=== PATIENT | female | born 1945 | race Caucasian/White ===

== ENCOUNTER → 2018-02-08 14:26 | Outpatient (CLI) | payer OTHER, SELFPAY ==
[2018-02-08 15:20] LABS: Hematocrit 37.4 % (36-46); Hemoglobin 12.7 g/dL (12.0-16.0)
[2018-02-08 16:05] LABS: BUN Creatinine Ratio 9.4 (6-22); Blood Urea Nitrogen 29 mg/dL (7-17); Calcium 9.8 mg/dL (8.4-10.2); Carbon Dioxide 23 mmol/L (22-32); Chloride 104 mmol/L (98-107); Estimated Glomerular Filt Rate 14.9 mL/min (>60); Glucose 110 mg/dL (80-110); HEMOLYSIS < 15 (0-50); Potassium 4.9 mmol/L (3.4-5.1); Sodium 140 mmol/L (137-145)
[2018-02-10 16:12] LABS: Parathyroid Hormone Int 102 pg/mL (14-64)
== END ==
PROVIDERS: PCP Family Medicine; Visit Provider Student in an Organized Health Care Education/Training Program
DX: N05.9 Unspecified nephritic syndrome with unspecified morphologic changes (principal); D50.0 Iron deficiency anemia secondary to blood loss (chronic); D64.9 Anemia, unspecified; N25.81 Secondary hyperparathyroidism of renal origin
CPT/HCPCS: 36415; 80048; 82728; 83970; 85014; 85018

== ENCOUNTER → 2018-04-12 15:38 | Outpatient (CLI) | payer OTHER, SELFPAY ==
[2018-04-12 16:00] LABS: Hematocrit 35.7 % (36-46); Hemoglobin 11.9 g/dL (12.0-16.0)
[2018-04-12 16:26] LABS: HEMOLYSIS < 15 (0-50); Iron 78 ug/dL (37-170)
[2018-04-12 16:29] LABS: BUN Creatinine Ratio 8.2 (6-22); Blood Urea Nitrogen 28 mg/dL (7-17); Calcium 9.8 mg/dL (8.4-10.2); Carbon Dioxide 23 mmol/L (22-32); Chloride 108 mmol/L (98-107); Estimated Glomerular Filt Rate 13.4 mL/min (>60); Glucose 134 mg/dL (80-110); HEMOLYSIS < 15 (0-50); Potassium 4.8 mmol/L (3.4-5.1); Sodium 145 mmol/L (137-145)
[2018-04-12 16:37] LABS: Percent Iron Saturation 29 % (15-50); Total Iron Binding Capacity 267 ug/dL (265-497); Transferrin 220 mg/dL (206-381)
== END ==
PROVIDERS: PCP Family Medicine; Visit Provider Student in an Organized Health Care Education/Training Program
DX: N05.9 Unspecified nephritic syndrome with unspecified morphologic changes (principal); D50.0 Iron deficiency anemia secondary to blood loss (chronic); D64.9 Anemia, unspecified
CPT/HCPCS: 36415; 80048; 82728; 83540; 83550; 85014; 85018

== ENCOUNTER → 2018-04-14 08:00 | Outpatient (CLI) | payer OTHER, SELFPAY ==
[2018-04-14 09:16] LABS: Hemoglobin A1C% w Est Avg Glu 4.9 % (4.0-6.0)
[2018-04-14 09:32] LABS: Alanine Aminotransferase 22 IU/L (9-52); Albumin 3.9 g/dL (3.5-5.0); Albumin Globulin Ratio 1.3 (1.0-2.8); Alkaline Phosphatase 65 U/L (38-126); Aspartate Aminotransferase 23 IU/L (14-36); BUN Creatinine Ratio 7.1 (6-22); Bilirubin Total 0.4 mg/dL (0.2-1.3); Bilirubin Unconjugated 0.2 mg/dL (0.0-1.1); Blood Urea Nitrogen 25 mg/dL (7-17); Calcium 9.8 mg/dL (8.4-10.2); Carbon Dioxide 24 mmol/L (22-32); Chloride 109 mmol/L (98-107); Cholesterol 171 mg/dL (140-199); Estimated Glomerular Filt Rate 12.9 mL/min (>60); Globulin 2.9 g/dL (1.7-4.1); Glucose 120 mg/dL (80-110); HDL Cholesterol 43 mg/dL (40-60); HEMOLYSIS < 15 (0-50); LDL Cholesterol Calculated 96 mg/dL (<100); Sodium 143 mmol/L (137-145); Total Protein 6.8 g/dL (6.3-8.2); Triglycerides 161 mg/dL (35-150)
[2018-04-14 09:38] LABS: Add Manual Diff / Slide Review NO; Basophils Percent Auto 1.1 % (0-2); Hematocrit 34.9 % (36-46); Hemoglobin 12.1 g/dL (12.0-16.0); Lymphocytes Percent Auto 27.5 % (25-40); Mean Corpuscular HGB Conc 34.5 % (30-36); Mean Corpuscular Hemoglobin 30.4 PG (26-34); Mean Corpuscular Volume 87.9 fL (80-100); Monocytes Percent Auto 4.6 % (3-14); Neutrophils Absolute Auto 5500 /uL (3000-5900); Neutrophils Percent Auto 58.8 % (50-75); Platelet Count 282 X10^3/uL (150-400); Red Blood Cell Count 3.97 X10^6/uL (4.0-5.2); Red Cell Distribution Width 13.2 % (11.6-14.8); White Blood Cell Count 9.4 X10^3/uL (4.5-11.0)
== END ==
PROVIDERS: PCP Family Medicine; Visit Provider Nurse Practitioner Family
DX: N18.4 Chronic kidney disease, stage 4 (severe) (principal)
CPT/HCPCS: 36415; 80053; 80061; 80076; 83036; 83880; 85025

== ENCOUNTER → 2018-06-11 07:17 | Outpatient (CLI) | payer OTHER, SELFPAY ==
[2018-06-11 08:12] LABS: Hematocrit 34.4 % (36-46); Hemoglobin 11.8 g/dL (12.0-16.0)
[2018-06-11 08:22] LABS: BUN Creatinine Ratio 7.6 (6-22); Blood Urea Nitrogen 28 mg/dL (7-17); Calcium 9.3 mg/dL (8.4-10.2); Carbon Dioxide 25 mmol/L (22-32); Chloride 108 mmol/L (98-107); Estimated Glomerular Filt Rate 12.1 mL/min (>60); Glucose 103 mg/dL (80-110); HEMOLYSIS < 15 (0-50); Potassium 4.7 mmol/L (3.4-5.1); Sodium 146 mmol/L (137-145)
[2018-06-11 08:41] LABS: HEMOLYSIS < 15 (0-50); Iron 50 ug/dL (37-170)
[2018-06-11 08:51] LABS: Transferrin 212 mg/dL (206-381)
[2018-06-11 08:53] LABS: Percent Iron Saturation 19 % (15-50); Total Iron Binding Capacity 262 ug/dL (265-497)
== END ==
PROVIDERS: Family Provider Student in an Organized Health Care Education/Training Program; PCP Student in an Organized Health Care Education/Training Program; Visit Provider Student in an Organized Health Care Education/Training Program
DX: N05.9 Unspecified nephritic syndrome with unspecified morphologic changes (principal); D50.9 Iron deficiency anemia, unspecified; D64.9 Anemia, unspecified
CPT/HCPCS: 36415; 80048; 82728; 83540; 83550; 85014; 85018

== ENCOUNTER → 2018-07-23 08:59 | Outpatient (CLI) | payer OTHER, SELFPAY ==
[2018-07-23 09:52] LABS: Hematocrit 33.4 % (36-46); Hemoglobin 11.2 g/dL (12.0-16.0)
[2018-07-23 10:02] LABS: HEMOLYSIS < 15 (0-50); Iron 47 ug/dL (37-170)
[2018-07-23 10:07] LABS: BUN Creatinine Ratio 8.4 (6-22); Blood Urea Nitrogen 32 mg/dL (7-17); Calcium 9.2 mg/dL (8.4-10.2); Carbon Dioxide 23 mmol/L (22-32); Chloride 107 mmol/L (98-107); Estimated Glomerular Filt Rate 11.7 mL/min (>60); Glucose 105 mg/dL (80-110); HEMOLYSIS < 15 (0-50); Potassium 4.5 mmol/L (3.4-5.1); Sodium 142 mmol/L (137-145)
[2018-07-23 10:13] LABS: Percent Iron Saturation 19 % (15-50); Total Iron Binding Capacity 244 ug/dL (265-497); Transferrin 186 mg/dL (206-381)
[2018-07-24 14:26] LABS: Parathyroid Hormone Int 145 pg/mL (14-64)
== END ==
PROVIDERS: Family Provider Student in an Organized Health Care Education/Training Program; PCP Student in an Organized Health Care Education/Training Program; Visit Provider Student in an Organized Health Care Education/Training Program
DX: N05.9 Unspecified nephritic syndrome with unspecified morphologic changes (principal); D50.0 Iron deficiency anemia secondary to blood loss (chronic); D64.9 Anemia, unspecified; N25.81 Secondary hyperparathyroidism of renal origin
CPT/HCPCS: 36415; 80048; 82728; 83540; 83550; 83970; 85014; 85018

== ENCOUNTER → 2018-08-27 07:06 | Outpatient (CLI) | payer OTHER, SELFPAY ==
[2018-08-27 08:58] LABS: Hematocrit 31.4 % (36-46); Hemoglobin 10.9 g/dL (12.0-16.0)
[2018-08-27 09:24] LABS: HEMOLYSIS < 15 (0-50); Iron 53 ug/dL (37-170)
[2018-08-27 09:25] LABS: BUN Creatinine Ratio 9.7 (6-22); Blood Urea Nitrogen 37 mg/dL (7-17); Calcium 9.1 mg/dL (8.4-10.2); Carbon Dioxide 23 mmol/L (22-32); Chloride 108 mmol/L (98-107); Estimated Glomerular Filt Rate 11.7 mL/min (>60); Glucose 94 mg/dL (80-110); HEMOLYSIS < 15 (0-50); Potassium 4.8 mmol/L (3.4-5.1); Sodium 141 mmol/L (137-145)
[2018-08-27 09:36] LABS: Percent Iron Saturation 21 % (15-50); Total Iron Binding Capacity 255 ug/dL (265-497); Transferrin 193 mg/dL (206-381)
== END ==
PROVIDERS: Family Provider Student in an Organized Health Care Education/Training Program; PCP Student in an Organized Health Care Education/Training Program; Visit Provider Student in an Organized Health Care Education/Training Program
DX: N05.9 Unspecified nephritic syndrome with unspecified morphologic changes (principal); D50.0 Iron deficiency anemia secondary to blood loss (chronic); D64.9 Anemia, unspecified
CPT/HCPCS: 36415; 80048; 82728; 83540; 83550; 85014; 85018

== ENCOUNTER → 2018-10-08 09:35 | Outpatient (CLI) | payer OTHER, SELFPAY ==
[2018-10-08 10:07] LABS: Hematocrit 32.5 % (36-46); Hemoglobin 10.6 g/dL (12.0-16.0)
[2018-10-08 10:38] LABS: HEMOLYSIS < 15 (0-50); Iron 63 ug/dL (37-170)
[2018-10-08 10:49] LABS: Percent Iron Saturation 26 % (15-50); Total Iron Binding Capacity 245 ug/dL (265-497); Transferrin 185 mg/dL (206-381)
[2018-10-08 10:51] LABS: BUN Creatinine Ratio 8.8 (6-22); Blood Urea Nitrogen 38 mg/dL (7-17); Calcium 8.9 mg/dL (8.4-10.2); Carbon Dioxide 21 mmol/L (22-32); Chloride 108 mmol/L (98-107); Estimated Glomerular Filt Rate 10.2 mL/min (>60); Glucose 148 mg/dL (80-110); HEMOLYSIS < 15 (0-50); Potassium 4.3 mmol/L (3.4-5.1); Sodium 140 mmol/L (137-145)
[2018-10-11 16:38] LABS: Parathyroid Hormone Int 187 pg/mL (14-64)
== END ==
PROVIDERS: Family Provider Student in an Organized Health Care Education/Training Program; PCP Student in an Organized Health Care Education/Training Program; Visit Provider Student in an Organized Health Care Education/Training Program
DX: N05.9 Unspecified nephritic syndrome with unspecified morphologic changes (principal); D50.0 Iron deficiency anemia secondary to blood loss (chronic); D64.9 Anemia, unspecified; N25.81 Secondary hyperparathyroidism of renal origin
CPT/HCPCS: 36415; 80048; 82728; 83540; 83550; 83970; 85014; 85018

== ENCOUNTER → 2018-10-18 10:07 | Outpatient (CLI) | payer OTHER, SELFPAY ==
--- NOTE | 2018-10-18 | DI.RAD.S_ITS ---
PROCEDURE: XR CHEST 2V INDICATIONS: END STAGE RENAL DISEASE, SHORTNESS OF BREATH TECHNIQUE: 2 views of the chest were acquired. COMPARISON: [facility], , CHEST 2 VIEW, 09/17/2008, 16:33. FINDINGS: Surgical changes and devices: None. Lungs and pleura: There is mild appearance of opacity within the left base including left costophrenic angle blunting. Mediastinum: Mediastinal contours are normal. Heart size is normal. Bones and chest wall: No suspicious bony abnormalities. Soft tissues appear unremarkable. IMPRESSION: Mild left effusion. Small areas of developing underlying airspace disease such as atelectasis and/or pneumonia cannot be excluded. Dictated by: Marycruz Banks M.D. on 10/18/2018 at 13:24 Approved by: Marycruz Banks M.D. on 10/18/2018 at 13:25
[2018-10-18 16:56] LABS: Hepatitis B Surface Antigen NEGATIVE s/c (NEGATIVE)
[2018-10-18 17:14] LABS: Hep C Virus Ab w/Reflex Quant NEGATIVE s/c (NEGATIVE)
[2018-10-20 15:41] LABS: Hepatitis B Core Antibody Nonreactive (Nonreactive)
[2018-10-20 16:10] LABS: Hepatitis B Surf Ab Qualitativ Nonreactive (Nonreactive)
== END ==
PROVIDERS: Student in an Organized Health Care Education/Training Program; Family Provider Student in an Organized Health Care Education/Training Program; PCP Student in an Organized Health Care Education/Training Program; Visit Provider Student in an Organized Health Care Education/Training Program
DX: B19.10 Unspecified viral hepatitis B without hepatic coma (principal); B17.10 Acute hepatitis C without hepatic coma; R06.02 Shortness of breath
CPT/HCPCS: 36415; 71046; 86704; 86706; 86803; 87340

== ENCOUNTER → 2018-11-12 09:45 | Outpatient (CLI) | payer OTHER, SELFPAY ==
--- NOTE | 2018-11-12 | DI.US.S_ITS ---
PROCEDURE: US RENAL COMPLETE INDICATIONS: END STAGE RENAL DISEASE/HEMATURIA TECHNIQUE: Real-time scanning was performed of the kidneys and bladder, with image documentation. COMPARISON: [facility], US, RENAL COMPLETE, 10/23/2014, 8:47. FINDINGS: Kidneys: Kidneys are normal in size. Right kidney measures 12.2 cm long; left kidney measures 9.2 cm long. Right renal cortical thickness is 1.6 cm; left renal cortical thickness is 1.0 cm. Renal cortical echotexture is hyperechoic consistent with underlying medical renal disease. No hydronephrosis or nephrolithiasis. No suspicious solid mass lesions. Several scattered renal cortical cysts are present, measuring up to 3.2 cm in maximal dimension on the right and 1.6 cm in maximal dimension on the left. Bladder: Pre-void bladder volume is 112 mL. Post-void residual is 0 mL. Pre-void images demonstrate no intraluminal masses or stones. On pre-void images, neither ureteral jets are noted with color Doppler interrogation. (Of note, ureteral jets may not be detectable in up to 25% of cases due to insufficient differences in specific gravity between ureteral and bladder urine). Miscellaneous: No free pelvic fluid. IMPRESSION: Echogenic renal echotexture consistent with underlying medical renal disease, no hydronephrosis or nephrolithiasis found. Scattered renal cortical cysts incidentally noted. Dictated by: Shady Alexandra M.D. on 11/12/2018 at 10:34 Approved by: Shady Alexandra M.D. on 11/12/2018 at 10:36
== END ==
PROVIDERS: Family Provider Student in an Organized Health Care Education/Training Program; PCP Student in an Organized Health Care Education/Training Program; Visit Provider Student in an Organized Health Care Education/Training Program
DX: R31.9 Hematuria, unspecified (principal); N18.6 End stage renal disease; N28.1 Cyst of kidney, acquired
CPT/HCPCS: 76770

== ENCOUNTER 2019-08-14 06:13 | Day surgery (SDC) | payer MEDICARE, SELFPAY ==
--- NOTE | 2019-08-13 19:39 | PM.PREOP ---
Pre-operative Note Interval Note History & Physical reviewed/Exam performed by Physician: Yes Changes to H&P: No H&P completed within 30 days and has changed as indicated here:: Pre diabetic.
[2019-08-14] MEDS: PROPARACAINE 0.5% OPHTH SOL 2 DROPS EYE-OP (07:19)
[2019-08-14] MEDS: CATARACT EYE COMPOUND (10 DROPS/SYRINGE) 3 DROPS EYE-OP (07:20)
[2019-08-14 07:25] VITALS: BP 159/62; PULSE 82; RESP 20; TEMP 35.9; O2SAT 98; BMI 27.6
--- NOTE | 2019-08-14 07:31 | PM.OP.1 ---
Operative Date/Time/Diagnoses Date of procedure: 08/14/19 Time of procedure: 07:45 Procedure & Clinicians Procedure: Preoperative diagnoses: 1. Left steroid related advanced cataract.. 2. stage 5 renal insuffficiency on dialysis. 3. HTN 4. Neuropathy. 5. Anxiety. 6. Dialysis fistula. 7. Angina. Postoperative diagnoses: 1. Left phacoemulsification surgery with use of PCIOL. Surgeon: Shila Rutledge MD Complications: none Specimen: None Implant: ZCBOO+19.5 Blood loss: None Anesthesia: Retrobulbar with monitored standby. Description of procedure: Dictated by: Shila Rutledge MD Copy to: [facility] Post operative diagnoses: Procedure: Phacoemulsification with posterior chamber intraocular lens implant Surgeon: Shila Rutledge MD Blood loss: None Anesthesia: Retrobulbar with monitored standby Description of procedure: Patient has presented with decreased vision due to cataract which is affecting activities of daily living. The patient wants surgery to improve vision. She has steroid related posterior subcapsular nuclear sclerotic changes. She has stage 5 renal insufficiency and is on dialysis. She had a fistula placed at 2 days ago and has dialysis this afternoon. She denies diabetes. A patch test was done if she says she has an iodine allergy and she had no reaction to topical Betadine. The patient was taken to the operating room and given IV sedation. She is a poor dilator. A retrobulbar block consisting of 6 cc of 2% xylocaine without epinephrine mixed half and half with 0.5% Marcaine with 1 cc of hyaluronidase added is placed between the medial and lateral 1/3 of the inferior orbital rim. Lid akinesia is obtain with 1% xylocaine with epinephrine infiltrated along the lid margin. The eye is manually massaged for 30 sec, prepped using Betadine solution, and draped in the usual sterile fashion. Temporal approach was made, a 1 mm side-port incision was performed 90 degrees from the planned corneal wound. Phenylephrine 1.5% mixed with 1% xylocaine 0.2 cc was placed into the anterior chamber. Viscoat followed by Tawanna was then placed. A 2.6 mm clear incision with a 2.6 mm blade was placed. A 360 degree capsulorrhexis style capsulotomy was then performed with a cystitome needle on a Healon. Hydrodelineation and hydrodissection were performed. The phacoemulsification unit is introduced, and sculpting used to groove the central lens. It is then removed in chopping mode. Epi nucleus is removed with epinuclear mode and irrigation aspiration was used to remove the peripheral cortex. The posterior capsule is polished. The intraocular lens is selected, inspected, power confirmed, and placed in the posterior chamber. The wound was stromally hydrated and tested for leaks, there was none and was left sutureless. Vigamox 0.1 cc was placed into the anterior chamber. Kenalog 0.2 cc was placed in the superior subconjunctival space. A drop of antibiotic and was placed and the eye was patched and shielded. The patient was stable and returned to the recovery room in excellent condition. No Betadine reaction was present at the end of the case. Dictated by: Shila Rutledge MD Copy to: [facility] Same procedure as scheduled: Yes
[2019-08-14 07:32] VITALS: BMI 27.6
[2019-08-14] MEDS: LACTATED RINGERS 1,000 ML 42 ML IV (07:40)
[2019-08-14] MEDS: BALANCED SALT IRRIG SOLN NO.2 500 ML, EPINEPHrine 1 MG IRR (08:17)
[2019-08-14] MEDS: LIDOCAINE 2% 4 ML, BUPIVACAINE 0.5% (PF) 4 ML, HYALURONIDASE 150 UNIT INJ (08:18)
[2019-08-14] MEDS: TRIAMCINOLONE 50 MG/5 ML VIAL INJ (08:18)
[2019-08-14] MEDS: PHENYLEPHRINE/LIDOCAINE VIAL (OR) 0.2 ML EYE-OP (08:20)
[2019-08-14] MEDS: MOXIFLOXACIN INJ 5 MG/ML VIAL EYE-OP (08:20)
[2019-08-14] MEDS: HYALURONATE SODIUM 10 MG/ML SYRINGE INJ (08:21)
[2019-08-14] MEDS: ERYTHROMYCIN OPHTH 1 GM OINT 1 APPLIC EYE-LEFT (08:21)
[2019-08-14] MEDS: CHONDROIDTIN/SOD HYALURONATE 1.05 ML SYRINGE INTRAOCULA (08:21)
[2019-08-14 08:45] VITALS: BP 158/65; PULSE 71; RESP 16; TEMP 36.4; O2SAT 99
== END 2019-08-14 08:57 | disposition home or self-care (01) ==
LOC: OR 06:17
PROVIDERS: PCP Student in an Organized Health Care Education/Training Program; Visit Provider Ophthalmology
PROC: (CPT 66984; principal; 2019-08-14 07:45)
DX: H26.32 Drug-induced cataract, left eye (principal); I10 Essential (primary) hypertension; N18.5 Chronic kidney disease, stage 5; Z99.2 Dependence on renal dialysis
CPT/HCPCS: 66984; J0171; J2704; J3301; J3470

== ENCOUNTER 2019-08-28 07:01 | Day surgery (SDC) | payer MEDICARE, SELFPAY ==
--- NOTE | 2019-08-24 11:53 | PM.PREOP ---
Pre-operative Note Interval Note History & Physical reviewed/Exam performed by Physician: Yes Changes to H&P: No H&P completed within 30 days and has changed as indicated here:: Is on every other day renal dialysis. She will be undergoing renal dialysis later today.
--- NOTE | 2019-08-24 11:55 | PM.OP.1 ---
Operative Date/Time/Diagnoses Date of procedure: 08/28/19 Time of procedure: 08:45 Procedure & Clinicians Procedure: Preoperative diagnoses: 1. Right nuclear sclerotic and cortical cataract. 2. Poor pupillary dilation. 3. Renal failure on dialysis. 4. Hypertension. 5. Neuropathy. 6. Epiretinal membranes. Postoperative diagnoses: 1. Cataract removed by phacoemulsification with placement of posterior chamber intraocular lens. Procedure: Phacoemulsification with posterior chamber intraocular lens implant Surgeon: Shila Rutledge MD Complications: None Specimen: None Implant: ZCBOO+20.0 Blood loss: None Anesthesia: Retrobulbar with monitored standby Description of procedure: Patient presents with a complaint of decreased vision due to cataract which is affecting activities of daily living. She underwent successful cataract surgery in her other eye 2 weeks ago without complication. She has multiple medical problems including chronic renal failure which is now requiring every other day dialysis. She will undergo dialysis again today. She is stable for surgery and desires treatment as she feels her vision is affecting her life. She has multiple allergies she was patch tested last surgery for Betadine sensitivity and had none. She is a poor dilator and pupillary dilation is maximized prior to surgery. This may be due to her chronic morphine use. The patient wants surgery to improve vision. The patient was taken to the operating room and given IV sedation. A retrobulbar block consisting of 6 cc of 2% xylocaine without epinephrine mixed half and half with 0.5% Marcaine with 1 cc of hyaluronidase added is placed between the medial and lateral 1/3 of the inferior orbital rim. The eye is manually massaged for 30 sec, prepped using Betadine solution, and draped in the usual sterile fashion. Temporal approach was made, a 1 mm side-port incision was made 90? from the proposed clear corneal incision position. Phenylephrine 1.5% mixed with 1% xylocaine 0.2 cc was placed into the anterior chamber. Viscoat followed by Tawanna was then placed. A 2.6 mm clear incision with a 2.6 mm blade was placed. A 360 degree capsulorrhexis style capsulotomy was then performed with a cystitome needle on a Healon. Hydrodelineation and hydrodissection were performed. The phacoemulsification unit is introduced, and sculpting notice used to groove the central lens. It is then removed in chopping mode. Epi nucleus is removed with epinuclear mode and irrigation aspiration was used to remove the peripheral cortex. The posterior capsule is polished. The intraocular lens is selected, inspected, power confirmed, and placed in the posterior chamber. The wound was stromally hydrated and tested for leaks, there was none and it was left sutureless. Vigamox 0.1 cc was placed into the anterior chamber. Kenalog 0.2 cc was placed in the superior subconjunctival space. A drop of antibiotic and was placed and the eye was patched and shielded. The patient was stable and returned to the recovery room in excellent condition. Dictated by: Shila Rutledge MD Copy to: [facility] Same procedure as scheduled: Yes
[2019-08-28] MEDS: PROPARACAINE 0.5% OPHTH SOL 2 DROPS EYE-OP (07:48)
[2019-08-28] MEDS: CATARACT EYE COMPOUND (10 DROPS/SYRINGE) 3 DROPS EYE-OP (07:49)
[2019-08-28 08:07] VITALS: BP 143/67; PULSE 78; RESP 15; TEMP 36.2; O2SAT 97; BMI 27.9
--- NOTE | 2019-08-28 09:15 | SUR.OPER ---
Supine on eye stretcher, head on extension cradle secured with tape. Arms tucked at sides with blanket. Pillow under knees.
[2019-08-28] MEDS: PHENYLEPHRINE/LIDOCAINE VIAL (OR) 0.2 ML EYE-OP (09:16)
[2019-08-28] MEDS: LIDOCAINE 2% 4 ML, BUPIVACAINE 0.5% (PF) 4 ML, HYALURONIDASE 150 UNIT INJ (09:17)
[2019-08-28] MEDS: MOXIFLOXACIN INJ 5 MG/ML VIAL EYE-OP (09:18)
[2019-08-28] MEDS: TRIAMCINOLONE 50 MG/5 ML VIAL INJ (09:19)
[2019-08-28] MEDS: BALANCED SALT IRRIG SOLN NO.2 500 ML, EPINEPHrine 1 MG IRR (09:20)
[2019-08-28] MEDS: CHONDROIDTIN/SOD HYALURONATE 1.05 ML SYRINGE INTRAOCULA (09:20)
[2019-08-28] MEDS: HYALURONATE SODIUM 10 MG/ML SYRINGE INJ (09:21)
[2019-08-28] MEDS: ERYTHROMYCIN OPHTH 1 GM OINT 1 APPLIC EYE-RIGHT (09:22)
[2019-08-28 09:40] VITALS: BP 157/68; PULSE 64; RESP 16; TEMP 36.4; O2SAT 100
== END 2019-08-28 09:47 | disposition home or self-care (01) ==
LOC: OR 07:04
PROVIDERS: PCP Student in an Organized Health Care Education/Training Program; Referring Provider Ophthalmology; Visit Provider Ophthalmology
PROC: (CPT 66984; principal; 2019-08-28 08:45)
DX: H25.811 Combined forms of age-related cataract, right eye (principal); H25.041 Posterior subcapsular polar age-related cataract, right eye
CPT/HCPCS: 66984; J0171; J2704; J3301; J3470

== ENCOUNTER → 2020-02-03 12:46 | Outpatient (CLI) | payer MEDICARE, SELFPAY | PROVIDERS: PCP Student in an Organized Health Care Education/Training Program; Referring Provider Student in an Organized Health Care Education/Training Program; Visit Provider Student in an Organized Health Care Education/Training Program | DX: Z13.820 Encounter for screening for osteoporosis (principal); M81.0 Age-related osteoporosis without current pathological fracture; Z78.0 Asymptomatic menopausal state; N18.5 Chronic kidney disease, stage 5; Z91.89 Other specified personal risk factors, not elsewhere classified; Z87.891 Personal history of nicotine dependence | CPT/HCPCS: 77080 ==

== ENCOUNTER → 2020-04-17 15:55 | Outpatient (CLI) | payer MEDICARE, SELFPAY ==
[2020-04-19 09:32] LABS: COVID19 Sendout Not Detected (Not Detect)
== END ==
PROVIDERS: PCP Student in an Organized Health Care Education/Training Program; Visit Provider Physician Assistant
DX: Z11.59 Encounter for screening for other viral diseases (principal)
CPT/HCPCS: 87635

== ENCOUNTER → 2020-04-17 16:08 | Outpatient (CLI) | payer MEDICARE, SELFPAY ==
--- NOTE | 2020-04-17 16:11 | DI.RAD.S_ITS ---
PROCEDURE: XR CHEST 2V INDICATIONS: cough TECHNIQUE: 2 views of the chest were acquired. COMPARISON: [facility], , CHEST 2 VIEW, 09/17/2008, 16:33. [facility], , XR CHEST 2V, 10/18/2018, 10:30. FINDINGS: Surgical changes and devices: Cholecystectomy clips are seen. Lungs and pleura: Lungs are clear. No pleural effusions or pneumothorax. The lungs are hyperexpanded, with flattening of the hemidiaphragms seen. Mediastinum: The cardiac contours are within normal limits. The aorta demonstrates calcification and tortuosity. Bones and chest wall: No suspicious bony abnormalities. Age-appropriate bony degenerative changes are seen. Accentuated thoracic kyphosis is seen. Soft tissues appear unremarkable. IMPRESSION: Hyperexpanded lungs, without an acute cardiopulmonary process identified. Postoperative and degenerative changes are seen. Dictated by: Luis Paredes M.D. on 04/17/2020 at 15:25 Approved by: Luis Paredes M.D. on 04/17/2020 at 15:28
== END ==
PROVIDERS: PCP Student in an Organized Health Care Education/Training Program; Referring Provider Physician Assistant; Visit Provider Physician Assistant
DX: Z11.59 Encounter for screening for other viral diseases (principal); R05 Cough
CPT/HCPCS: 71046; 87635

== ENCOUNTER → 2020-07-13 12:59 | Outpatient (CLI) | payer MEDICARE, SELFPAY ==
--- NOTE | 2020-07-13 13:06 | DI.RAD.S_ITS ---
PROCEDURE: FL BARIUM SWALLOW W SPEECH INDICATIONS: Nontoxic multinodular goiter,Dysphagia, unspecifie COMPARISON: TECHNIQUE: Examination was conducted in conjunction with speech pathology per standard protocol. In the lateral projection, filming was performed of the patient swallowing. AP projection filming may also be performed with patient swallowing. COMPARISON: [facility], CR, XR CHEST 2V, 04/17/2020, 16:04. FINDINGS: Function: The oral preparatory phase appears normal, with proper containment. The subsequent oral propulsive phase, pharyngeal phase, and esophageal phase of swallowing also appear appeared abnormal with multiple events of anterior penetration, mild in overall severity. There is also laryngotracheal penetration with associated mild aspiration. No pathologic vallecular pooling. Morphology: No cricopharyngeal bar is identified. No cervical esophageal webs. No Zenker's diverticulum. No strictures. IMPRESSION: Multiple episodes of anterior penetration and there was associated mild tracheal aspiration over the course of this examination. Note: At 1 point during frontal view assessment of the swallowing mechanism it was noted that there may be deviation of the esophagus rightward in the area of the thyroid gland. It is noted that thyroid ultrasound has been ordered for this patient. Please also review the dedicated speech therapy swallowing evaluation report which will be independently generated. Dictated by: Shady Alexandra M.D. on 07/13/2020 at 14:16 Approved by: Shady Alexandra M.D. on 07/13/2020 at 14:19
--- NOTE | 2020-07-13 13:06 | DI.US.S_ITS ---
PROCEDURE: US THYROID INDICATIONS: Nontoxic multinodular goiter,Dysphagia, unspecifie TECHNIQUE: Real-time scanning was performed of the thyroid gland, with image documentation. COMPARISON: None. FINDINGS: Right: Thyroid lobe measures 5.9 x 2.2 x 1.7 cm, and is homogeneous in echotexture. Left: Thyroid lobe measures 5.9 x 3.0 x 4.0 cm, and is homogenous in echotexture. Isthmus: 6.0 mm thick. Nodule number: 1 Location: Right superior Size: 1.8 x 0.8 x 1.4 cm. Composition: Mixed cystic and solid Echogenicity: Heterogeneous Shape: wider than tall. Margins: Smooth Echogenic foci: Internal punctate echogenic foci Total points: 6 ACR TI-RADS category: Moderately suspicious Nodule number: 2 Location: Right mid Size: 1.2 x 0.9 x 1.4 cm. Composition: Solid Echogenicity: Hypoechoic Shape: wider than tall. Margins: Smooth Echogenic foci: None Total points: 4 ACR TI-RADS category: Moderately suspicious Nodule number: 3 Location: Left mid to upper Size: 3.8 x 2.6 x 3.1 cm. Composition: Predominantly cystic Echogenicity: Heterogeneous Shape: wider than tall. Margins: Smooth Echogenic foci: None Total points: 3 ACR TI-RADS category: Mildly suspicious Nodule number: 4 Location: Left lower Size: 1.7 x 1.6 x 1.5 cm. Composition: Solid Echogenicity: Predominantly isoechoic Shape: wider than tall. Margins: Smooth Echogenic foci: Peripheral calcification Total points: 5 ACR TI-RADS category: Moderately suspicious Nodule number: 5 Location: Left lower Size: 1.4 x 1.2 x 1.3 cm. Composition: Solid Echogenicity: Hypoechoic Shape: wider than tall. Margins: Irregular Echogenic foci: Macro calcification Total points: 6 ACR TI-RADS category: Moderately suspicious IMPRESSION: Bilateral thyroid nodules. Recommend sonographically directed fine-needle aspiration involving the left #3 and left #4 nodules. ACR TI-RADS definitions and recommendations: TI-RADS 1 (benign): 0 points. FNA not needed. TI-RADS 2 (not suspicious): 2 points. FNA not needed. TI-RADS 3 (mildly suspicious): 3 points. * FNA if 2.5 cm or larger, follow up if 1.5 cm or larger (at 1, 3, and 5 years). TI-RADS 4 (moderately suspicious): 4-6 points. * FNA if 1.5 cm or larger, follow up if 1 cm or larger (at 1, 2, 3, and 5 years). TI-RADS 5 (highly suspicious): 7 points or more. * FNA if 1 cm or larger, follow up if 0.5 cm or larger (every year for 5 years). Dictated by: Jamie Mckenna [facility] Interpreted: Jairo Potts MD on 07/13/2020 at 15:47 Approved by: Jairo Potts M.D. on 07/13/2020 at 20:51
--- NOTE | 2020-07-14 17:20 | ST.SWALLOW ---
Visit Care Team Role Provider Type Saad Boucher MD Primary Care Provider Physician Specialty: Internal Medicine Address: [address] [place] [address], [address] [place] [address], [id number] Email: [email or web address] Dmitriy Hudson MD Attending Provider Physician Referring Provider Specialty: Ear, Nose, Throat Address: [address] [place] [address], [id number] Email: [email or web address] ST Modified Barium Swallow Study HIDE EXAMINER Modified Barium Swallow Study Start: 07/13/20 17:01 Freq: Status: Active Protocol: Document 07/13/20 17:01 CHRISTIE (Rec: 07/13/20 17:18 CHRISTIE [id number]) Modified Barium Swallow Study Total Time Visit Start Time 13:30 Visit Stop Time 14:10 Total Visit Minutes [address] Dmitriy Hudson Reason for Referral Dysphagia; Nontoxic multinodular goiter Setting Setting Outpatient Care Patient Information Identification Type Name,ID Card Patient History The pt is a 74-yr-old female with c/o pills and bulky solids (e.g., bread) sticking in her throat since over the last ~6 mos. She attempts to clear this with additional swallows of liquid, which is sometimes effective. She stated that if pills do not clear, they start to burn her throat. She does take sometimes up to 5 pills at one time. The pt reported having a thyroid nodule and questioned if that was contributing to her swallow difficulties. Also reported stage 5 kidney failure. Denied hx of stroke and pneumonia. Subjective Observations The pt arrived on time and provided case history. Procedure was explained and she was in agreement and seated in chair. Patient Positioning Position View Lat-A/P Imaging Lateral View Textures Administered Trials Presented Thin Liquid via Spoon,Thin Liquid via Cup,[place] Liquid via Spoon,[place] Liquid via Cup,Honey Liquid via Spoon, Dysphagia Blenderized Textures ,Regular Textures Oral Phase Source: MBSIMP (TM) (C) Bolus Specific Scoring Grid Lip Closure No Impairment (WNL) Tongue Control During Bolus Hold No Impairment (WNL) Bolus Prep/Mastication No Impairment (WNL) Bolus Transport/Lingual Motion Mild Impairment A/P Lingual Propulsion Delay Yes: Escape to pharynx Oral Residue Mild Impairment Residue Clearing WFL Nasal Regurgitation No Additional Oral Phase Observations Oral Peripheral Exam: Symmetrical features. Mildly reduced lingual strength; otherwise features are WNL of strength, coordination, and ROM. Pt has natural dentition, some molars missing. Oral Phase: Reduced back of tongue tone and strength allows for posterior escape of liquids to pharynx prior to swallow trigger. Mild oral residue with all trials, clears with subsequent swallow . Oral residue of pudding and cookie escaped to pharynx without swallow trigger initiated by pt; HIDE EXAMINER prompted pt to swallow. Pharyngeal Phase Source: MBSIMP (TM) (C) Bolus Specific Scoring Grid Delayed Initiation of Pharyngeal Swallow Yes: Liquid bolus escape to pyriform sinuses Soft Palate Elevation No Impairment (WNL) Tongue Base Strength/Range of Motion Mild Impairment Residue Along the Tongue Base Yes: Trace to mild Clearance of Residue Along Tongue Base WFL Laryngeal Elevation Moderate Impairment Anterior Hyoid Movement Mild Impairment Epiglottic Range of Motion Mild Impairment Vallecular Residue Yes Clearance of Vallecular Residue Minimal Impairment Laryngeal Vestibular Closure Moderate Impairment Pharyngeal Stripping Wave Moderate Impairment Pharyngeal Contraction WFL Posterior Pharyngeal Wall Residue No Upper Esophageal Sphincter Opening No Impairment (WNL) Residue in the Pyriform Sinuses No Esophageal Clearance Upright Position WFL Pharyngoesophageal Backflow Observed No Additional Pharyngeal Phase Observations Consistent penetration of thin liquids without cough response was observed in all trials (PAS 3). Residue remains along anterior wall of larynx and did contact the VFs x1 (PAS 5). Mark aspiration of thin liquid was observed in first tsp presentation without cough response (PAS 8). Mark aspiration of NTL was observed during consecutive sips prior to swallow trigger of second sip. Again, no cough response was triggered. The pt was instructed to cough after every episode of penetration and aspiration. Cough was somewhat but not completely productive in clearing residue. Tracheal residue was noted for the duration of the swallow study. Delayed swallow trigger was noted with all trials with exception of HTL, allowing liquids to spill as far as to pyriform sinuses, and into trachea x1 as described above, prior to swallow initiation. Hyolaryngeal elevation and epiglottic inversion were inconsistent with epiglottis occasionally inverting only to horizontal positioning. Closure of laryngeal vestibule was incomplete with all trials, allowing for penetration and aspiration of thin and nectar-thick liquids. Upon close video review, a cricopharyngeal bar was observed but did not impede bolus flow. The pt reported pain at the level of the thyroid during swallows of honey-thick liquid and pudding. No pain when swallowing cookie; the pt stated she felt that she was able to adequately masticate the cookie to reduce bolus bulk. No significant pharyngeal residue was observed following the swallow of these substances. The pt reported no sticking sensations throughout the study. A/P View Textures Administered Trials Presented [place] Liquid via Spoon, Pudding Thick Liquid via Spoon ,Barium Tablet A/P View Observations Pharyngeal Contraction WFL Esophageal Function WFL Esophageal Clearance Upright Position WFL Additional Observations Pharyngeal constriction was equal bilaterally. Contrast was observed to deviate to right side at proximal esophagus. A 13 mm barium tablet passed to stomach without obstruction. Clinical Impressions Dysphagia Type Mild Oral and Moderate Pharyngeal Dysphagia Findings The pt presents with mild oral and moderate pharyngeal dysphagia. Oral dysphagia is characterized by reduced posterior bolus containment secondary to back of tongue weakness, allowing for early spillage to pharynx. Pharyngeal dysphagia is characterized by delayed swallow initiation and silent penetration and aspiration of trace to minimal amounts of thin and nectar-thick liquids. This resulted from reduced hyolaryngeal displacement, inconsistent epiglottic inversion, incomplete closure of the laryngeal vestibule, and reduced pharyngeal, laryngeal and tracheal sensation. The pt reported pain with swallow of honey- and pudding- thick contrast, although no abnormality of swallow, once triggered, was observed. A cricopharyngeal bar was seen upon video review and did not interfere with bolus flow. The pt reported no sticking sensations, and no obvious esophageal dysfunction was observed. Rehabilitation Potential Good Patient Appropriate for Therapy Yes Recommendations Diet Liquids Order [place] Diet Order Regular Medication Recommendation Whole in Carrier,One at a Time Additional Dietary Needs Single Sips Aspiration Precautions Recommended Precautions Upright at 90 Degrees,Small Bites/Sips Treatment Plan Therapy Recommendations Outpatient Speech Therapy Additional Therapy Recommendations Strengthening exercises; compensatory strategies for airway protection. Additional Recommended Referrals Follow up with ENT Compensatory Strategies Recommendations Sitting Upright (90 deg), Supersupraglottic Swallow Short Term Goals 1. The pt will complete exercises to increase strength , coordination and ROM of swallow musculature to improve oral containment and reduce aspiration. 2. The pt will use compensatory strategies with min cues to improve oral containment and airway protection during oral intake. Spool Maker Goals 1. The pt will independently perform HEP tasks as prescribed to improve swallow function and safety. 2. The pt will tolerate thin liquids and regular texture without aspiration, as measured by MBSS following course of dysphagia therapy.
== END ==
PROVIDERS: PCP Student in an Organized Health Care Education/Training Program; Referring Provider Otolaryngology; Visit Provider Otolaryngology
DX: E04.2 Nontoxic multinodular goiter (principal); R13.10 Dysphagia, unspecified
CPT/HCPCS: 74230; 76536; 92611

== ENCOUNTER 2020-10-14 13:30 | Outpatient (RCR) | payer MEDICARE, OTHER, SELFPAY ==
--- NOTE | 2020-08-31 13:18 | ST.OPIE ---
Visit Care Team Role Provider Type Saad Boucher MD Family Provider Physician Primary Care Provider Specialty: Internal Medicine Address: [address] [place] [address], [address], [place], [address] Email: [email or web address] Dmitriy Hudson MD Attending Provider Physician Referring Provider Specialty: Ear, Nose, Throat Address: [address] [place] [address], [address] Email: [email or web address] Speech-Language Pathology Initial Evaluation REVENUE INTEGRITY ANALYST Clinical Swallow Evaluation Start: 08/26/20 09:25 Freq: Status: Active Protocol: Document 08/26/20 09:25 CHRISTIE (Rec: 08/26/20 09:29 CHRISTIE [email or web address]) Clinical Swallow Evaluation Session Time Visit Start Time 09:30 Visit Stop Time 10:15 Total Visit Minutes 45 Visit Information Visit Number Initial Evaluation Plan of Care Dates 08/26/20 - 11/23/20 Insurance Information Medicare Referral Referring Provider Dr. 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 The pt was recommended regular diet texture and NTLs, meds whole in carrier. The pt attends today to initiate dysphagia treatment to improve swallow safety and to return to thin liquids. Medical hx includes thyroid nodule for which she is followed by ENT and Stage 5 kidney failure. Subjective Observations The pt arrived on time, no new complaints. Reports swallow to be about the same with sticking sensation in throat primarily with solids. Reported by Patient Current Diet Regular,Thin liquids Baseline Feeding Method Independent in self-feeding Patient Questionnaire No Objective Assessment Mental Status Alert,Responsive,Cooperative Nasality Within normal limits Phonation Within normal limits Respiratory Sufficiency Within normal limits Comment Oral peripheral exam was administered during MBSS and found to be WNL with exception of mildly reduced lingual strength. Pt has natural dentition, some molars missing . Food and Liquid Trials Position During Assessment Upright (90 degrees) Liquids Trialed Thin Administration Type Controlled cup sip Oral Impairment Mildly impaired Oral Phase Comments Impairment severity based on MBSS. MBSS findings included reduced back of tongue tone and strength that allowed for posterior escape of liquids to pharynx prior to swallow trigger. Pharyngeal Impairment Moderately impaired Pharyngeal Phase Comments Impairment severity based on MBSS. No overt s/sx of aspiration observed with trials of thin liquid with use of super-supraglottic swallow maneuver. Fatigue/Endurance Endurance WNL Strategies Attempted Super-supraglottic swallow Response/Comments Pt was educated on MBSS findings, including video review with pt. She asked good questions throughout and demonstrated good understanding of normal vs her abnormal swallow function and risks to safety. Trained pt in super-supraglottic swallow maneuver, which she performed with oral instruction and with no overt s/sx of aspiration. Findings Swallowing Function Oropharyngeal phase dysphagia Severity of Swallow Impairment Mildly-moderately impaired Contributing Factors to Swallow Reduced oral strength/ Impairment coordination/sensation,Delayed swallow initiation,Impaired airway protection Prognosis Good Based on Cognitive status,Duration of symptoms/severity Impact on Safety and Functioning Risk for aspiration Recommendations Instrumental Assessment No Swallowing Treatment Yes Frequency 1x/wk Duration 8 wks Recommended Solids Regular Recommended Liquids Thin Other Recommendations with use of super-supraglottic swallow maneuver; otherwise, NTL recommended. Safety Precautions/Swallowing Reduce distractions,Remain Recommendations upright (90 degrees) during all oral intake,Upright position at least 30 minutes after meals,Small bites and sips when eating,Slow rate; swallow between bites Medication Recommendations As Tolerated Education Patient/Caregiver Education Described results of evaluation,Patient expressed understanding of evaluation, Patient expressed agreement with goals & treatment plans, Patient requires further education/training Goals Short-term Goals 1. The pt will complete exercises to increase strength , coordination and ROM of swallow musculature to improve oral containment and reduce aspiration. 2. The pt will use compensatory strategies with min cues to improve oral containment and airway protection during oral intake. Long-term Goals 1. The pt will independently perform HEP tasks as prescribed to improve swallow function and safety. 2. The pt will tolerate thin liquids and regular texture without aspiration, as measured by MBSS following course of dysphagia therapy.
--- NOTE | 2020-09-02 11:47 | ST.IPDYTX ---
Visit Care Team Role Provider Type Saad Boucher MD Family Provider Physician Primary Care Provider Specialty: Internal Medicine Address: [address] [place] [address], Suite [facility], [place], [address] Email: [email or web address] Dmitriy Hudson MD Attending Provider Physician Referring Provider Specialty: Ear, Nose, Throat Address: [address] [place] [address], [address] Email: [email or web address] DETECTIVE YOUTH BUREAU Dysphagia Treatment DETECTIVE YOU[employer] BUREAU Dysphagia Treatment Start: 08/26/20 09:25 Freq: Status: Active Protocol: Document 09/02/20 11:39 CHRISTIE (Rec: 09/02/20 11:45 CHRISTIE [email or web address]) Dysphagia Treatment Session Time Visit Start Time 09:30 Visit Stop Time 10:15 Total Visit Minutes 45 Visit Information Visit Number 07/26 Plan of Care Dates 08/26/20 - 11/23/20 Insurance Information Medicare Setting Assessment Location Outpatient Care Visit Type Note Type Treatment Note Next Note Type Next Note Type Treatment Note Patient Information Identification Type Name,ID Card Subjective Observations The pt arrived on time and reported significant improvement in swallow using super-supraglottic swallow maneuver. Treatment Additional Dysphagia Treatment No oral trials administered Strategies today. Treatment Activities Educated and trained pt in exercises to improve swallow function/safety, including Ramandeep, base and back of tongue, Denise, intra-oral pressure, and CTAR. With oral and written instructions and demonstration, the pt was able to perform all exercises as instructed; mod initial difficulty with Denise and CTAR but improved to targeted performance with further instruction. Assessment Patient Response to Treatment Good Rehab Potential Good Assessment of Improvement The pt reports improved ease and safety of swallow with Super-supraglottic maneuver. She demonstrated excellent understanding and ability to perform all exercises with good awareness, questions, and modifications as needed. Diet Recommendations Recommendations Continue Current Diet Liquids Order Thin Diet Order Regular Medication Recommendations As Tolerated Comments with use of super-supraglottic swallow maneuver; otherwise, NTL recommended Aspiration Precautions Recommended Precautions Upright at 90 Degrees, Effortful Swallow,Supraglottic Swallow Treatment Plan Appropriate for Continued Therapy Yes Therapy Recommendations Ongoing assessment, education and training of safe swallow strategies and exercises. Dysphagia Goals 1. The pt will complete exercises to increase strength , coordination and ROM of swallow musculature to improve oral containment and reduce aspiration. 2. The pt will use compensatory strategies with min cues to improve oral containment and airway protection during oral intake. 3. The pt will independently perform HEP tasks as prescribed to improve swallow function and safety. 4. The pt will tolerate thin liquids and regular texture without aspiration, as measured by MBSS following course of dysphagia therapy. Follow Up Plan Continue POC
--- NOTE | 2020-09-30 11:34 | ST.IPDYTX ---
Visit Care Team Role Provider Type Saad Boucher MD Family Provider Physician Primary Care Provider Specialty: Internal Medicine Address: [address] [place] [address], Suite [facility], [place], [address] Email: [email or web address] Dmitriy Hudson MD Attending Provider Physician Referring Provider Specialty: Ear, Nose, Throat Address: [address] [place] [address], [address] Email: [email or web address] APPRENTICE PLANT ATTENDANT Dysphagia Treatment APPRENTICE PLANT ATTENDANT Dysphagia Treatment Start: 08/26/20 09:25 Freq: Status: Active Protocol: Document 09/30/20 11:26 CHRISTIE (Rec: 09/30/20 11:34 CHIRSTIE [email or web address]) Dysphagia Treatment Session Time Visit Start Time 09:30 Visit Stop Time 10:15 Total Visit Minutes 45 Visit Information Visit Number 08/26 Plan of Care Dates 08/26/20 - 11/23/20 Insurance Information Medicare Setting Assessment Location Outpatient Care Visit Type Note Type Treatment Note Next Note Type Next Note Type Treatment Note Patient Information Identification Type Name,ID Card Subjective Observations The pt arrived on time and reported significant improvement in swallow by intentionally keeping back of tongue elevated prior to swallow and swallowing with tongue pressed into front teeth. Treatment Liquids Trialed Thin Oral Strategies Upright at 90 degrees Pharyngeal Strategies Sitting Upright (90 deg), Effortful Swallow,Small Bites and Sips Additional Dysphagia Treatment Back of tongue elevated during Strategies oral prep phase Treatment Activities The pt tolerated single sips of thin liquid with no overt s /sx of aspiration or discomfort. Continued training of exercises with clarification and answers to pt's questions. Pt was having difficulty breathing through CTAR exercise. Trained her in Shaker, which was easier for her. She was able to hold head up for 15 sec and completed 8 lift/lower reps. She does have some back issues so was instructed to bend her legs while lying down and to d/c the exercise if she felt any pain or discomfort in her back . She verbalized agreement. With demonstration and instruction including animated video of swallow function, the pt was able to achieve Denise maneuver. Discussed POC. Will f/u in 2 wks. Assessment Patient Response to Treatment Excellent Rehab Potential Excellent Assessment of Improvement The pt reports improved swallow safety unless she is distracted. She benefits from mindfulness, keeping back of tongue elevated during oral prep phase, and from increasing base of tongue strength by pressing tongue tip into front teeth with swallow. She asked good questions, all of which were answered. Able to complete all exercises as instructed with exception of CTAR, which was eliminated and Shaker added. Pt will discontinue Shaker if any pain or discomfort is felt in her shoulders or back. Diet Recommendations Recommendations Continue Current Diet Liquids Order Thin Diet Order Regular Medication Recommendations As Tolerated Additional Dietary Needs Single Sips Aspiration Precautions Recommended Precautions Upright at 90 Degrees, Effortful Swallow,Supraglottic Swallow Treatment Plan Appropriate for Continued Therapy Yes Therapy Recommendations Ongoing assessment, education and training of safe swallow strategies and exercises. Dysphagia Goals 1. The pt will complete exercises to increase strength , coordination and ROM of swallow musculature to improve oral containment and reduce aspiration. 2. The pt will use compensatory strategies with min cues to improve oral containment and airway protection during oral intake. 3. The pt will independently perform HEP tasks as prescribed to improve swallow function and safety. 4. The pt will tolerate thin liquids and regular texture without aspiration, as measured by MBSS following course of dysphagia therapy. Follow Up Plan Continue POC
--- NOTE | 2020-10-14 18:01 | ST.IPDYTX ---
Visit Care Team Role Provider Type Saad Boucher MD Family Provider Physician Primary Care Provider Specialty: Internal Medicine Address: [address] [place] [address], [address], [place], [address] Email: [email or web address] Dmitriy Hudson MD Attending Provider Physician Referring Provider Specialty: Ear, Nose, Throat Address: [address] [place] [address] [place], [address] Email: [email or web address] ROOF TRUSS MACHINE TENDER Dysphagia Treatment ROOF TRUSS MACHINE TENDER Dysphagia Treatment Start: 08/26/20 09:25 Freq: Status: Active Protocol: Document 10/14/20 14:23 CHRISTIE (Rec: 10/14/20 14:31 CHRISTIE [email or web address]) Dysphagia Treatment Session Time Visit Start Time 13:30 Visit Stop Time 14:15 Total Visit Minutes 45 Visit Information Visit Number 09/23 Plan of Care Dates 08/26/20 - 11/23/20 Insurance Information Medicare Setting Assessment Location Outpatient Care Visit Type Note Type Treatment Note Next Note Type Next Note Type Treatment Note Patient Information Identification Type Name,ID Card Subjective Observations The pt arrived on time and reported significant improvement in swallow, but occ sticking sensation at base of throat/upper esophagus with swallow of foods such as breads. Pt questioned if thyroid nodules could be cause or contributing. Pt also will have biopsy on Monday () of 3 of the 6 thyroid nodules that she has. She reported feeling stress from a busy schedule with many medical appts, recent of her mother, and family responsibilities. Treatment Liquids Trialed Thin Oral Strategies Upright at 90 degrees Pharyngeal Strategies Sitting Upright (90 deg),Turn Head Left,Turn Head Right, Effortful Swallow,Small Bites and Sips Additional Dysphagia Treatment Liquids after solids Strategies Treatment Activities Answered pt's questions related to potential impact of thyroid nodules on swallow and sticking sensation to best of my ability within scope of practice. Reviewed MBSS video with pt and observed slowed esophageal clearance in a/p viewing. Skilled feedback provided RE common referred esophageal sensation to pharynx. Pt endorsed feeling sticking sensation in esophagus at times. Recommended strategies: small bites/sips chewed well and with liquid wash to aid esophageal clearance. Administered oral trials of thin liquid from cup, diced peaches and string cheese. The pt reported sticking sensation near level of vocal nodules. Trialed postural changes including head turns to left and right. The pt reported feeling a difference in swallow with postural changes, with head turn to right (away from nodules) being more effective in preventing and/or clearing sticking sensation, particularly when combined with liquid wash. Discussed POC. The pt requested a break from therapy to address other medical and personal issues happening now. Agreed to f/u in 5 wks pending findings from vocal nodule biopsies. Assessment Patient Response to Treatment Excellent Rehab Potential Excellent Assessment of Improvement The pt continues to make excellent progress toward goals. Swallow is at or near normal function with exception of sticking sensation at throat and esophagus. A/P viewing of swallow during MBS revealed slowed esophageal clearance, which may account for the pt's sensations. Question if vocal nodules may be impinging on pharynx and/or esophagus and contributing as well. The pt may benefit from GI consultation for further evaluation of esophageal function. Will discuss with pt at next visit after nodule biopsies are complete and findings known. Diet Recommendations Recommendations Continue Current Diet Liquids Order Thin Diet Order Regular Medication Recommendations As Tolerated Additional Dietary Needs Single Sips Aspiration Precautions Recommended Precautions Upright at 90 Degrees, Effortful Swallow,Supraglottic Swallow Treatment Plan Appropriate for Continued Therapy Yes Therapy Recommendations Ongoing assessment, education and training of safe swallow strategies and exercises. Dysphagia Goals 1. The pt will complete exercises to increase strength , coordination and ROM of swallow musculature to improve oral containment and reduce aspiration. 2. The pt will use compensatory strategies with min cues to improve oral containment and airway protection during oral intake. 3. The pt will independently perform HEP tasks as prescribed to improve swallow function and safety. 4. The pt will tolerate thin liquids and regular texture without aspiration, as measured by MBSS following course of dysphagia therapy. Follow Up Plan Continue POC
--- NOTE | 2021-03-08 09:10 | ST.IPDYTX ---
Visit Care Team Role Provider Type Saad Boucher MD Family Provider Physician Primary Care Provider Specialty: Internal Medicine Address: [address] [place] [address], [address], [place], [address] Email: [email or web address] Dmitriy Hudson MD Attending Provider Physician Referring Provider Specialty: Ear, Nose, Throat Address: [address] [place] [address], [address] Email: [email or web address] [employer] Dysphagia Treatment [employer] SU[employer] Dysphagia Treatment Start: 08/26/20 09:25 Freq: Status: Active Protocol: Document 03/08/21 09:08 CHRISTIE (Rec: 03/08/21 09:10 CHRISTIE [id number]) Dysphagia Treatment Visit Information Plan of Care Dates 08/26/20 - 11/23/20 Insurance Information Medicare Visit Type Note Type Discharge Summary Patient Information Subjective Observations Pt was last seen 10/14/20. At that time she requested a break from therapy to address other medical and personal issues happening now. Agreed to f/u in 5 wks pending findings from vocal nodule biopsies. Pt has not rescheduled more appts and is now discharged from skilled intervention. Treatment Plan Therapy Recommendations Discharge from Speech Therapy
== END 2021-03-08 13:18 | disposition home or self-care (01) ==
LOC: SP 13:30
PROVIDERS: Family Provider Student in an Organized Health Care Education/Training Program; PCP Student in an Organized Health Care Education/Training Program; Referring Provider Otolaryngology; Visit Provider Otolaryngology
DX: R13.10 Dysphagia, unspecified (principal)
CPT/HCPCS: 92526; 92610

== ENCOUNTER → 2020-10-16 14:43 | Outpatient (CLI) | payer MEDICARE, OTHER, SELFPAY ==
--- NOTE | 2020-10-16 | PATH_ITS ---
Note [facility] Accession Number: [id number] TESTS RESULT FLAG UNITS REF RANGE LAB LEFT THYROID SUPERIOR/MID NODULE #3 DIAGNOSIS: 02 LEFT THYROID SUPERIOR/MID NODULE #3 INCONCLUSIVE. BETHESDA CATEGORY III. ATYPIA OF UNDETERMINED SIGNIFICANCE. MOLECULAR TESTING IS REQUESTED; RESULTS WILL BE REPORTED AN ADDENDUM. PLEASE SEE COMMENT. COMMENT: The specimen is somewhat sparsely cellular, but the aspirated cells are almost exclusively Hurthle cells in a background of colloid and macrophages. There is focal cytologic atypia. Molecular testing is requested; results will be reported as an addendum. Pathologist ICD10: 02 R89.6 01 FNA OF NODULES #1,#3,#4 ON /S THYROID 07/13/20 CYTOLOGY FOR MALIGNANCY 02 The reason for the addendum is to report ThyGeNEXT (thyroid oncogene panel) and ThyraMIR (thyroid microRNA director nurses' registry) results. . Thyroid, left, superior mid nodule #3, fine needle aspiration: . ThyGeNEXT oncogene panel: No mutations detected. ThyraMIR microRNA director nurses' registry: Negative, Level 1. . Molecular test result interpretation: Very low risk of malignancy. . 11/13/2020 Addendum Electronically Signed by Viktoriya Raymundo MD, Pathologist 02 Viktoriya Raymundo MD, Pathologist NPI- [id number] Eleuterio Dotson, Firefighter [employer] ([facility]) 01 30 CC, RED, CLEAR RECIEVED: IN CYTOLYT WITH 5 ALCOHOL FIXED AND 5 QUICK STAINED SLIDES ALSO 1 RNA VIAL WAS RECEIVED FOR FURTHER TESTING. /[facility] 10/19/2020 0718 Local FLAG LEGEND: L-Low Normal,H-High Normal,LL-Alert Low,HH-Alert High <-Panic Low,>-Panic High,A-Abnormal,AA-Critical Abnormal Performed at: 01 =Z [facility] [address] [place] [address] Suite [facility], [place] [address] Víctor Ingram MD, 02 [facility] [address] Shazia Serrano MD, Performed at: 01 [facility] [address], [place], [place] [id number] MD Víctor Ingram MD Phone: [phone]
--- NOTE | 2020-10-16 | PATH_ITS ---
Note [facility] Accession Number: [id number] TESTS RESULT FLAG UNITS REF RANGE LAB Clinician Provided Cytology Information No. of containers..01 Other (Miscellaneous) No. of containers..00 Previously Prepared Cytology Slide 01 LEFT THYROID INFERIOR NODULE #4 DIAGNOSIS: 01 LEFT THYROID INFERIOR NODULE #4 NEGATIVE FOR MALIGNANT CELLS. BETHESDA CATEGORY II. SPECIMEN CONSISTS OF BENIGN FOLLICULAR CELLS AND COLLOID, CONSISTENT WITH A BENIGN FOLLICULAR NODULE. Pathologist ICD10: 01 E04.1 01 FNA OF NODULES #1,#3,#4 ON U/S THYROID 07/13/20 CYTOLOGY FOR MALIGNANCY 01 Aicha Montesinos MD, Pathologist NPI- [id number] Diaz Fish, School Resource Officer ([facility]) 01 30 CC, YELLOW, CLEAR RECIEVED: IN CYTOLYT WITH 5 ALCOHOL FIXED AND 5 QUICK STAINED SLIDES ALSO 1 RNA VIAL WAS RECEIVED FOR FURTHER TESTING. /[facility] 10/19/2020 0718 Local FLAG LEGEND: L-Low Normal,H-High Normal,LL-Alert Low,HH-Alert High <-Panic Low,>-Panic High,A-Abnormal,AA-Critical Abnormal Performed at: 01 =Z [facility] [address], [place] [address] Víctor Ingram MD, Performed at: 01 [facility] [address], [place], [place] [id number] MD Víctor Ingram MD Phone: [phone]
--- NOTE | 2020-10-16 | PATH_ITS ---
Note [facility] Accession Number: [id number] TESTS RESULT FLAG UNITS REF RANGE LAB Clinician Provided Cytology Information No. of containers..01 Other (Miscellaneous) No. of containers..00 Previously Prepared Cytology Slide 01 RIGHT THYROID SUPERIOR NODULE #1 DIAGNOSIS: 01 RIGHT THYROID SUPERIOR NODULE #1 INADEQUATE, INSUFFICIENT CELLS FOR STUDY. BETHESDA CATEGORY I. NONDIAGNOSTIC: VIRTUALLY ACELLULAR SPECIMEN. Pathologist ICD10: 01 E04.1 01 FNA OF NODULES #1,#3,#4 ON U/S THYROID 07/13/20 CYTOLOGY FOR MALIGNANCY 01 Aicha Montesinos MD, Pathologist NPI- [id number] Isidro Browning, Milanese Knitting Machine Operator ([facility]) 01 30 CC, RED, CLEAR RECIEVED: IN CYTOLYT WITH 5 ALCOHOL FIXED AND 5 QUICK STAINED SLIDES ALSO 1 RNA VIAL WAS RECEIVED FOR FURTHER TESTING. /VD 10/19/2020 07 Local FLAG LEGEND: L-Low Normal,H-High Normal,LL-Alert Low,HH-Alert High <-Panic Low,>-Panic High,A-Abnormal,AA-Critical Abnormal Performed at: 01 =Z [facility] [address], [place] [address] Víctor Ingram MD, Performed at: 01 [facility] [address], [place], [place] [id number] MD Víctor Ingram MD Phone: [phone]
--- NOTE | 2020-10-16 14:44 | DI.US.S_ITS ---
PROCEDURE: US FINE NEEDLE ASPIRATION INDICATIONS: FINE NEEDLE ASPIRATION NODULES: 1, 3, AND 4 TECHNIQUE: The indications, alternatives, benefits, risks, and complications of the procedure were explained to the patient. Written informed consent was obtained and placed in the chart. The thyroid region was examined sonographically and a site was chosen for ultrasound guided percutaneous sampling. The skin was prepared and draped in the usual fashion, and anesthetized with 1% lidocaine infiltrated from the skin down to the thyroid gland. Multiple passes were then performed, with contents emptied into an appropriate pathology specimen container. A bandage was applied to the area of access at completion of the study. COMPARISON: None. FINDINGS: Location(s) of lesion(s) sampled: Right upper pole (# 1), left upper/midpole (#3), left lower pole (#4) [place]: 25 gauge hypodermic needles. Number of passes: 6 into each lesion Medications: 1% lidocaine for local anaesthesia. Complications: None. IMPRESSION: Successful ultrasound-guided thyroid nodule fine needle aspiration of a right upper pole, left upper/midpole, and left lower pole nodule, with cytology results pending. Please see chart below for management recommendations based on cytology results. [facility] ReportingRecommendationsNon-diagnostic* Repeat US-guided FNA, with on-site cytology evaluation if possible. * Repeated non-diagnostic nodules without high suspicion US features: close observation vs surgical consult. * Consider surgery if nodule has high suspicion US features, grows >20% in 2 dimensions on followup, or patient has clinical risk factors for malignancy. Benign* If nodule has high suspicion US features: repeat US and FNA within 12 months. * If nodule has low to intermediate suspicion US features: repeat US at 12-24 months. If nodule grows (20% increase in at least 2 dimensions, with minimal increase of 2 mm or >50% change in volume), or development of new suspicious US features, then repeat FNA or continue followup. * If nodule has very low suspicion US features: followup US at >24 months. Atypia of undetermined significance, follicular lesion of undetermined significanceRepeat FNA, molecular testing, followup US, or surgical consult.Follicular neoplasm, suspicious for follicular neoplasmSurgical consult; also consider molecular testing. Suspicious for malignancySurgical consult.MalignantSurgical consult. Dictated by: Terrence Peters M.D. on 10/20/2020 at 9:21 Approved by: Terrence Peters M.D. on 10/20/2020 at 9:23
[2020-11-02 13:39] LABS: Miscellaneous to LabCorp SEE SEPERATE REPORT
== END ==
PROVIDERS: Pathology Anatomic Pathology & Clinical Pathology; Family Provider Student in an Organized Health Care Education/Training Program; PCP Student in an Organized Health Care Education/Training Program; Referring Provider Student in an Organized Health Care Education/Training Program; Visit Provider Student in an Organized Health Care Education/Training Program
DX: E04.1 Nontoxic single thyroid nodule (principal)
CPT/HCPCS: 0018U; 10005; 81445

== ENCOUNTER 2021-03-10 03:21 | Emergency (ER) | payer MEDICARE, OTHER, SELFPAY ==
[2021-03-10 03:25] VITALS: BP 144/64; PULSE 89; RESP 16; TEMP 36.3; O2SAT 96; BMI 28.3
--- NOTE | 2021-03-10 03:39 | ED_ITS ---
HPI - Fall General Chief Complaint: Fall Stated Complaint: fall at home, legs/feet/ankle pain Time Seen by Provider: 03/10/21 03:39 Source: patient and family Mode of arrival: Ambulatory History of Present Illness HPI Narrative: Patient is a 75-year-old female with history of hypertension, chronic kidney disease on hemodialysis, neuralgia presenting today with bilateral foot and ankle pain. She says after sitting on the couch for about an hour and a half which is what she typically does with her feet hanging down she got up to walk and her legs gave out from under her. She tripped on her feet her right 2nd toe is now have contusion. She says both legs are now swollen which they typically are not and they were not swollen prior to her fall. She denies any chest pain or palpitations no shortness of breath or fever. She has never had had this happen to her before. She does say sometimes her legs swell but resolves with dialysis or dialysis usually prevents swelling in her legs. She is due to go to dialysis at 4:30 a.m. this morning which she does every Monday to have an extra long session she is trying to go on vacation. She just wants to know she has any broken bones. She denies hitting her head or having any loss of consciousness. Related Data Home Medications Medication Instructions Recorded Confirmed omega 9-exa-tdy-fish oil 1,000 mg 1,000 mg PO QDAY #0 02/14/17 03/01/21 (120 mg-180 mg) capsule (Fish Oil) cdueysugbn-sdjsweumhwpyw-mrwhheii 1 cap PO PRN PRN 08/14/19 03/01/21 50 mg-325 mg-40 mg capsule losartan 50 mg tablet 50 mg PO DAILY 08/28/19 03/01/21 carvedilol 12.5 mg tablet 25 mg PO BID tab 06/10/20 03/01/21 ondansetron HCl 8 mg tablet 8 mg PO Q12H 09/09/20 03/01/21 Previous Rx's Medication Instructions Recorded nitroglycerin 0.4 mg sublingual 0.4 mg SL Q5-15M PRN #25 tab 01/30/19 tablet furosemide 40 mg tablet 40 mg PO DAILY #90 tab 06/10/20 ipratropium bromide 42 mcg (0.06 2 spray NASAL TID #15 ml 06/10/20 %) nasal spray albuterol sulfate 90 mcg/actuation 1 inh INHALATION Q4-6H PRN #18 gram 08/11/20 aerosol inhaler nifedipine 30 mg tablet,extended 30 mg PO DAILY #1 tab 09/09/20 release pravastatin 20 mg tablet 20 mg PO HS #90 tab 11/11/20 morphine 15 mg immediate release 15 mg PO DAILY PRN #30 tab 02/17/21 tablet morphine 30 mg tablet,extended 30 mg PO DAILY PRN #30 tab 02/17/21 release Allergies Allergy/AdvReac Type Severity Reaction Status Date / Time acetaminophen [From VICODIN] Allergy Severe nose Verified 03/01/21 09:05 bleed, GI upset amitriptyline [AMITRIPTYLINE] Allergy Severe SKIN PEELS Verified 03/01/21 09:05 amlodipine [From NORVASC] Allergy Severe Kidney Verified 03/01/21 09:05 Function aspartame [ASPARTAME] Allergy Severe Kidney Verified 03/01/21 09:05 function brinzolamide [BRINZOLAMIDE] Allergy Severe Eye Verified 03/01/21 09:05 Swelling cetirizine [From ZYRTEC] Allergy Severe Blister Verified 03/01/21 09:05 Rash chlorthalidone Allergy Severe dizziness, Verified 03/01/21 09:05 [CHLORTHALIDONE] skin crawling codeine [CODEINE] Allergy Severe Skin Rash Verified 03/01/21 09:05 duloxetine [DULOXETINE] Allergy Severe Flu Verified 03/01/21 09:05 Symptoms hydrocodone [From VICODIN] Allergy Severe Fever, Rash Verified 03/01/21 09:05 iodine [IODINE] Allergy Severe Hives Verified 03/01/21 09:05 iron [From Venofer] Allergy Severe TROUBLE Verified 03/01/21 09:05 BREATHING lisinopril [LISINOPRIL] Allergy Severe Rash, Verified 03/01/21 09:05 Hives nortriptyline [NORTRIPTYLINE] Allergy Severe Rash, Verified 03/01/21 09:05 Blisters oxycodone [OXYCODONE] Allergy Severe Rash Verified 03/01/21 09:05 oxymorphone [OXYMORPHONE] Allergy Severe Flu Verified 03/01/21 09:05 symptoms, GI upset Penicillins Allergy Severe Rash Verified 03/01/21 09:05 pregabalin [PREGABALIN] Allergy Severe Kidney Verified 03/01/21 09:05 Function ramipril [From ALTACE] Allergy Severe GI Upset Verified 03/01/21 09:05 tetracycline [TETRACYCLINE] Allergy Severe Rash, Verified 03/01/21 09:05 Hospitilization felodipine [FELODIPINE] Allergy Intermediate Rash Verified 03/01/21 09:05 hydroxyzine [HYDROXYZINE] Allergy Intermediate dizziness, Verified 03/01/21 09:05 itching sodium ferric gluconate Allergy TROUBLE Verified 03/01/21 09:05 complex BREATHING [From Ferrlecit] sucrose [From Ferrlecit] Allergy TROUBLE Verified 03/01/21 09:05 BREATHING atorvastatin [ATORVASTATIN] AdvReac Severe cramps Verified 03/01/21 09:05 enalapril [ENALAPRIL] AdvReac Severe Depression Verified 03/01/21 09:05 ibuprofen [IBUPROFEN] AdvReac Severe Kidney Verified 03/01/21 09:05 Function Latex, Natural Rubber AdvReac Severe Rash Verified 03/01/21 09:05 [LATEX, NATURAL RUBBER] meclizine [MECLIZINE] AdvReac Severe Swelling, Verified 03/01/21 09:05 Rash meperidine [From DEMEROL] AdvReac Severe Kidney Verified 03/01/21 09:05 Function metoprolol [METOPROLOL] AdvReac Severe Loss of Verified 03/01/21 09:05 hair propranolol [PROPRANOLOL] AdvReac Severe Depression Verified 03/01/21 09:05 topiramate [TOPIRAMATE] AdvReac Severe [place] Verified 03/01/21 09:05 buzzing and voices Review of Systems Review of Systems Narrative: GENERAL: Denies chills, fatigue, malaise, fever, sweats, travel HEENT: Denies sinus pain, ear pain, sore throat, difficulty swallowing, neck pain RESPIRATORY: Denies dyspnea, cough, wheezing, hemoptysis, sputum. CARDIOVASCULAR: Denies chest pain, palpitations, orthopnea, edema GASTROINTESTINAL: Denies nausea, vomiting, abdominal pain, diarrhea, constipation, melena. : Denies dysuria, frequency, incontinence, hematuria, urinary retention, flank pain. MUSCULOSKELETAL: Bilateral lower extremity pain and edema see HPI SKIN: No rash, no erythema, no pruritus NEUROLOGIC: Denies weakness, dizziness, headache, numbness, change in speech, confusion PSYCHIATRIC: No concerning psychosocial issues. 12 point review of systems is negative except for those stated above and HPI Patient History Medical History (Updated 03/10/21 @ 04:45 by Genny Lares DO) Back problem Hyperlipemia (Unknown) Hypertension (Unknown) Kidney disease Leg fracture, left (~10/2015) Menopause Neuralgia and neuritis Osteoarthritis (Unknown) Surgical History (Updated 08/08/18 @ 21:33 by Karla Nichols) History of appendectomy (~1959) History of hysterectomy (~1987) History of laminectomy (~1987) History of tonsillectomy History of tonsillectomy (~1961) Status post appendectomy Status post hysterectomy Status post laminectomy Family History Mother Age: 93 Cervical cancer Brother Diabetes mellitus Sister Diabetes mellitus Grandfather Cancer Grandmother No problems noted. Social History household members: spouse Smoking Status: Former smoker alcohol intake: never substance use type: does not use Smoking Status: Former smoker Substance Use Type: does not use Exam Initial Vital Signs Initial Vital Signs: Vital Signs Temperature 97.4 F L 03/10/21 03:25 Pulse Rate 89 03/10/21 03:25 Respiratory Rate 16 03/10/21 03:25 Blood Pressure 144/64 H 03/10/21 03:25 Pulse Oximetry 96 03/10/21 03:25 GENERAL: Alert well-appearing 75-year-old female and in no acute distress. HEENT: Head atraumatic,EOMI, pupils reactive, face symmetric, moist mucous membranes CARDIOVASCULAR: Regular rate and rhythm without murmurs, rubs or gallops. RESPIRATORY: Breath sounds equal bilaterally, no wheezes rales or rhonchi. ABDOMEN: Soft, nontender. Normoactive bowel sounds all 4 quadrants. No guarding or rebound. EXTREMITIES: Bilateral lower extremity and edema non pitting. Right lower extremity contusion 2nd toe foot is stable ankle stable non tender on malleoli distal pedal pulse present. Left lower extremity swelling nonpitting edema no bony deformity no tender and malleoli foot stable distal pedal pulse intact NEUROLOGICAL: Alert and oriented x4.Normal gait and speech. SKIN: Warm, dry, no laceration, no petechiae, no rashes or lesions. Course Orders Ordered: ED Orders 03/10/21 03:47 XR ankle LT min 3V Stat XR ankle RT min 3V Stat XR foot LT min 3V Stat XR foot RT min 3V Stat Vital Signs Vital signs: Vital Signs - 8 hr 03/10/21 03:25 03/10/21 04:50 Temperature 97.4 F L Pulse Rate 89 82 Respiratory Rate 16 17 Blood Pressure 144/64 H 144/66 H Pulse Oximetry 96 97 MDM - Fall Imaging Data Extremity x-ray #1: Radiologist's Impression: Left foot: No acute bony abnormality Extremity x-ray #2: Radiologist's Impression: Right foot: Suspected nondisplaced fracture distal shaft of the proximal phalanx of 2nd digit. Clinically correlate for point tenderness Extremity x-ray #3: My Impression: Right ankle: No acute acute bony abnormality Radiologist's Impression: Preliminary report soft tissue swelling without bony abnormality Extremity 4.: Radiologist's Impression: Preliminary report: Left ankle No acute bony abnormality MDM Narrative Medical decision making narrative: The patient is found to have rate 2nd phalanx fracture. That is the area of contusion suspect suspect that there is fracture. She has bilateral lower extremity edema. Patient denies any shortness of breath or chest pain. She is headed to dialysis where they will do blood work. He is given orthopedic shoe for support. Discussed with her warning signs when to return to emergency department. At this time she is quite anxious to leave in get to dialysis. Discharge Plan Departure Patient Disposition: Home Clinical Impression: Fracture of second toe, right, closed Qualifiers: Encounter type: initial encounter Qualified Code(s): S92.501A - Displaced unspecified fracture of right lesser toe(s), initial encounter for closed fracture Ankle sprain Qualifiers: Encounter type: initial encounter Involved ligament of ankle: unspecified ligament Laterality: unspecified laterality Qualified Code(s): S93.409A - Sprain of unspecified ligament of unspecified ankle, initial encounter Instructions: Toe Fracture, Ankle Sprain Activity Restrictions/Additional Instructions: *You have been diagnosed with right 2nd toe fracture and bilateral ankle sprains *What to do: At this time he did break your toe this evening. Please wear orthopedic shoe for support during the daytime. He may take this off at night to sleep. 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 Increase activity as tolerated. May need crutches if you are unable to ambulate. Elevate and ice 20-30 minutes at a time. *Continue to take medications as directed Tylenol 650 mg every 4-6 hours if needed for rgva-ra-sujjgjix pain *Follow up with your primary care provider in 2-3 days *Return to ER if you should have increasing pain, swelling, chest pain, shortness of breath or any new, worsening or concerning symptoms Prescriptions: No Action omega 9-jvi-qpg-fish oil [Fish Oil] 1,000 MG capsule 1,000 mg PO QDAY Qty: 0 RF: 0 albuterol sulfate 90 mcg/actuation HFA aerosol inhaler 1 inh INHALATION Q4-6H PRN (Reason: shortness of breath) Qty: 18 RF: 11 pravastatin 20 mg tablet 20 mg PO HS Qty: 90 RF: 3 morphine 15 mg tablet 15 mg PO DAILY PRN (Reason: pain) Qty: 30 RF: 0 morphine 30 mg tablet extended release 30 mg PO DAILY PRN (Reason: pain) Qty: 30 RF: 0 ondansetron HCl 8 mg tablet 8 mg PO Q12H RF: 0 nifedipine 30 mg tablet extended release 30 mg PO DAILY Qty: 1 RF: 0 nitroglycerin 0.4 mg tablet, sublingual 0.4 mg SL Q5-15M PRN (Reason: chest pain) Qty: 25 RF: 5 carvedilol 12.5 mg tablet 25 mg PO BID RF: 0 furosemide 40 mg tablet 40 mg PO DAILY Qty: 90 RF: 3 ipratropium bromide 42 mcg (0.06 %) spray,non-aerosol 2 spray NASAL TID Qty: 15 RF: 5 worqcchhyi-fupwashducsfo-ugpp 50-325-40 mg Capsule 1 cap PO PRN PRN (Reason: Headache) RF: 0 losartan 50 mg Tablet 50 mg PO DAILY RF: 0 Referrals: Saad Boucher MD [Primary Care Provider] -
--- NOTE | 2021-03-10 03:47 | DI.RAD.S_ITS ---
PROCEDURE: XR FOOT LT MIN 3V INDICATIONS: fall TECHNIQUE: 3 views of the foot were acquired. COMPARISON: [facility], , FOOT 3V LEFT, 11/16/2015, 14:36. FINDINGS: Bones: There is generalized osteopenia. No acute fractures or dislocations. No suspicious bony lesions. Soft tissues: Mild soft tissue edema is seen in the hindfoot. IMPRESSION: No acute osseous abnormality. If clinical suspicion and/or symptoms persist, additional imaging with repeat plain films, or advanced imaging (e.g. CT, MRI) may be helpful for further assessment. There is no significant discrepancy when compared to the overnight Teleradiology report. Dictated by: Flavio Gonzales M.D. on 03/10/2021 at 8:39 Approved by: Flavio Gonzales M.D. on 03/10/2021 at 8:41
--- NOTE | 2021-03-10 03:47 | DI.RAD.S_ITS ---
PROCEDURE: XR ANKLE LT MIN 3V INDICATIONS: fall TECHNIQUE: 3 views of the ankle were acquired. COMPARISON: None. FINDINGS: Bones: No acute fractures or dislocations. Ankle mortise is normally aligned. No suspicious bony lesions. Soft tissues: Soft tissue edema is seen over the lateral malleolus. IMPRESSION: No acute osseous abnormality. If clinical suspicion and/or symptoms persist, additional imaging with repeat plain films, or advanced imaging (e.g. CT, MRI) may be helpful for further assessment. There is no significant discrepancy when compared to the overnight Teleradiology report. Dictated by: Flavio Gonzales M.D. on 03/10/2021 at 8:32 Approved by: Flavio Gonzales M.D. on 03/10/2021 at 8:33
--- NOTE | 2021-03-10 03:47 | DI.RAD.S_ITS ---
PROCEDURE: XR FOOT RT MIN 3V INDICATIONS: fall TECHNIQUE: 3 views of the foot were acquired. COMPARISON: [facility], , FOOT 3V LEFT, 11/16/2015, 14:36. FINDINGS: Bones: There is generalized osteopenia. A suspected minimally displaced fracture is seen at the distal shaft of the 2nd proximal phalanx, best seen on AP view. Soft tissues: Soft tissue edema is seen in the forefoot. IMPRESSION: Suspected minimally displaced fracture of the 2nd proximal phalangeal shaft. There is no significant discrepancy when compared to the overnight Teleradiology report. Dictated by: Flavio Gonzales M.D. on 03/10/2021 at 8:43 Approved by: Flavio Gonzales M.D. on 03/10/2021 at 8:45
--- NOTE | 2021-03-10 03:47 | DI.RAD.S_ITS ---
PROCEDURE: XR ANKLE RT MIN 3V INDICATIONS: fall TECHNIQUE: 3 views of the ankle were acquired. COMPARISON: None. FINDINGS: Bones: No acute fractures or dislocations. Ankle mortise is normally aligned. No suspicious bony lesions. Soft tissues: There is soft tissue edema surrounding the ankle that is more prominent laterally and anteriorly. IMPRESSION: No acute osseous abnormality. If clinical suspicion and/or symptoms persist, additional imaging with repeat plain films, or advanced imaging (e.g. CT, MRI) may be helpful for further assessment. There is no significant discrepancy when compared to the overnight Teleradiology report. Dictated by: Flavio Gonzales M.D. on 03/10/2021 at 8:41 Approved by: Flavio Gonzales M.D. on 03/10/2021 at 8:43
[2021-03-10 04:50] VITALS: BP 144/66; PULSE 82; RESP 17; O2SAT 97
== END 2021-03-10 04:51 | disposition home or self-care (01) ==
PROVIDERS: Emergency Provider Emergency Medicine; Family Provider Student in an Organized Health Care Education/Training Program; PCP Student in an Organized Health Care Education/Training Program
DX: S92.501A Displaced unspecified fracture of right lesser toe(s), initial encounter for closed fracture (principal); S93.409A Sprain of unspecified ligament of unspecified ankle, initial encounter; W19.XXXA Unspecified fall, initial encounter
CPT/HCPCS: 73610; 73630; 99283

== ENCOUNTER → 2021-07-13 12:56 | Outpatient (CLI) | payer MEDICARE, OTHER, SELFPAY ==
--- NOTE | 2021-07-13 | DI.MG.S_ITS ---
BILATERAL DIGITAL SCREENING MAMMOGRAM 3D/2D WITH CAD: 07/13/2021 CLINICAL: Routine screening. Baseline. No prior exams were available for comparison. The tissue of both breasts is heterogeneously dense. This may lower the sensitivity of mammography. Current study was also evaluated with a Computer Aided Detection (CAD) system. No significant masses, calcifications, or other findings are seen in either breast. IMPRESSION: NEGATIVE There is no mammographic evidence of malignancy. A 1 year screening mammogram is recommended. This exam was interpreted at Station ID: [id number]. NOTE: For mammograms, a report in lay terms will be sent to the patient. Approximately 15% of breast malignancies will not be visualized mammographically. In the management of a palpable breast mass, a negative mammogram must not discourage biopsy of a clinically suspicious lesion. Electronically Signed By: Flavio morris/noemy:07/13/2021 13:51:09 letter sent: Normal Exam ACR BI-RADS Category 1: Negative [id number]
== END ==
PROVIDERS: Family Provider Student in an Organized Health Care Education/Training Program; PCP Student in an Organized Health Care Education/Training Program; Referring Provider Student in an Organized Health Care Education/Training Program; Visit Provider Student in an Organized Health Care Education/Training Program
DX: Z12.31 Encounter for screening mammogram for malignant neoplasm of breast (principal)
CPT/HCPCS: 77063; 77067

== ENCOUNTER 2021-09-21 07:32 | Day surgery (SDC) | payer MEDICARE, OTHER, SELFPAY ==
--- NOTE | 2021-09-21 | PATH_ITS ---
[facility] Accession Number: [id number] No. of containers..04 Tissue . 01 Material submitted: . PART A: duodenum - DUODENUM PART B: stomach - ANTRUM PART C: gastrointestinal site - GASTRIC POLYP PART D: rectum - RECTAL POLYP . 02 Diagnosis: A. Duodenum, Biopsy: Duodenal mucosa with no diagnostic abnormality. Negative for active inflammation, features of sprue, dysplasia, or malignancy. . B. Stomach, Antrum, Biopsy: Antral mucosa with mild chronic gastritis. Negative for Helicobacter by immunohistochemistry. Negative for intestinal metaplasia. Negative for dysplasia and malignancy. . C. Stomach, Polyp, Biopsy: Fundic gland polyp. No evidence of Helicobacter on H/E stain. Negative for intestinal metaplasia. Negative for dysplasia and malignancy. . D. Rectum, Polyp, Biopsy: Hyperplastic polyp. [facility] 09/24/2021 1614 Local . 02 Electronically signed: . Shazia Serrano MD, Pathologist NPI- [id number] . 01 Gross description: . Part A: DUODENUM: Received in formalin are 2 fragment(s) of olivares, soft tissue measuring 0.1 x 0.1 x 00.1 cm to 0.3 x 0.3 x 0.2 cm submitted entirely in 1 cassette(s) Part B: ANTRUM: Received in formalin are 4 fragment(s) of olivares, soft tissue measuring 0.1 x 0.1 x 0.1 cm to 0.3 x 0.3 x 0.2 cm submitted entirely in 1 cassette(s) Part C: GASTRIC POLYP: Received in formalin are 3 fragment(s) of olivares, soft tissue measuring 0.1 x 0.1 x 0.1 cm to 0.3 x 0.2 x 0.2 cm submitted entirely in 1 cassette(s) Part D: RECTAL POLYP: Received in formalin is 1 fragment(s) of olivares, soft tissue measuring 0.2 x 0.1 x 0.1 cm submitted entirely in 1 cassette(s) /ANA 09/22/[id number] Local . 02 Microscopic: . B. An immunohistochemical stain was performed to evaluate for Helicobacter organisms and is negative. The control stain showed appropriate reactivity. . * This test was developed and its performance characteristics determined [facility]. It has not been cleared or approved by the U.S. Food and Drug Administration. The FDA has determined that such clearance or approval is not necessary. This test is used for clinical purposes. It should not be regarded as investigational or for research. . 02 Pathologist provided ICD-10: K62.1, R13.10 . 02 CPT . 356112, 225644, 306895, 688652, [id number] Specimen Comment: A courtesy copy of this report has been sent to [phone] Performed at: 01 [facility] [address] [address], [place], [place] [id number] MD Víctor Ingram MD Phone: [phone] Performed at: 02 [facility] [address] [place] [id number] MD Shazia Serrano MD Phone: [phone]
[2021-09-21] MEDS: LACTATED RINGERS 1,000 ML 84 ML IV (08:28)
[2021-09-21 08:32] VITALS: BP 152/71; PULSE 86; RESP 18; TEMP 36.2; O2SAT 97; BMI 28.3
[2021-09-21 08:33] LABS: COVID19 -Nasal RAPID Negative (Negative)
--- NOTE | 2021-09-21 08:58 | PM.HP.1 ---
History of Present Illness History of Present Illness Date Patient Seen: 09/21/21 Time Patient Seen: 08:58 Chief complaint: SDC Narrative: Keturah is a 75-year-old woman who is due for colonoscopy. She believes her last colonoscopy was [address] Gomes. She has renal failure and is trying to get on the transplant waiting list. She also has dysphagia. She takes daily morphine. Patient History Medical History Back problem Hyperlipemia (Unknown) Hypertension (Unknown) Kidney disease Leg fracture, left (~10/2015) Menopause Neuralgia and neuritis Osteoarthritis (Unknown) Surgical History History of appendectomy (~1959) History of hysterectomy (~1987) History of laminectomy (~1987) History of tonsillectomy History of tonsillectomy (~1961) Status post appendectomy Status post hysterectomy Status post laminectomy Family & Social History Family History Mother Age: 94 Cervical cancer Brother Diabetes mellitus Sister Diabetes mellitus Grandfather Cancer Grandmother No problems noted. Social History: household members spouse Tobacco & Substance use: Smoking Status Former smoker alcohol intake never alcohol intake frequency holiday/special occasion Substance Use Type does not use Meds Home Medications and Allergies Home Medications Medication Instructions Recorded Confirmed Type omega 8-stw-gvy-fish oil 1,000 mg 1,000 mg PO QDAY #0 02/14/17 09/09/21 History (120 mg-180 mg) capsule (Fish Oil) [id number]-[id number]-droaxixa 1 cap PO PRN PRN 08/14/19 09/21/21 History 50 mg-325 mg-40 mg capsule losartan 50 mg tablet 50 mg PO DAILY 08/28/19 09/21/21 History carvedilol 12.5 mg tablet 25 mg PO BID tab 06/10/20 09/21/21 History albuterol sulfate 90 mcg/actuation 1 inh INHALATION Q4-6H PRN #18 gram 08/11/20 09/21/21 Rx aerosol inhaler nifedipine 30 mg tablet,extended 30 mg PO DAILY #1 tab 09/09/20 09/09/21 Rx release pravastatin 20 mg tablet 20 mg PO HS #90 tab 11/11/20 09/09/21 Rx nitroglycerin 0.4 mg sublingual 0.4 mg SL Q5-15M PRN #25 tab 03/23/21 09/09/21 Rx tablet ipratropium bromide 42 mcg (0.06 2 spray NASAL TID #15 ml 06/09/21 09/21/21 Rx %) nasal spray ondansetron HCl 8 mg tablet 4 mg PO Q12H tab 06/14/21 09/09/21 History furosemide 40 mg tablet 40 mg PO DAILY #90 tab 06/15/21 09/21/21 Rx morphine 15 mg immediate release 15 mg PO DAILY PRN #30 tab 09/09/21 09/09/21 Rx tablet morphine 30 mg tablet,extended 30 mg PO DAILY PRN #30 tab 09/09/21 09/09/21 Rx release Allergies Allergy/AdvReac Type Severity Reaction Status Date / Time acetaminophen [From VICODIN] Allergy Severe nose Verified 09/21/21 08:46 bleed, GI upset amitriptyline [AMITRIPTYLINE] Allergy Severe SKIN PEELS Verified 09/21/21 08:46 amlodipine [From NORVASC] Allergy Severe Kidney Verified 09/21/21 08:46 Function aspartame [ASPARTAME] Allergy Severe Kidney Verified 09/21/21 08:46 function brinzolamide [BRINZOLAMIDE] Allergy Severe Eye Verified 09/21/21 08:46 Swelling cetirizine [From ZYRTEC] Allergy Severe Blister Verified 09/21/21 08:46 Rash chlorthalidone Allergy Severe dizziness, Verified 09/21/21 08:46 [CHLORTHALIDONE] skin crawling codeine [CODEINE] Allergy Severe Skin Rash Verified 09/21/21 08:46 duloxetine [DULOXETINE] Allergy Severe Flu Verified 09/21/21 08:46 Symptoms hydrocodone [From VICODIN] Allergy Severe Fever, Rash Verified 09/21/21 08:46 iodine [IODINE] Allergy Severe Hives Verified 09/21/21 08:46 iron [From Venofer] Allergy Severe TROUBLE Verified 09/21/21 08:46 BREATHING lisinopril [LISINOPRIL] Allergy Severe Rash, Verified 09/21/21 08:46 Hives nortriptyline [NORTRIPTYLINE] Allergy Severe Rash, Verified 09/21/21 08:46 Blisters oxycodone [OXYCODONE] Allergy Severe Rash Verified 09/21/21 08:46 oxymorphone [OXYMORPHONE] Allergy Severe Flu Verified 09/21/21 08:46 symptoms, GI upset Penicillins Allergy Severe Rash Verified 09/21/21 08:46 pregabalin [PREGABALIN] Allergy Severe Kidney Verified 09/21/21 08:46 Function ramipril [From ALTACE] Allergy Severe GI Upset Verified 09/21/21 08:46 tetracycline [TETRACYCLINE] Allergy Severe Rash, Verified 09/21/21 08:46 Hospitilization felodipine [FELODIPINE] Allergy Intermediate Rash Verified 09/21/21 08:46 hydroxyzine [HYDROXYZINE] Allergy Intermediate dizziness, Verified 09/21/21 08:46 itching sodium ferric gluconate Allergy TROUBLE Verified 09/21/21 08:46 complex BREATHING [From Ferrlecit] sucrose [From Ferrlecit] Allergy TROUBLE Verified 09/21/21 08:46 BREATHING atorvastatin [ATORVASTATIN] AdvReac Severe cramps Verified 09/21/21 08:46 enalapril [ENALAPRIL] AdvReac Severe Depression Verified 09/21/21 08:46 ibuprofen [IBUPROFEN] AdvReac Severe Kidney Verified 09/21/21 08:46 Function Latex, Natural Rubber AdvReac Severe Rash Verified 09/21/21 08:46 [LATEX, NATURAL RUBBER] meclizine [MECLIZINE] AdvReac Severe Swelling, Verified 09/21/21 08:46 Rash meperidine [From DEMEROL] AdvReac Severe Kidney Verified 09/21/21 08:46 Function metoprolol [METOPROLOL] AdvReac Severe Loss of Verified 09/21/21 08:46 hair propranolol [PROPRANOLOL] AdvReac Severe Depression Verified 09/21/21 08:46 topiramate [TOPIRAMATE] AdvReac Severe [place] Verified 09/21/21 08:46 buzzing and voices Exam Vital Signs (past 8 hours): - 09/21/21 08:32 Temperature 97.2 F L Pulse Rate 86 Respiratory Rate 18 Blood Pressure 152/71 H Pulse Oximetry 97 Oxygen Delivery Method Room Air Const General: comfortable Resp Effort & Inspection: normal respiratory effort GI Palpation: soft Objective Labs Labs: Laboratory Results - last 24 hr 09/21/21 08:05 SARS-CoV-2 (PCR) Negative Assessment & Plan Assessment and plan (1) Colon cancer screening: Status: Acute Plan Plan for upper and lower endoscopy with anesthesia. COVID-19 COVID-19 status: Negative Result date/Date tested (Pos, Neg/Pending): 09/20/21 Time Spent With Patient Critical Care time: I spent a total of [] minutes of critical care time on this patient's care today; this time is exclusive of procedural time.
--- NOTE | 2021-09-21 09:52 | PM.OP.EC ---
Operative Date/Time/Diagnoses Date of procedure: 09/21/21 Time of procedure: 09:53 Pre-op diagnosis: Colon cancer screening and dysphagia Post-op diagnosis: same Procedure & Clinicians Study performed: Colonoscopy and EGD Same procedure as scheduled: Yes Indications: Colon cancer screening Surgeon: Justin Sellers Procedure Notes SCOAP/Timeout: S Procedure in detail: Procedure in detail: A timeout was performed. Bite blocked was placed. Patient was positioned in a left lateral decubitus position. Anesthesia was administered by Dr. Hannno. Once the patient was sedated the endoscope was inserted through the bite block and passed through the esophagus and stomach and into the duodenum. The duodenum appeared normal. Random biopsies were taken from duodenal mucosa with cold forceps The duodenal bulb was normal. The antrum was normal. Random biopsies were taken from the antrum with cold forceps There were few small polyps in the proximal stomach, 1 of which was biopsied with cold forceps. The scope was retroflexed in that stomach and no hiatal hernia was noted. Scope was straightened and withdrawn into the esophagus. The GE junction in the remainder of the esophagus were normal. Findings: Few small proximal stomach polyps Next we repositioned the patient for a colonoscopy. A digital rectal exam was performed and was normal. The colonoscope was inserted and advanced to the cecum. The appendiceal orifice was identified and photographed. The scope was slowly withdrawn over greater than 6 minutes. The terminal ileum was intubated and the mucosa appeared normal. There is 1 small polyp in the proximal rectum removed with cold forceps. The scope was retroflexed in the rectum and no abnormalities were noted other than internal hemorrhoids. Findings: 1 small polyp in the proximal rectum EBL: 5 mL Scope withdrawal time: Greater than 6 minutes Post-procedure Recommendations: Will call with biopsy results Disposition: PACU
[2021-09-21 09:58] VITALS: BP 132/62; PULSE 70; RESP 22; TEMP 36.4; O2SAT 97
[2021-09-21 10:02] VITALS: BP 150/66; PULSE 69; RESP 17; O2SAT 97
[2021-09-21 10:06] VITALS: BP 142/72; PULSE 70; RESP 21; O2SAT 96
[2021-09-21 10:10] VITALS: BP 146/58; PULSE 68; RESP 12; TEMP 36.7; O2SAT 98
== END 2021-09-21 10:16 | disposition home or self-care (01) ==
PROVIDERS: Family Provider Student in an Organized Health Care Education/Training Program; PCP Student in an Organized Health Care Education/Training Program; Referring Provider Surgery; Visit Provider Surgery
PROC: 0DJ08ZZ Inspection of Upper Intestinal Tract, Via Natural or Artificial Opening Endoscopic (ICD-10-PCS; CPT 43235; principal; 2021-09-21 09:00)
PROC: 0DJD8ZZ Inspection of Lower Intestinal Tract, Via Natural or Artificial Opening Endoscopic (ICD-10-PCS; CPT 45378; 2021-09-21 09:00)
DX: Z12.11 Encounter for screening for malignant neoplasm of colon (principal); R13.10 Dysphagia, unspecified; N18.6 End stage renal disease; Z99.2 Dependence on renal dialysis; Z20.822 Contact with and (suspected) exposure to COVID-19; K29.50 Unspecified chronic gastritis without bleeding; K31.7 Polyp of stomach and duodenum; K62.1 Rectal polyp
CPT/HCPCS: 45380; 43239; 87635; J2704; J3010

== ENCOUNTER → 2021-10-21 08:59 | Outpatient (CLI) | payer MEDICARE, OTHER, SELFPAY | PROVIDERS: Family Provider Student in an Organized Health Care Education/Training Program; PCP Student in an Organized Health Care Education/Training Program; Referring Provider Internal Medicine; Visit Provider Internal Medicine | DX: N18.6 End stage renal disease (principal) | CPT/HCPCS: 36415; 86900; 86901 ==

== ENCOUNTER → 2021-12-27 07:45 | Outpatient (CLI) | payer MEDICARE, OTHER, SELFPAY ==
[2021-12-27 08:37] LABS: Add Manual Diff / Slide Review NO; Basophils Absolute Auto 0 /uL (0-100); Basophils Percent Auto 0.6 % (0-2); Eosinophils Absolute Auto 100 /uL (0-450); Eosinophils Percent Auto 1.7 % (2-4); Hematocrit 30.7 % (36-46); Hemoglobin 10.3 g/dL (12.0-16.0); Lymphocytes Absolute Auto 200 /uL (1100-4500); Lymphocytes Percent Auto 4.2 % (25-40); Mean Corpuscular HGB Conc 33.4 % (30-36); Mean Corpuscular Hemoglobin 30.8 PG (26-34); Mean Corpuscular Volume 92.1 fL (80-100); Monocytes Absolute Auto 300 /uL (0-900); Monocytes Percent Auto 4.7 % (3-14); Neutrophils Absolute Auto 5100 /uL (1500-7000); Neutrophils Percent Auto 88.8 % (50-75); Platelet Count 228 X10^3/uL (150-400); Red Blood Cell Count 3.33 X10^6/uL (4.0-5.2); Red Cell Distribution Width 15.2 % (11.6-14.8); White Blood Cell Count 5.7 X10^3/uL (4.5-11.0)
[2021-12-27 09:01] LABS: Alanine Aminotransferase 22 IU/L (<35); Albumin 3.7 g/dL (3.5-5.0); Albumin Globulin Ratio 1.6 (1.0-2.8); Alkaline Phosphatase 73 U/L (38-126); Aspartate Aminotransferase 25 IU/L (14-36); BUN Creatinine Ratio 16.3 (6-22); Bilirubin Total 0.5 mg/dL (0.2-1.3); Blood Urea Nitrogen 15 mg/dL (7-17); Calcium 9.2 mg/dL (8.4-10.2); Carbon Dioxide 25 mmol/L (22-32); Chloride 106 mmol/L (98-107); Estimated Glomerular Filt Rate > 60 mL/min (>60); Globulin 2.3 g/dL (1.7-4.1); Glucose 148 mg/dL (80-110); HEMOLYSIS < 15 (0-50); Magnesium 1.2 mg/dL (1.6-2.3); Phosphorous 3.7 mg/dL (2.8-4.1); Sodium 138 mmol/L (137-145)
[2021-12-27 10:50] LABS: Potassium 4.2 mmol/L (3.4-5.1)
[2021-12-27 12:27] LABS: Appearance Urine UA CLEAR; Bilirubin Urine UA 1+ (NEGATIVE); Color Urine UA BROWN; Glucose Urine UA TRACE g/dL (Negative); Ketones Urine UA TRACE (NEGATIVE); Leukocyte Esterase Urine UA NEGATIVE (NEGATIVE); Nitrite Urine UA NEGATIVE (Negative); Occult Blood Urine UA 3+ (Negative); Protein Urine UA 3+ (Negative); Specific Gravity Urine UA 1.025 (1.000-1.035); Urobilinogen Urine UA 0.2 E.U./dL (0.2)
[2021-12-27 12:42] LABS: pH Urine UA 5.5 (4.5-8.0)
[2021-12-27 12:47] LABS: Bacteria Urine None Seen; Culture Indicated Urine Cult Not Indicated; RBC Urine >100/HPF (0-5/HPF); Renal Epithelial Cells Urine 5-10/HPF (0-1/HPF); WBC Urine None Seen (0-5/HPF)
[2021-12-27 12:49] LABS: Ictotest Urine Positive (Negative)
[2021-12-27 12:52] LABS: Creatinine Urine Random 243.5 mg/dL; Protein (Total) Urine Random 181 mg/dL (0-12); Protein Creatinine Ratio Urine 0.74 GRAM/24H
[2021-12-28 10:27] LABS: Tacrolimus 6.7 ng/mL (2.0-20.0)
== END ==
PROVIDERS: Family Provider Student in an Organized Health Care Education/Training Program; PCP Student in an Organized Health Care Education/Training Program; Referring Provider Internal Medicine Nephrology; Visit Provider Internal Medicine Nephrology
DX: Z94.0 Kidney transplant status (principal); Z48.298 Encounter for aftercare following other organ transplant; T86.90 Unspecified complication of unspecified transplanted organ and tissue; E83.40 Disorders of magnesium metabolism, unspecified
CPT/HCPCS: 36415; 80053; 80197; 81001; 82570; 83735; 84100; 84156; 85025

== ENCOUNTER → 2022-01-03 08:07 | Outpatient (CLI) | payer MEDICARE, OTHER, SELFPAY ==
[2022-01-03 09:23] LABS: Add Manual Diff / Slide Review NO; Basophils Absolute Auto 0 /uL (0-100); Basophils Percent Auto 0.6 % (0-2); Eosinophils Absolute Auto 100 /uL (0-450); Hemoglobin 9.8 g/dL (12.0-16.0); Lymphocytes Absolute Auto 200 /uL (1100-4500); Mean Corpuscular HGB Conc 33.7 % (30-36); Mean Corpuscular Hemoglobin 30.8 PG (26-34); Mean Corpuscular Volume 91.3 fL (80-100); Monocytes Absolute Auto 400 /uL (0-900); Monocytes Percent Auto 6.5 % (3-14); Neutrophils Absolute Auto 4800 /uL (1500-7000); Neutrophils Percent Auto 87.9 % (50-75); Platelet Count 291 X10^3/uL (150-400); Red Blood Cell Count 3.17 X10^6/uL (4.0-5.2); Red Cell Distribution Width 14.8 % (11.6-14.8); White Blood Cell Count 5.5 X10^3/uL (4.5-11.0)
[2022-01-03 09:31] LABS: Alanine Aminotransferase 22 IU/L (<35); Albumin 3.2 g/dL (3.5-5.0); Albumin Globulin Ratio 1.4 (1.0-2.8); Alkaline Phosphatase 69 U/L (38-126); Aspartate Aminotransferase 25 IU/L (14-36); BUN Creatinine Ratio 13.7 (6-22); Bilirubin Total 0.4 mg/dL (0.2-1.3); Blood Urea Nitrogen 13 mg/dL (7-17); Calcium 9.3 mg/dL (8.4-10.2); Carbon Dioxide 24 mmol/L (22-32); Chloride 103 mmol/L (98-107); Estimated Glomerular Filt Rate > 60 mL/min (>60); Globulin 2.3 g/dL (1.7-4.1); Glucose 159 mg/dL (80-110); HEMOLYSIS < 15 (0-50); Magnesium 1.2 mg/dL (1.6-2.3); Phosphorous 3.3 mg/dL (2.8-4.1); Sodium 135 mmol/L (137-145); Total Protein 5.5 g/dL (6.3-8.2)
[2022-01-03 13:44] LABS: Appearance Urine UA CLOUDY; Bilirubin Urine UA NEGATIVE (NEGATIVE); Color Urine UA YELLOW; Glucose Urine UA NEGATIVE (Negative); Ketones Urine UA NEGATIVE (NEGATIVE); Leukocyte Esterase Urine UA TRACE (NEGATIVE); Nitrite Urine UA NEGATIVE (Negative); Occult Blood Urine UA 3+ (Negative); Protein Urine UA 2+ (Negative); Specific Gravity Urine UA 1.015 (1.000-1.035); Urobilinogen Urine UA 0.2 E.U./dL (0.2)
[2022-01-03 13:58] LABS: Bacteria Urine Occasional (0-1); Culture Indicated Urine Specimen Cultured; RBC Urine >100/HPF (0-5/HPF); Squamous Epithelial Cell Urine None Seen (0-5/HPF); WBC Urine 1-5/HPF (0-5/HPF)
[2022-01-04 09:39] LABS: Tacrolimus 8.3 ng/mL (2.0-20.0)
== END ==
PROVIDERS: Family Provider Student in an Organized Health Care Education/Training Program; PCP Student in an Organized Health Care Education/Training Program; Referring Provider Internal Medicine Nephrology; Visit Provider Internal Medicine Nephrology
DX: Z48.298 Encounter for aftercare following other organ transplant (principal); Z94.0 Kidney transplant status; T86.90 Unspecified complication of unspecified transplanted organ and tissue; E83.40 Disorders of magnesium metabolism, unspecified; N39.0 Urinary tract infection, site not specified
CPT/HCPCS: 36415; 80053; 80197; 81001; 83735; 84100; 85025; 87086

== ENCOUNTER → 2022-01-10 07:30 | Outpatient (CLI) | payer MEDICARE, OTHER, SELFPAY ==
[2022-01-10 09:19] LABS: Add Manual Diff / Slide Review NO; Basophils Absolute Auto 0 /uL (0-100); Basophils Percent Auto 0.7 % (0-2); Eosinophils Absolute Auto 100 /uL (0-450); Eosinophils Percent Auto 1.1 % (2-4); Hematocrit 29.8 % (36-46); Hemoglobin 10.2 g/dL (12.0-16.0); Lymphocytes Absolute Auto 300 /uL (1100-4500); Lymphocytes Percent Auto 5.8 % (25-40); Mean Corpuscular HGB Conc 34.1 % (30-36); Mean Corpuscular Hemoglobin 30.4 PG (26-34); Mean Corpuscular Volume 89.3 fL (80-100); Monocytes Absolute Auto 300 /uL (0-900); Monocytes Percent Auto 5.4 % (3-14); Neutrophils Absolute Auto 4900 /uL (1500-7000); Platelet Count 305 X10^3/uL (150-400); Red Blood Cell Count 3.34 X10^6/uL (4.0-5.2); White Blood Cell Count 5.7 X10^3/uL (4.5-11.0)
[2022-01-10 09:49] LABS: Alanine Aminotransferase 20 IU/L (<35); Albumin 3.3 g/dL (3.5-5.0); Albumin Globulin Ratio 1.4 (1.0-2.8); Alkaline Phosphatase 67 U/L (38-126); Aspartate Aminotransferase 23 IU/L (14-36); BUN Creatinine Ratio 16.5 (6-22); Bilirubin Total 0.3 mg/dL (0.2-1.3); Blood Urea Nitrogen 14 mg/dL (7-17); Calcium 9.1 mg/dL (8.4-10.2); Carbon Dioxide 25 mmol/L (22-32); Chloride 105 mmol/L (98-107); Estimated Glomerular Filt Rate > 60 mL/min (>60); Globulin 2.3 g/dL (1.7-4.1); Glucose 148 mg/dL (80-110); HEMOLYSIS < 15 (0-50); Magnesium 1.2 mg/dL (1.6-2.3); Phosphorous 3.6 mg/dL (2.8-4.1); Sodium 135 mmol/L (137-145); Total Protein 5.6 g/dL (6.3-8.2)
[2022-01-10 12:00] LABS: Appearance Urine UA CLEAR; Bilirubin Urine UA NEGATIVE (NEGATIVE); Color Urine UA YELLOW; Glucose Urine UA NEGATIVE (Negative); Ketones Urine UA NEGATIVE (NEGATIVE); Leukocyte Esterase Urine UA TRACE (NEGATIVE); Nitrite Urine UA NEGATIVE (Negative); Occult Blood Urine UA 3+ (Negative); Protein Urine UA 1+ (Negative); Specific Gravity Urine UA <=1.005 (1.000-1.035); Urobilinogen Urine UA 0.2 E.U./dL (0.2)
[2022-01-10 12:03] LABS: Bacteria Urine None Seen; Culture Indicated Urine Cult Not Indicated; RBC Urine 10-30/HPF (0-5/HPF); Squamous Epithelial Cell Urine 5-10 /HPF (0-5/HPF); WBC Urine 0-1/HPF (0-5/HPF)
[2022-01-10 12:17] LABS: Creatinine Urine Random 63.9 mg/dL; Protein (Total) Urine Random 56 mg/dL (0-12); Protein Creatinine Ratio Urine 0.87 GRAM/24H
[2022-01-11 08:59] LABS: Tacrolimus 9.2 ng/mL (2.0-20.0)
== END ==
PROVIDERS: Family Provider Student in an Organized Health Care Education/Training Program; PCP Student in an Organized Health Care Education/Training Program; Referring Provider Internal Medicine Nephrology; Visit Provider Internal Medicine Nephrology
DX: T86.90 Unspecified complication of unspecified transplanted organ and tissue (principal); Z94.0 Kidney transplant status; Z48.298 Encounter for aftercare following other organ transplant; E83.40 Disorders of magnesium metabolism, unspecified; N39.0 Urinary tract infection, site not specified
CPT/HCPCS: 36415; 80053; 80197; 81001; 82570; 83735; 84100; 84156; 85025

== ENCOUNTER → 2022-01-19 07:20 | Outpatient (CLI) | payer MEDICARE, OTHER, SELFPAY ==
[2022-01-19 08:17] LABS: Add Manual Diff / Slide Review NO; Basophils Absolute Auto 0 /uL (0-100); Basophils Percent Auto 0.9 % (0-2); Eosinophils Absolute Auto 100 /uL (0-450); Eosinophils Percent Auto 1.9 % (2-4); Hematocrit 30.9 % (36-46); Hemoglobin 10.3 g/dL (12.0-16.0); Lymphocytes Absolute Auto 400 /uL (1100-4500); Lymphocytes Percent Auto 6.6 % (25-40); Mean Corpuscular HGB Conc 33.4 % (30-36); Mean Corpuscular Hemoglobin 29.7 PG (26-34); Monocytes Absolute Auto 300 /uL (0-900); Monocytes Percent Auto 5.9 % (3-14); Neutrophils Absolute Auto 4700 /uL (1500-7000); Neutrophils Percent Auto 84.7 % (50-75); Platelet Count 274 X10^3/uL (150-400); Red Blood Cell Count 3.47 X10^6/uL (4.0-5.2); Red Cell Distribution Width 14.6 % (11.6-14.8); White Blood Cell Count 5.6 X10^3/uL (4.5-11.0)
[2022-01-19 08:39] LABS: Alanine Aminotransferase 18 IU/L (<35); Albumin 3.5 g/dL (3.5-5.0); Albumin Globulin Ratio 1.6 (1.0-2.8); Alkaline Phosphatase 64 U/L (38-126); Aspartate Aminotransferase 22 IU/L (14-36); BUN Creatinine Ratio 18.6 (6-22); Bilirubin Total 0.3 mg/dL (0.2-1.3); Blood Urea Nitrogen 16 mg/dL (7-17); Calcium 9.3 mg/dL (8.4-10.2); Carbon Dioxide 25 mmol/L (22-32); Chloride 106 mmol/L (98-107); Estimated Glomerular Filt Rate > 60 mL/min (>60); Globulin 2.2 g/dL (1.7-4.1); Glucose 165 mg/dL (80-110); HEMOLYSIS < 15 (0-50); Magnesium 1.2 mg/dL (1.6-2.3); Phosphorous 3.8 mg/dL (2.8-4.1); Potassium 4.1 mmol/L (3.4-5.1); Sodium 137 mmol/L (137-145); Total Protein 5.7 g/dL (6.3-8.2)
[2022-01-19 13:05] LABS: Appearance Urine UA SL CLOUDY; Bilirubin Urine UA NEGATIVE (NEGATIVE); Color Urine UA BROWN; Glucose Urine UA NEGATIVE (Negative); Ketones Urine UA NEGATIVE (NEGATIVE); Leukocyte Esterase Urine UA TRACE (NEGATIVE); Nitrite Urine UA NEGATIVE (Negative); Occult Blood Urine UA 3+ (Negative); Protein Urine UA 2+ (Negative); Specific Gravity Urine UA 1.015 (1.000-1.035); Urobilinogen Urine UA 0.2 E.U./dL (0.2)
[2022-01-19 13:06] LABS: pH Urine UA 6.5 (4.5-8.0)
[2022-01-19 13:13] LABS: Bacteria Urine None Seen; Culture Indicated Urine Specimen Cultured; RBC Urine 30-100/HPF (0-5/HPF); Squamous Epithelial Cell Urine 1-5 /HPF (0-5/HPF); WBC Urine 1-5/HPF (0-5/HPF)
[2022-01-19 15:50] LABS: Creatinine Urine Random 122.6 mg/dL; Protein (Total) Urine Random 114 mg/dL (0-12); Protein Creatinine Ratio Urine 0.92 GRAM/24H
[2022-01-20 08:06] LABS: Tacrolimus 11.2 ng/mL (2.0-20.0)
== END ==
PROVIDERS: Family Provider Student in an Organized Health Care Education/Training Program; PCP Student in an Organized Health Care Education/Training Program; Referring Provider Internal Medicine Nephrology; Visit Provider Internal Medicine Nephrology
DX: Z94.0 Kidney transplant status (principal); Z48.298 Encounter for aftercare following other organ transplant; T86.90 Unspecified complication of unspecified transplanted organ and tissue; E83.40 Disorders of magnesium metabolism, unspecified; N39.0 Urinary tract infection, site not specified
CPT/HCPCS: 36415; 80053; 80197; 81001; 82570; 83735; 84100; 84156; 85025; 87086

== ENCOUNTER → 2022-01-24 07:26 | Outpatient (CLI) | payer MEDICARE, OTHER, SELFPAY ==
[2022-01-24 09:00] LABS: Add Manual Diff / Slide Review NO; Basophils Absolute Auto 0 /uL (0-100); Basophils Percent Auto 0.8 % (0-2); Eosinophils Absolute Auto 100 /uL (0-450); Hematocrit 31.1 % (36-46); Hemoglobin 10.5 g/dL (12.0-16.0); Lymphocytes Absolute Auto 300 /uL (1100-4500); Lymphocytes Percent Auto 5.7 % (25-40); Mean Corpuscular HGB Conc 33.7 % (30-36); Mean Corpuscular Hemoglobin 29.8 PG (26-34); Mean Corpuscular Volume 88.5 fL (80-100); Monocytes Absolute Auto 400 /uL (0-900); Neutrophils Absolute Auto 5000 /uL (1500-7000); Neutrophils Percent Auto 85.5 % (50-75); Platelet Count 227 X10^3/uL (150-400); Red Blood Cell Count 3.51 X10^6/uL (4.0-5.2); Red Cell Distribution Width 14.7 % (11.6-14.8); White Blood Cell Count 5.9 X10^3/uL (4.5-11.0)
[2022-01-24 10:07] LABS: Alanine Aminotransferase 22 IU/L (<35); Albumin 3.5 g/dL (3.5-5.0); Albumin Globulin Ratio 1.7 (1.0-2.8); Alkaline Phosphatase 59 U/L (38-126); Aspartate Aminotransferase 24 IU/L (14-36); BUN Creatinine Ratio 13.6 (6-22); Bilirubin Total 0.4 mg/dL (0.2-1.3); Blood Urea Nitrogen 11 mg/dL (7-17); Calcium 9.2 mg/dL (8.4-10.2); Carbon Dioxide 24 mmol/L (22-32); Chloride 105 mmol/L (98-107); Estimated Glomerular Filt Rate > 60 mL/min (>60); Globulin 2.1 g/dL (1.7-4.1); Glucose 147 mg/dL (80-110); HEMOLYSIS < 15 (0-50); Magnesium 1.2 mg/dL (1.6-2.3); Phosphorous 3.4 mg/dL (2.8-4.1); Potassium 3.9 mmol/L (3.4-5.1); Sodium 137 mmol/L (137-145); Total Protein 5.6 g/dL (6.3-8.2)
[2022-01-24 13:17] LABS: Appearance Urine UA CLEAR; Bilirubin Urine UA NEGATIVE (NEGATIVE); Color Urine UA YELLOW; Glucose Urine UA NEGATIVE (Negative); Ketones Urine UA NEGATIVE (NEGATIVE); Leukocyte Esterase Urine UA 1+ (NEGATIVE); Nitrite Urine UA NEGATIVE (Negative); Occult Blood Urine UA 3+ (Negative); Protein Urine UA TRACE (Negative); Specific Gravity Urine UA <=1.005 (1.000-1.035); Urobilinogen Urine UA 0.2 E.U./dL (0.2)
[2022-01-24 13:26] LABS: Bacteria Urine None Seen; Culture Indicated Urine Specimen Cultured; RBC Urine 5-10/HPF (0-5/HPF); WBC Urine 1-5/HPF (0-5/HPF)
[2022-01-24 13:41] LABS: Creatinine Urine Random 60.9 mg/dL; Protein (Total) Urine Random 29 mg/dL (0-12); Protein Creatinine Ratio Urine 0.47 GRAM/24H
[2022-01-25 09:09] LABS: Tacrolimus 5.3 ng/mL (2.0-20.0)
== END ==
PROVIDERS: Family Provider Student in an Organized Health Care Education/Training Program; PCP Student in an Organized Health Care Education/Training Program; Referring Provider Internal Medicine Nephrology; Visit Provider Internal Medicine Nephrology
DX: Z94.0 Kidney transplant status (principal); Z48.298 Encounter for aftercare following other organ transplant; T86.90 Unspecified complication of unspecified transplanted organ and tissue; E83.40 Disorders of magnesium metabolism, unspecified; N39.0 Urinary tract infection, site not specified
CPT/HCPCS: 36415; 80053; 80197; 81001; 82570; 83735; 84100; 84156; 85025; 87086

== ENCOUNTER → 2022-02-03 07:23 | Outpatient (CLI) | payer MEDICARE, OTHER, SELFPAY ==
[2022-02-03 09:12] LABS: Add Manual Diff / Slide Review NO; Basophils Absolute Auto 0 /uL (0-100); Basophils Percent Auto 0.7 % (0-2); Eosinophils Absolute Auto 100 /uL (0-450); Eosinophils Percent Auto 1.8 % (2-4); Hematocrit 33.7 % (36-46); Hemoglobin 11.2 g/dL (12.0-16.0); Lymphocytes Absolute Auto 400 /uL (1100-4500); Lymphocytes Percent Auto 5.6 % (25-40); Mean Corpuscular HGB Conc 33.1 % (30-36); Mean Corpuscular Hemoglobin 29.2 PG (26-34); Mean Corpuscular Volume 88.1 fL (80-100); Monocytes Absolute Auto 300 /uL (0-900); Monocytes Percent Auto 4.7 % (3-14); Neutrophils Absolute Auto 5700 /uL (1500-7000); Neutrophils Percent Auto 87.2 % (50-75); Platelet Count 264 X10^3/uL (150-400); Red Blood Cell Count 3.83 X10^6/uL (4.0-5.2); Red Cell Distribution Width 14.8 % (11.6-14.8); White Blood Cell Count 6.6 X10^3/uL (4.5-11.0)
[2022-02-03 09:13] LABS: Alanine Aminotransferase 17 IU/L (<35); Albumin 3.6 g/dL (3.5-5.0); Albumin Globulin Ratio 1.6 (1.0-2.8); Alkaline Phosphatase 57 U/L (38-126); Aspartate Aminotransferase 22 IU/L (14-36); BUN Creatinine Ratio 25.3 (6-22); Bilirubin Total 0.5 mg/dL (0.2-1.3); Blood Urea Nitrogen 19 mg/dL (7-17); Calcium 9.4 mg/dL (8.4-10.2); Carbon Dioxide 24 mmol/L (22-32); Chloride 105 mmol/L (98-107); Estimated Glomerular Filt Rate > 60 mL/min (>60); Globulin 2.2 g/dL (1.7-4.1); Glucose 158 mg/dL (80-110); HEMOLYSIS < 15 (0-50); Magnesium 1.2 mg/dL (1.6-2.3); Phosphorous 3.4 mg/dL (2.8-4.1); Potassium 4.3 mmol/L (3.4-5.1); Sodium 138 mmol/L (137-145); Total Protein 5.8 g/dL (6.3-8.2)
[2022-02-03 12:52] LABS: Appearance Urine UA CLEAR; Bilirubin Urine UA NEGATIVE (NEGATIVE); Color Urine UA YELLOW; Glucose Urine UA NEGATIVE (Negative); Ketones Urine UA NEGATIVE (NEGATIVE); Leukocyte Esterase Urine UA NEGATIVE (NEGATIVE); Nitrite Urine UA NEGATIVE (Negative); Occult Blood Urine UA NEGATIVE (Negative); Protein Urine UA TRACE (Negative); Urobilinogen Urine UA 0.2 E.U./dL (0.2)
[2022-02-03 12:53] LABS: pH Urine UA 6.5 (4.5-8.0)
[2022-02-03 13:24] LABS: Bacteria Urine None Seen; Culture Indicated Urine Cult Not Indicated; RBC Urine 0-1/HPF (0-5/HPF); Squamous Epithelial Cell Urine None Seen (0-5/HPF); WBC Urine None Seen (0-5/HPF)
[2022-02-03 15:02] LABS: Creatinine Urine Random 107.5 mg/dL; Protein (Total) Urine Random 21 mg/dL (0-12); Protein Creatinine Ratio Urine 0.19 GRAM/24H
[2022-02-04 08:32] LABS: Tacrolimus 7.7 ng/mL (2.0-20.0)
== END ==
PROVIDERS: Family Provider Student in an Organized Health Care Education/Training Program; PCP Student in an Organized Health Care Education/Training Program; Referring Provider Internal Medicine Nephrology; Visit Provider Internal Medicine Nephrology
DX: Z94.0 Kidney transplant status (principal); E83.40 Disorders of magnesium metabolism, unspecified; Z48.298 Encounter for aftercare following other organ transplant; T86.90 Unspecified complication of unspecified transplanted organ and tissue; N39.0 Urinary tract infection, site not specified
CPT/HCPCS: 36415; 80053; 80197; 81001; 82570; 83735; 84100; 84156; 85025

== ENCOUNTER → 2022-02-14 07:43 | Outpatient (CLI) | payer MEDICARE, OTHER, SELFPAY ==
[2022-02-14 08:31] LABS: Add Manual Diff / Slide Review NO; Basophils Absolute Auto 0 /uL (0-100); Basophils Percent Auto 0.6 % (0-2); Eosinophils Absolute Auto 100 /uL (0-450); Eosinophils Percent Auto 1.7 % (2-4); Hematocrit 34.2 % (36-46); Hemoglobin 11.6 g/dL (12.0-16.0); Lymphocytes Absolute Auto 500 /uL (1100-4500); Lymphocytes Percent Auto 8.6 % (25-40); Mean Corpuscular HGB Conc 33.8 % (30-36); Mean Corpuscular Hemoglobin 29.7 PG (26-34); Mean Corpuscular Volume 87.9 fL (80-100); Monocytes Absolute Auto 400 /uL (0-900); Monocytes Percent Auto 6.5 % (3-14); Neutrophils Absolute Auto 5300 /uL (1500-7000); Neutrophils Percent Auto 82.6 % (50-75); Platelet Count 242 X10^3/uL (150-400); Red Blood Cell Count 3.89 X10^6/uL (4.0-5.2); Red Cell Distribution Width 14.9 % (11.6-14.8); White Blood Cell Count 6.4 X10^3/uL (4.5-11.0)
[2022-02-14 08:41] LABS: Alanine Aminotransferase 20 IU/L (<35); Albumin 3.7 g/dL (3.5-5.0); Albumin Globulin Ratio 1.6 (1.0-2.8); Alkaline Phosphatase 57 U/L (38-126); Aspartate Aminotransferase 27 IU/L (14-36); BUN Creatinine Ratio 17.4 (6-22); Bilirubin Total 0.5 mg/dL (0.2-1.3); Blood Urea Nitrogen 15 mg/dL (7-17); Carbon Dioxide 22 mmol/L (22-32); Chloride 104 mmol/L (98-107); Estimated Glomerular Filt Rate > 60 mL/min (>60); Globulin 2.3 g/dL (1.7-4.1); Glucose 163 mg/dL (80-110); HEMOLYSIS < 15 (0-50); Magnesium 1.4 mg/dL (1.6-2.3); Phosphorous 3.5 mg/dL (2.8-4.1); Potassium 3.9 mmol/L (3.4-5.1); Sodium 134 mmol/L (137-145)
[2022-02-14 12:11] LABS: Appearance Urine UA CLEAR; Bilirubin Urine UA NEGATIVE (NEGATIVE); Color Urine UA YELLOW; Glucose Urine UA NEGATIVE (Negative); Ketones Urine UA NEGATIVE (NEGATIVE); Leukocyte Esterase Urine UA TRACE (NEGATIVE); Nitrite Urine UA NEGATIVE (Negative); Occult Blood Urine UA NEGATIVE (Negative); Protein Urine UA NEGATIVE (Negative); Urobilinogen Urine UA 0.2 E.U./dL (0.2)
[2022-02-14 12:25] LABS: RBC Urine None Seen (0-5/HPF); Renal Epithelial Cells Urine 1-5/HPF (0-1/HPF); Squamous Epithelial Cell Urine 1-5 /HPF (0-5/HPF); WBC Urine 5-10/HPF (0-5/HPF)
[2022-02-14 12:26] LABS: Bacteria Urine Few (2-10); Culture Indicated Urine Specimen Cultured
[2022-02-15 09:09] LABS: Tacrolimus 9.8 ng/mL (2.0-20.0)
== END ==
PROVIDERS: Family Provider Student in an Organized Health Care Education/Training Program; PCP Student in an Organized Health Care Education/Training Program; Referring Provider Internal Medicine Nephrology; Visit Provider Internal Medicine Nephrology
DX: Z94.0 Kidney transplant status (principal); Z48.298 Encounter for aftercare following other organ transplant; T86.90 Unspecified complication of unspecified transplanted organ and tissue; E83.40 Disorders of magnesium metabolism, unspecified; N39.0 Urinary tract infection, site not specified
CPT/HCPCS: 36415; 80053; 80197; 81001; 83735; 84100; 85025; 87086

== ENCOUNTER → 2022-02-25 08:24 | Outpatient (CLI) | payer MEDICARE, OTHER, SELFPAY ==
[2022-02-25 09:49] LABS: Basophils Absolute Auto 100 /uL (0-100); Basophils Percent Auto 0.7 % (0-2); Eosinophils Absolute Auto 100 /uL (0-450); Eosinophils Percent Auto 1.5 % (2-4); Hematocrit 34.9 % (36-46); Lymphocytes Absolute Auto 500 /uL (1100-4500); Lymphocytes Percent Auto 5.2 % (25-40); Mean Corpuscular HGB Conc 34.4 % (30-36); Mean Corpuscular Volume 87.1 fL (80-100); Monocytes Absolute Auto 500 /uL (0-900); Monocytes Percent Auto 5.3 % (3-14); Neutrophils Absolute Auto 8300 /uL (1500-7000); Neutrophils Percent Auto 87.3 % (50-75); Red Cell Distribution Width 14.8 % (11.6-14.8); White Blood Cell Count 9.5 X10^3/uL (4.5-11.0)
[2022-02-25 10:14] LABS: Add Manual Diff / Slide Review SLIDE REVIEW
[2022-02-25 10:16] LABS: Alanine Aminotransferase 18 IU/L (<35); Albumin 3.8 g/dL (3.5-5.0); Albumin Globulin Ratio 1.7 (1.0-2.8); Alkaline Phosphatase 58 U/L (38-126); Aspartate Aminotransferase 23 IU/L (14-36); BUN Creatinine Ratio 24.7 (6-22); Bilirubin Total 0.4 mg/dL (0.2-1.3); Blood Urea Nitrogen 20 mg/dL (7-17); Calcium 9.6 mg/dL (8.4-10.2); Carbon Dioxide 26 mmol/L (22-32); Chloride 105 mmol/L (98-107); Estimated Glomerular Filt Rate > 60 mL/min (>60); Globulin 2.2 g/dL (1.7-4.1); Glucose 179 mg/dL (80-110); HEMOLYSIS < 15 (0-50); Magnesium 1.2 mg/dL (1.6-2.3); Phosphorous 3.5 mg/dL (2.8-4.1); Potassium 4.2 mmol/L (3.4-5.1); Sodium 136 mmol/L (137-145)
[2022-02-25 11:31] LABS: Platelet Count 222 X10^3/uL (150-400); RBC Morphology Normal Morphology
[2022-02-25 12:17] LABS: Appearance Urine UA CLEAR; Bilirubin Urine UA NEGATIVE (NEGATIVE); Color Urine UA YELLOW; Glucose Urine UA NEGATIVE (Negative); Ketones Urine UA NEGATIVE (NEGATIVE); Leukocyte Esterase Urine UA 1+ (NEGATIVE); Nitrite Urine UA NEGATIVE (Negative); Occult Blood Urine UA NEGATIVE (Negative); Protein Urine UA TRACE (Negative); Urobilinogen Urine UA 0.2 E.U./dL (0.2)
[2022-02-25 12:32] LABS: pH Urine UA 6.5 (4.5-8.0)
[2022-02-25 12:43] LABS: Bacteria Urine None Seen; Culture Indicated Urine Cult Not Indicated; RBC Urine None Seen (0-5/HPF); Squamous Epithelial Cell Urine 0-1 /HPF (0-5/HPF); WBC Urine 1-5/HPF (0-5/HPF)
[2022-02-25 20:17] LABS: Creatinine Urine Random 101.4 mg/dL; Protein (Total) Urine Random 34 mg/dL (0-12); Protein Creatinine Ratio Urine 0.33 GRAM/24H
[2022-02-26 08:28] LABS: Tacrolimus 10.6 ng/mL (2.0-20.0)
== END ==
PROVIDERS: Family Provider Student in an Organized Health Care Education/Training Program; PCP Student in an Organized Health Care Education/Training Program; Referring Provider Internal Medicine Nephrology; Visit Provider Internal Medicine Nephrology
DX: T86.90 Unspecified complication of unspecified transplanted organ and tissue (principal); Z94.0 Kidney transplant status; Z48.298 Encounter for aftercare following other organ transplant; E83.40 Disorders of magnesium metabolism, unspecified; N39.0 Urinary tract infection, site not specified
CPT/HCPCS: 36415; 80053; 80197; 81001; 82570; 83735; 84100; 84156; 85025

== ENCOUNTER → 2022-03-14 07:47 | Outpatient (CLI) | payer MEDICARE, OTHER, SELFPAY ==
[2022-03-14 08:46] LABS: Appearance Urine UA SL CLOUDY; Bilirubin Urine UA NEGATIVE (NEGATIVE); Color Urine UA YELLOW; Glucose Urine UA 2+ g/dL (Negative); Ketones Urine UA NEGATIVE (NEGATIVE); Leukocyte Esterase Urine UA NEGATIVE (NEGATIVE); Nitrite Urine UA NEGATIVE (Negative); Occult Blood Urine UA NEGATIVE (Negative); Protein Urine UA TRACE (Negative); Urobilinogen Urine UA 0.2 E.U./dL (0.2)
[2022-03-14 08:54] LABS: RBC Urine 0-1/HPF (0-5/HPF); Squamous Epithelial Cell Urine 0-1 /HPF (0-5/HPF); Transitional Epi Cells Urine 1-5/HPF (0-5/HPF); WBC Urine 0-1/HPF (0-5/HPF)
[2022-03-14 08:55] LABS: Bacteria Urine None Seen; Culture Indicated Urine Cult Not Indicated
[2022-03-14 08:56] LABS: Add Manual Diff / Slide Review NO; Basophils Absolute Auto 0 /uL (0-100); Basophils Percent Auto 0.5 % (0-2); Eosinophils Absolute Auto 100 /uL (0-450); Eosinophils Percent Auto 1.4 % (2-4); Hematocrit 36.9 % (36-46); Hemoglobin 12.3 g/dL (12.0-16.0); Lymphocytes Absolute Auto 400 /uL (1100-4500); Lymphocytes Percent Auto 5.3 % (25-40); Mean Corpuscular HGB Conc 33.3 % (30-36); Mean Corpuscular Hemoglobin 29.1 PG (26-34); Mean Corpuscular Volume 87.4 fL (80-100); Monocytes Absolute Auto 800 /uL (0-900); Monocytes Percent Auto 9.3 % (3-14); Neutrophils Absolute Auto 6900 /uL (1500-7000); Neutrophils Percent Auto 83.5 % (50-75); Platelet Count 230 X10^3/uL (150-400); Red Blood Cell Count 4.22 X10^6/uL (4.0-5.2); Red Cell Distribution Width 14.6 % (11.6-14.8); White Blood Cell Count 8.3 X10^3/uL (4.5-11.0)
[2022-03-14 09:04] LABS: Creatinine Urine Random 104.9 mg/dL; Protein (Total) Urine Random 43 mg/dL (0-12)
[2022-03-14 09:16] LABS: Alanine Aminotransferase 21 IU/L (<35); Albumin 3.8 g/dL (3.5-5.0); Albumin Globulin Ratio 1.6 (1.0-2.8); Alkaline Phosphatase 62 U/L (38-126); Aspartate Aminotransferase 25 IU/L (14-36); BUN Creatinine Ratio 21.1 (6-22); Bilirubin Total 0.6 mg/dL (0.2-1.3); Blood Urea Nitrogen 19 mg/dL (7-17); Calcium 9.6 mg/dL (8.4-10.2); Carbon Dioxide 24 mmol/L (22-32); Chloride 105 mmol/L (98-107); Estimated Glomerular Filt Rate > 60 mL/min (>60); Globulin 2.4 g/dL (1.7-4.1); Glucose 169 mg/dL (80-110); HEMOLYSIS < 15 (0-50); Magnesium 1.4 mg/dL (1.6-2.3); Phosphorous 3.6 mg/dL (2.8-4.1); Potassium 4.5 mmol/L (3.4-5.1); Sodium 135 mmol/L (137-145); Total Protein 6.2 g/dL (6.3-8.2)
[2022-03-15 09:36] LABS: Tacrolimus 9.7 ng/mL (2.0-20.0)
[2022-03-15 15:12] LABS: Hemoglobin A1C% w Est Avg Glu 5.5 % (4.0-6.0)
== END ==
PROVIDERS: Family Provider Student in an Organized Health Care Education/Training Program; PCP Student in an Organized Health Care Education/Training Program; Referring Provider Internal Medicine Nephrology; Visit Provider Internal Medicine Nephrology
DX: Z94.0 Kidney transplant status (principal); Z48.298 Encounter for aftercare following other organ transplant; T86.90 Unspecified complication of unspecified transplanted organ and tissue; E83.40 Disorders of magnesium metabolism, unspecified; N39.0 Urinary tract infection, site not specified; R73.9 Hyperglycemia, unspecified
CPT/HCPCS: 36415; 80053; 80197; 81001; 82570; 83036; 83735; 84100; 84156; 85025

== ENCOUNTER → 2022-03-22 07:16 | Outpatient (CLI) | payer MEDICARE, OTHER, SELFPAY ==
[2022-03-22 08:24] LABS: Add Manual Diff / Slide Review NO; Basophils Absolute Auto 0 /uL (0-100); Basophils Percent Auto 0.6 % (0-2); Eosinophils Absolute Auto 200 /uL (0-450); Eosinophils Percent Auto 2.3 % (2-4); Hematocrit 39.5 % (36-46); Hemoglobin 12.8 g/dL (12.0-16.0); Lymphocytes Absolute Auto 600 /uL (1100-4500); Lymphocytes Percent Auto 8.5 % (25-40); Mean Corpuscular HGB Conc 32.5 % (30-36); Mean Corpuscular Hemoglobin 28.4 PG (26-34); Mean Corpuscular Volume 87.6 fL (80-100); Monocytes Absolute Auto 700 /uL (0-900); Monocytes Percent Auto 10.1 % (3-14); Neutrophils Absolute Auto 5300 /uL (1500-7000); Neutrophils Percent Auto 78.5 % (50-75); Platelet Count 260 X10^3/uL (150-400); Red Blood Cell Count 4.51 X10^6/uL (4.0-5.2); Red Cell Distribution Width 14.6 % (11.6-14.8); White Blood Cell Count 6.7 X10^3/uL (4.5-11.0)
[2022-03-22 08:48] LABS: Alanine Aminotransferase 20 IU/L (<35); Albumin 3.8 g/dL (3.5-5.0); Albumin Globulin Ratio 1.4 (1.0-2.8); Alkaline Phosphatase 59 U/L (38-126); Aspartate Aminotransferase 25 IU/L (14-36); BUN Creatinine Ratio 19.2 (6-22); Bilirubin Total 0.5 mg/dL (0.2-1.3); Blood Urea Nitrogen 15 mg/dL (7-17); Calcium 9.3 mg/dL (8.4-10.2); Carbon Dioxide 24 mmol/L (22-32); Chloride 107 mmol/L (98-107); Estimated Glomerular Filt Rate > 60 mL/min (>60); Globulin 2.7 g/dL (1.7-4.1); Glucose 140 mg/dL (80-110); HEMOLYSIS < 15 (0-50); Magnesium 1.6 mg/dL (1.6-2.3); Phosphorous 3.6 mg/dL (2.8-4.1); Potassium 3.5 mmol/L (3.4-5.1); Sodium 138 mmol/L (137-145); Total Protein 6.5 g/dL (6.3-8.2)
[2022-03-22 15:42] LABS: Appearance Urine UA CLEAR; Bilirubin Urine UA NEGATIVE (NEGATIVE); Color Urine UA YELLOW; Glucose Urine UA 3+ g/dL (Negative); Ketones Urine UA NEGATIVE (NEGATIVE); Leukocyte Esterase Urine UA NEGATIVE (NEGATIVE); Nitrite Urine UA NEGATIVE (Negative); Occult Blood Urine UA NEGATIVE (Negative); Protein Urine UA TRACE (Negative); Urobilinogen Urine UA 0.2 E.U./dL (0.2)
[2022-03-22 15:52] LABS: Bacteria Urine None Seen; Culture Indicated Urine Cult Not Indicated; RBC Urine None Seen (0-5/HPF); Squamous Epithelial Cell Urine 0-1 /HPF (0-5/HPF); WBC Urine 0-1/HPF (0-5/HPF)
[2022-03-22 16:02] LABS: Protein (Total) Urine Random 36 mg/dL (0-12); Protein Creatinine Ratio Urine 0.31 GRAM/24H
[2022-03-23 08:48] LABS: Tacrolimus 5.9 ng/mL (2.0-20.0)
== END ==
PROVIDERS: Family Provider Student in an Organized Health Care Education/Training Program; PCP Student in an Organized Health Care Education/Training Program; Referring Provider Internal Medicine Nephrology; Visit Provider Internal Medicine Nephrology
DX: Z94.0 Kidney transplant status (principal); Z48.298 Encounter for aftercare following other organ transplant; T86.90 Unspecified complication of unspecified transplanted organ and tissue; E83.40 Disorders of magnesium metabolism, unspecified; N39.0 Urinary tract infection, site not specified
CPT/HCPCS: 36415; 80053; 80197; 81001; 82570; 83735; 84100; 84156; 85025

== ENCOUNTER → 2022-04-01 07:23 | Outpatient (CLI) | payer MEDICARE, OTHER, SELFPAY ==
[2022-04-01 08:36] LABS: Hematocrit 39.7 % (36-46); Mean Corpuscular HGB Conc 32.7 % (30-36); Mean Corpuscular Hemoglobin 28.3 PG (26-34); Mean Corpuscular Volume 86.7 fL (80-100); Platelet Count 215 X10^3/uL (150-400); Red Blood Cell Count 4.58 X10^6/uL (4.0-5.2); Red Cell Distribution Width 14.3 % (11.6-14.8); White Blood Cell Count 8.8 X10^3/uL (4.5-11.0)
[2022-04-01 09:01] LABS: Alanine Aminotransferase 23 IU/L (<35); Albumin 3.6 g/dL (3.5-5.0); Albumin Globulin Ratio 1.4 (1.0-2.8); Alkaline Phosphatase 72 U/L (38-126); Aspartate Aminotransferase 26 IU/L (14-36); BUN Creatinine Ratio 22.1 (6-22); Bilirubin Total 0.4 mg/dL (0.2-1.3); Blood Urea Nitrogen 15 mg/dL (7-17); Calcium 9.6 mg/dL (8.4-10.2); Carbon Dioxide 25 mmol/L (22-32); Chloride 104 mmol/L (98-107); Estimated Glomerular Filt Rate > 60 mL/min (>60); Globulin 2.5 g/dL (1.7-4.1); Glucose 118 mg/dL (80-110); HEMOLYSIS < 15 (0-50); Magnesium 1.4 mg/dL (1.6-2.3); Phosphorous 3.4 mg/dL (2.8-4.1); Potassium 3.8 mmol/L (3.4-5.1); Sodium 138 mmol/L (137-145); Total Protein 6.1 g/dL (6.3-8.2)
[2022-04-01 12:18] LABS: Appearance Urine UA CLOUDY; Bilirubin Urine UA NEGATIVE (NEGATIVE); Color Urine UA YELLOW; Glucose Urine UA NEGATIVE (Negative); Ketones Urine UA NEGATIVE (NEGATIVE); Leukocyte Esterase Urine UA NEGATIVE (NEGATIVE); Nitrite Urine UA NEGATIVE (Negative); Occult Blood Urine UA NEGATIVE (Negative); Protein Urine UA TRACE (Negative); Urobilinogen Urine UA 0.2 E.U./dL (0.2)
[2022-04-01 12:36] LABS: Amorphous Sediment Urine 3+; Bacteria Urine None Seen; Culture Indicated Urine Cult Not Indicated; Hyaline Casts Urine 1-5/LPF; RBC Urine None Seen (0-5/HPF); Squamous Epithelial Cell Urine 0-1 /HPF (0-5/HPF); WBC Urine None Seen (0-5/HPF)
[2022-04-01 12:37] LABS: Creatinine Urine Random 90.7 mg/dL; Protein (Total) Urine Random 28 mg/dL (0-12)
[2022-04-02 09:11] LABS: Parathyroid Hormone Int 52 pg/mL (15-65)
[2022-04-02 11:16] LABS: Tacrolimus 5.4 ng/mL (2.0-20.0)
== END ==
PROVIDERS: Family Provider Student in an Organized Health Care Education/Training Program; PCP Student in an Organized Health Care Education/Training Program; Referring Provider Student in an Organized Health Care Education/Training Program; Visit Provider Student in an Organized Health Care Education/Training Program
DX: N25.81 Secondary hyperparathyroidism of renal origin; D70.9 Neutropenia, unspecified; N05.9 Unspecified nephritic syndrome with unspecified morphologic changes; T86.10 Unspecified complication of kidney transplant; E83.40 Disorders of magnesium metabolism, unspecified; E83.30 Disorder of phosphorus metabolism, unspecified; N30.00 Acute cystitis without hematuria; R80.9 Proteinuria, unspecified; D63.1 Anemia in chronic kidney disease
CPT/HCPCS: 36415; 80053; 80197; 81001; 82570; 83735; 83970; 84100; 84156; 85027

== ENCOUNTER → 2022-04-05 12:42 | Outpatient (CLI) | payer MEDICARE, OTHER, SELFPAY | PROVIDERS: Family Provider Student in an Organized Health Care Education/Training Program; PCP Student in an Organized Health Care Education/Training Program; Referring Provider Student in an Organized Health Care Education/Training Program; Visit Provider Student in an Organized Health Care Education/Training Program | DX: Z78.0 Asymptomatic menopausal state (principal); F19.20 Other psychoactive substance dependence, uncomplicated; M81.0 Age-related osteoporosis without current pathological fracture | CPT/HCPCS: 77080 ==

== ENCOUNTER → 2022-04-11 08:38 | Outpatient (CLI) | payer MEDICARE, OTHER, SELFPAY ==
[2022-04-12 07:35] LABS: Tacrolimus 7.4 ng/mL (2.0-20.0)
== END ==
PROVIDERS: Family Provider Student in an Organized Health Care Education/Training Program; PCP Student in an Organized Health Care Education/Training Program; Referring Provider Student in an Organized Health Care Education/Training Program; Visit Provider Student in an Organized Health Care Education/Training Program
DX: T86.10 Unspecified complication of kidney transplant (principal)
CPT/HCPCS: 36415; 80197

== ENCOUNTER → 2022-05-04 07:26 | Outpatient (CLI) | payer MEDICARE, OTHER, SELFPAY ==
[2022-05-04 08:05] LABS: Add Manual Diff / Slide Review NO; Basophils Absolute Auto 0 /uL (0-100); Basophils Percent Auto 0.6 % (0-2); Eosinophils Absolute Auto 200 /uL (0-450); Eosinophils Percent Auto 2.1 % (2-4); Hematocrit 42.8 % (36-46); Hemoglobin 13.9 g/dL (12.0-16.0); Lymphocytes Absolute Auto 600 /uL (1100-4500); Lymphocytes Percent Auto 8.1 % (25-40); Mean Corpuscular HGB Conc 32.5 % (30-36); Mean Corpuscular Volume 86.1 fL (80-100); Monocytes Absolute Auto 600 /uL (0-900); Monocytes Percent Auto 8.6 % (3-14); Neutrophils Absolute Auto 5900 /uL (1500-7000); Neutrophils Percent Auto 80.6 % (50-75); Platelet Count 250 X10^3/uL (150-400); Red Blood Cell Count 4.97 X10^6/uL (4.0-5.2); Red Cell Distribution Width 13.8 % (11.6-14.8); White Blood Cell Count 7.3 X10^3/uL (4.5-11.0)
[2022-05-04 08:25] LABS: Alanine Aminotransferase 17 IU/L (<35); Albumin 3.9 g/dL (3.5-5.0); Albumin Globulin Ratio 1.6 (1.0-2.8); Alkaline Phosphatase 83 U/L (38-126); Aspartate Aminotransferase 21 IU/L (14-36); BUN Creatinine Ratio 23.5 (6-22); Bilirubin Total 0.5 mg/dL (0.2-1.3); Blood Urea Nitrogen 16 mg/dL (7-17); Calcium 9.9 mg/dL (8.4-10.2); Carbon Dioxide 24 mmol/L (22-32); Chloride 104 mmol/L (98-107); Estimated Glomerular Filt Rate > 60 mL/min (>60); Globulin 2.5 g/dL (1.7-4.1); Glucose 121 mg/dL (80-110); HEMOLYSIS < 15 (0-50); Magnesium 1.4 mg/dL (1.6-2.3); Phosphorous 3.8 mg/dL (2.8-4.1); Potassium 4.1 mmol/L (3.4-5.1); Sodium 140 mmol/L (137-145); Total Protein 6.4 g/dL (6.3-8.2)
[2022-05-04 14:04] LABS: Appearance Urine UA SL CLOUDY; Bilirubin Urine UA NEGATIVE (NEGATIVE); Color Urine UA YELLOW; Glucose Urine UA 2+ g/dL (Negative); Ketones Urine UA NEGATIVE (NEGATIVE); Leukocyte Esterase Urine UA NEGATIVE (NEGATIVE); Nitrite Urine UA NEGATIVE (Negative); Occult Blood Urine UA NEGATIVE (Negative); Protein Urine UA NEGATIVE (Negative); Urobilinogen Urine UA 0.2 E.U./dL (0.2)
[2022-05-04 14:07] LABS: pH Urine UA 6.5 (4.5-8.0)
[2022-05-04 14:14] LABS: Amorphous Sediment Urine 1+; Bacteria Urine None Seen; Culture Indicated Urine Cult Not Indicated; RBC Urine None Seen (0-5/HPF); WBC Urine None Seen (0-5/HPF)
[2022-05-04 15:20] LABS: Protein (Total) Urine Random 28 mg/dL (0-12); Protein Creatinine Ratio Urine 0.42 GRAM/24H
[2022-05-05 06:30] LABS: Parathyroid Hormone Int 67 pg/mL (15-65)
[2022-05-05 10:01] LABS: Tacrolimus 7.2 ng/mL (2.0-20.0)
== END ==
PROVIDERS: Family Provider Student in an Organized Health Care Education/Training Program; PCP Student in an Organized Health Care Education/Training Program; Referring Provider Student in an Organized Health Care Education/Training Program; Visit Provider Student in an Organized Health Care Education/Training Program
DX: D70.9 Neutropenia, unspecified (principal); E83.40 Disorders of magnesium metabolism, unspecified; D63.1 Anemia in chronic kidney disease; N05.9 Unspecified nephritic syndrome with unspecified morphologic changes; T86.10 Unspecified complication of kidney transplant; E83.30 Disorder of phosphorus metabolism, unspecified; N25.81 Secondary hyperparathyroidism of renal origin; N30.00 Acute cystitis without hematuria; R80.9 Proteinuria, unspecified
CPT/HCPCS: 36415; 80053; 80197; 81001; 82570; 83735; 83970; 84100; 84156; 85025

== ENCOUNTER → 2022-06-22 09:04 | Outpatient (CLI) | payer MEDICARE, OTHER, SELFPAY ==
[2022-06-22 11:12] LABS: Add Manual Diff / Slide Review NO; Basophils Absolute Auto 0 /uL (0-100); Basophils Percent Auto 0.3 % (0-2); Eosinophils Absolute Auto 200 /uL (0-450); Eosinophils Percent Auto 1.9 % (2-4); Hematocrit 45.1 % (36-46); Lymphocytes Absolute Auto 600 /uL (1100-4500); Lymphocytes Percent Auto 7.4 % (25-40); Mean Corpuscular HGB Conc 33.2 % (30-36); Mean Corpuscular Volume 84.5 fL (80-100); Monocytes Absolute Auto 600 /uL (0-900); Monocytes Percent Auto 6.9 % (3-14); Neutrophils Absolute Auto 6800 /uL (1500-7000); Neutrophils Percent Auto 83.5 % (50-75); Platelet Count 241 X10^3/uL (150-400); Red Blood Cell Count 5.34 X10^6/uL (4.0-5.2); Red Cell Distribution Width 14.3 % (11.6-14.8); White Blood Cell Count 8.2 X10^3/uL (4.5-11.0)
[2022-06-22 11:40] LABS: Alanine Aminotransferase 27 IU/L (<35); Albumin 3.9 g/dL (3.5-5.0); Albumin Globulin Ratio 1.6 (1.0-2.8); Alkaline Phosphatase 95 U/L (38-126); Aspartate Aminotransferase 25 IU/L (14-36); BUN Creatinine Ratio 19.6 (6-22); Bilirubin Total 0.4 mg/dL (0.2-1.3); Blood Urea Nitrogen 11 mg/dL (7-17); Calcium 9.8 mg/dL (8.4-10.2); Carbon Dioxide 25 mmol/L (22-32); Chloride 104 mmol/L (98-107); Estimated Glomerular Filt Rate > 60 mL/min (>60); Globulin 2.4 g/dL (1.7-4.1); Glucose 118 mg/dL (80-110); HEMOLYSIS < 15 (0-50); Magnesium 1.6 mg/dL (1.6-2.3); Phosphorous 3.7 mg/dL (2.8-4.1); Potassium 3.7 mmol/L (3.4-5.1); Sodium 140 mmol/L (137-145); Total Protein 6.3 g/dL (6.3-8.2)
[2022-06-22 14:09] LABS: Bilirubin Urine UA NEGATIVE (NEGATIVE); Color Urine UA YELLOW; Glucose Urine UA 2+ g/dL (Negative); Ketones Urine UA NEGATIVE (NEGATIVE); Leukocyte Esterase Urine UA NEGATIVE (NEGATIVE); Nitrite Urine UA NEGATIVE (Negative); Occult Blood Urine UA NEGATIVE (Negative); Protein Urine UA NEGATIVE (Negative); Specific Gravity Urine UA 1.015 (1.000-1.035); Urobilinogen Urine UA 0.2 E.U./dL (0.2)
[2022-06-22 14:10] LABS: Appearance Urine UA Clear; pH Urine UA 6.5 (4.5-8.0)
[2022-06-22 14:18] LABS: Amorphous Sediment Urine 1+; Bacteria Urine None Seen; Culture Indicated Urine Cult Not Indicated; Mucus Urine 1+ (Negative); RBC Urine None Seen (0-5/HPF); Squamous Epithelial Cell Urine 0-1 /HPF (0-5/HPF); WBC Urine 0-1/HPF (0-5/HPF)
[2022-06-22 18:01] LABS: Creatinine Urine Random 92.1 mg/dL; Protein (Total) Urine Random 36 mg/dL (0-12); Protein Creatinine Ratio Urine 0.39 GRAM/24H
[2022-06-23 10:02] LABS: Tacrolimus 6.7 ng/mL (2.0-20.0)
[2022-06-23 13:47] LABS: Parathyroid Hormone Int 68 pg/mL (15-65)
== END ==
PROVIDERS: Family Provider Student in an Organized Health Care Education/Training Program; PCP Student in an Organized Health Care Education/Training Program; Referring Provider Student in an Organized Health Care Education/Training Program; Visit Provider Student in an Organized Health Care Education/Training Program
DX: D70.9 Neutropenia, unspecified (principal); N25.81 Secondary hyperparathyroidism of renal origin; D63.1 Anemia in chronic kidney disease; N05.9 Unspecified nephritic syndrome with unspecified morphologic changes; T86.10 Unspecified complication of kidney transplant; E83.40 Disorders of magnesium metabolism, unspecified; N30.00 Acute cystitis without hematuria; R80.9 Proteinuria, unspecified
CPT/HCPCS: 36415; 80053; 80197; 81001; 82570; 83735; 83970; 84100; 84156; 85025

== ENCOUNTER → 2022-08-04 07:11 | Outpatient (CLI) | payer MEDICARE, OTHER, SELFPAY ==
[2022-08-04 08:25] LABS: Appearance Urine UA SL CLOUDY; Bilirubin Urine UA NEGATIVE (NEGATIVE); Color Urine UA YELLOW; Glucose Urine UA 2+ g/dL (Negative); Ketones Urine UA NEGATIVE (NEGATIVE); Leukocyte Esterase Urine UA NEGATIVE (NEGATIVE); Nitrite Urine UA NEGATIVE (Negative); Occult Blood Urine UA NEGATIVE (Negative); Protein Urine UA NEGATIVE (Negative); Specific Gravity Urine UA 1.015 (1.000-1.035); Urobilinogen Urine UA 0.2 E.U./dL (0.2)
[2022-08-04 08:27] LABS: Add Manual Diff / Slide Review NO; Basophils Absolute Auto 300 /uL (0-100); Basophils Percent Auto 3.3 % (0-2); Eosinophils Absolute Auto 200 /uL (0-450); Eosinophils Percent Auto 1.8 % (2-4); Hematocrit 46.9 % (36-46); Hemoglobin 15.3 g/dL (12.0-16.0); Lymphocytes Absolute Auto 800 /uL (1100-4500); Lymphocytes Percent Auto 9.9 % (25-40); Mean Corpuscular HGB Conc 32.7 % (30-36); Mean Corpuscular Volume 85.7 fL (80-100); Monocytes Absolute Auto 400 /uL (0-900); Monocytes Percent Auto 4.4 % (3-14); Neutrophils Absolute Auto 6800 /uL (1500-7000); Neutrophils Percent Auto 80.6 % (50-75); Platelet Count 224 X10^3/uL (150-400); Red Blood Cell Count 5.48 X10^6/uL (4.0-5.2); Red Cell Distribution Width 14.6 % (11.6-14.8); White Blood Cell Count 8.4 X10^3/uL (4.5-11.0)
[2022-08-04 08:38] LABS: Alanine Aminotransferase 28 IU/L (<35); Alkaline Phosphatase 93 U/L (38-126); Aspartate Aminotransferase 30 IU/L (14-36); BUN Creatinine Ratio 19.2 (6-22); Bilirubin Total 0.7 mg/dL (0.2-1.3); Blood Urea Nitrogen 10 mg/dL (7-17); Calcium 9.6 mg/dL (8.4-10.2); Carbon Dioxide 19 mmol/L (22-32); Chloride 110 mmol/L (98-107); Estimated Glomerular Filt Rate > 60 mL/min (>60); Glucose 139 mg/dL (80-110); Magnesium 1.4 mg/dL (1.6-2.3); Phosphorous 3.9 mg/dL (2.8-4.1); Potassium 3.5 mmol/L (3.4-5.1); Sodium 139 mmol/L (137-145); Total Protein 6.7 g/dL (6.3-8.2)
[2022-08-04 08:46] LABS: Amorphous Sediment Urine 3+; Bacteria Urine None Seen; Culture Indicated Urine Specimen Cultured; RBC Urine None Seen (0-5/HPF); Squamous Epithelial Cell Urine 0-1 /HPF (0-5/HPF); WBC Urine 1-5/HPF (0-5/HPF)
[2022-08-04 09:48] LABS: Creatinine Urine Random 59.6 mg/dL; Protein (Total) Urine Random 27 mg/dL (0-12); Protein Creatinine Ratio Urine 0.45 GRAM/24H
[2022-08-05 10:36] LABS: Tacrolimus 8.7 ng/mL (2.0-20.0)
[2022-08-05 17:04] LABS: Albumin 3.9 g/dL (3.5-5.0); Albumin Globulin Ratio 1.4 (1.0-2.8); Globulin 2.8 g/dL (1.7-4.1); HEMOLYSIS 15 (0-50)
== END ==
PROVIDERS: Family Provider Student in an Organized Health Care Education/Training Program; PCP Student in an Organized Health Care Education/Training Program; Referring Provider Internal Medicine Nephrology; Visit Provider Internal Medicine Nephrology
DX: Z94.0 Kidney transplant status (principal); Z48.298 Encounter for aftercare following other organ transplant; T86.90 Unspecified complication of unspecified transplanted organ and tissue; E83.40 Disorders of magnesium metabolism, unspecified; E55.9 Vitamin D deficiency, unspecified
CPT/HCPCS: 36415; 80053; 80197; 81001; 82570; 83735; 84100; 84156; 85025; 87086

== ENCOUNTER → 2022-09-22 07:44 | Outpatient (CLI) | payer MEDICARE, OTHER, SELFPAY ==
[2022-09-22 08:33] LABS: Add Manual Diff / Slide Review NO; Basophils Absolute Auto 100 /uL (0-100); Basophils Percent Auto 0.7 % (0-2); Eosinophils Absolute Auto 300 /uL (0-450); Eosinophils Percent Auto 3.4 % (2-4); Hematocrit 46.2 % (36-46); Hemoglobin 15.1 g/dL (12.0-16.0); Lymphocytes Absolute Auto 700 /uL (1100-4500); Mean Corpuscular HGB Conc 32.8 % (30-36); Mean Corpuscular Hemoglobin 28.4 PG (26-34); Mean Corpuscular Volume 86.5 fL (80-100); Monocytes Absolute Auto 700 /uL (0-900); Monocytes Percent Auto 8.3 % (3-14); Neutrophils Absolute Auto 6100 /uL (1500-7000); Neutrophils Percent Auto 78.6 % (50-75); Platelet Count 219 X10^3/uL (150-400); Red Blood Cell Count 5.33 X10^6/uL (4.0-5.2); Red Cell Distribution Width 14.3 % (11.6-14.8); White Blood Cell Count 7.8 X10^3/uL (4.5-11.0)
[2022-09-22 08:44] LABS: Appearance Urine UA CLEAR; Bilirubin Urine UA NEGATIVE (NEGATIVE); Color Urine UA YELLOW; Glucose Urine UA 3+ g/dL (Negative); Ketones Urine UA NEGATIVE (NEGATIVE); Leukocyte Esterase Urine UA NEGATIVE (NEGATIVE); Nitrite Urine UA NEGATIVE (Negative); Occult Blood Urine UA NEGATIVE (Negative); Protein Urine UA NEGATIVE (Negative); Urobilinogen Urine UA 0.2 E.U./dL (0.2)
[2022-09-22 08:51] LABS: pH Urine UA 5.5 (4.5-8.0)
[2022-09-22 08:52] LABS: Bacteria Urine None Seen; Culture Indicated Urine Cult Not Indicated; RBC Urine None Seen (0-5/HPF); Urine Comments Microscopic Normal; WBC Urine None Seen (0-5/HPF)
[2022-09-22 09:16] LABS: Alanine Aminotransferase 26 IU/L (<35); Albumin 3.9 g/dL (3.5-5.0); Albumin Globulin Ratio 1.6 (1.0-2.8); Alkaline Phosphatase 98 U/L (38-126); Aspartate Aminotransferase 25 IU/L (14-36); BUN Creatinine Ratio 32.2 (6-22); Bilirubin Total 0.7 mg/dL (0.2-1.3); Blood Urea Nitrogen 19 mg/dL (7-17); Calcium 9.7 mg/dL (8.4-10.2); Carbon Dioxide 24 mmol/L (22-32); Chloride 105 mmol/L (98-107); Estimated Glomerular Filt Rate > 60 mL/min (>60); Globulin 2.4 g/dL (1.7-4.1); Glucose 144 mg/dL (80-110); HEMOLYSIS < 15 (0-50); Magnesium 1.4 mg/dL (1.6-2.3); Phosphorous 3.6 mg/dL (2.8-4.1); Sodium 138 mmol/L (137-145); Total Protein 6.3 g/dL (6.3-8.2)
[2022-09-22 09:20] LABS: Creatinine Urine Random 63.4 mg/dL; Protein (Total) Urine Random 25 mg/dL (0-12); Protein Creatinine Ratio Urine 0.39 GRAM/24H
[2022-09-23 10:37] LABS: Tacrolimus 4.8 ng/mL (2.0-20.0)
== END ==
PROVIDERS: Family Provider Student in an Organized Health Care Education/Training Program; PCP Student in an Organized Health Care Education/Training Program; Referring Provider Internal Medicine Nephrology; Visit Provider Internal Medicine Nephrology
DX: Z94.0 Kidney transplant status (principal); Z48.298 Encounter for aftercare following other organ transplant; T86.90 Unspecified complication of unspecified transplanted organ and tissue; B34.9 Viral infection, unspecified; N39.0 Urinary tract infection, site not specified; E83.40 Disorders of magnesium metabolism, unspecified; E55.9 Vitamin D deficiency, unspecified
CPT/HCPCS: 36415; 80053; 80197; 81001; 82570; 83735; 84100; 84156; 85025; 87799

== ENCOUNTER → 2022-10-11 07:04 | Outpatient (CLI) | payer MEDICARE, OTHER, SELFPAY ==
[2022-10-11 08:24] LABS: Appearance Urine UA CLEAR; Bilirubin Urine UA NEGATIVE (NEGATIVE); Color Urine UA YELLOW; Glucose Urine UA 2+ g/dL (Negative); Ketones Urine UA 2+ (NEGATIVE); Leukocyte Esterase Urine UA NEGATIVE (NEGATIVE); Nitrite Urine UA NEGATIVE (Negative); Occult Blood Urine UA NEGATIVE (Negative); Protein Urine UA NEGATIVE (Negative); Urobilinogen Urine UA 0.2 E.U./dL (0.2)
[2022-10-11 08:28] LABS: Add Manual Diff / Slide Review NO; Basophils Absolute Auto 0 /uL (0-100); Basophils Percent Auto 0.6 % (0-2); Eosinophils Absolute Auto 200 /uL (0-450); Eosinophils Percent Auto 3.2 % (2-4); Hematocrit 47.5 % (36-46); Lymphocytes Absolute Auto 900 /uL (1100-4500); Lymphocytes Percent Auto 11.3 % (25-40); Mean Corpuscular HGB Conc 33.7 % (30-36); Mean Corpuscular Volume 85.9 fL (80-100); Monocytes Absolute Auto 700 /uL (0-900); Monocytes Percent Auto 8.6 % (3-14); Neutrophils Absolute Auto 5900 /uL (1500-7000); Neutrophils Percent Auto 76.3 % (50-75); Platelet Count 215 X10^3/uL (150-400); Red Blood Cell Count 5.53 X10^6/uL (4.0-5.2); Red Cell Distribution Width 14.5 % (11.6-14.8); White Blood Cell Count 7.7 X10^3/uL (4.5-11.0)
[2022-10-11 08:30] LABS: RBC Urine None Seen (0-5/HPF); WBC Urine None Seen (0-5/HPF)
[2022-10-11 08:31] LABS: Bacteria Urine None Seen; Culture Indicated Urine Cult Not Indicated; Urine Comments Microscopic Normal
[2022-10-11 08:43] LABS: Alanine Aminotransferase 30 IU/L (<35); Albumin 3.8 g/dL (3.5-5.0); Albumin Globulin Ratio 1.3 (1.0-2.8); Alkaline Phosphatase 104 U/L (38-126); Aspartate Aminotransferase 31 IU/L (14-36); BUN Creatinine Ratio 33.3 (6-22); Bilirubin Total 0.9 mg/dL (0.2-1.3); Blood Urea Nitrogen 17 mg/dL (7-17); Calcium 9.5 mg/dL (8.4-10.2); Carbon Dioxide 22 mmol/L (22-32); Chloride 105 mmol/L (98-107); Estimated Glomerular Filt Rate > 60 mL/min (>60); Glucose 123 mg/dL (80-110); HEMOLYSIS < 15 (0-50); Magnesium 1.3 mg/dL (1.6-2.3); Phosphorous 3.6 mg/dL (2.8-4.1); Potassium 3.5 mmol/L (3.4-5.1); Sodium 138 mmol/L (137-145); Total Protein 6.8 g/dL (6.3-8.2)
[2022-10-11 08:46] LABS: Protein (Total) Urine Random 24 mg/dL (0-12); Protein Creatinine Ratio Urine 0.42 GRAM/24H
[2022-10-14 09:38] LABS: Parathyroid Hormone Int 84 pg/mL (15-65)
== END ==
PROVIDERS: Family Provider Student in an Organized Health Care Education/Training Program; PCP Student in an Organized Health Care Education/Training Program; Referring Provider Internal Medicine Nephrology; Visit Provider Internal Medicine Nephrology
DX: Z94.0 Kidney transplant status (principal); Z48.298 Encounter for aftercare following other organ transplant; T86.90 Unspecified complication of unspecified transplanted organ and tissue; B34.9 Viral infection, unspecified; N39.0 Urinary tract infection, site not specified
CPT/HCPCS: 80053; 80197; 81001; 82570; 83735; 83970; 84100; 84156; 85025; 87799

== ENCOUNTER → 2022-11-08 06:58 | Outpatient (CLI) | payer MEDICARE, OTHER, SELFPAY ==
[2022-11-08 07:33] LABS: Appearance Urine UA SL CLOUDY; Bilirubin Urine UA NEGATIVE (NEGATIVE); Color Urine UA YELLOW; Glucose Urine UA 3+ g/dL (Negative); Ketones Urine UA NEGATIVE (NEGATIVE); Leukocyte Esterase Urine UA NEGATIVE (NEGATIVE); Nitrite Urine UA NEGATIVE (Negative); Occult Blood Urine UA NEGATIVE (Negative); Protein Urine UA NEGATIVE (Negative); Specific Gravity Urine UA 1.015 (1.000-1.035); Urobilinogen Urine UA 0.2 E.U./dL (0.2)
[2022-11-08 07:41] LABS: RBC Urine None Seen (0-5/HPF); WBC Urine None Seen (0-5/HPF)
[2022-11-08 07:42] LABS: Amorphous Sediment Urine 3+; Bacteria Urine None Seen; Culture Indicated Urine Cult Not Indicated
[2022-11-08 08:32] LABS: Add Manual Diff / Slide Review NO; Basophils Absolute Auto 0 /uL (0-100); Basophils Percent Auto 0.7 % (0-2); Eosinophils Absolute Auto 200 /uL (0-450); Eosinophils Percent Auto 3.8 % (2-4); Hematocrit 46.4 % (36-46); Hemoglobin 15.6 g/dL (12.0-16.0); Lymphocytes Absolute Auto 900 /uL (1100-4500); Lymphocytes Percent Auto 15.2 % (25-40); Mean Corpuscular HGB Conc 33.5 % (30-36); Mean Corpuscular Hemoglobin 28.9 PG (26-34); Monocytes Absolute Auto 600 /uL (0-900); Monocytes Percent Auto 10.9 % (3-14); Neutrophils Absolute Auto 4100 /uL (1500-7000); Neutrophils Percent Auto 69.4 % (50-75); Platelet Count 231 X10^3/uL (150-400); Red Blood Cell Count 5.39 X10^6/uL (4.0-5.2); Red Cell Distribution Width 14.1 % (11.6-14.8)
[2022-11-08 09:12] LABS: Alanine Aminotransferase 32 IU/L (<35); Albumin 4.2 g/dL (3.5-5.0); Albumin Globulin Ratio 1.4 (1.0-2.8); Alkaline Phosphatase 85 U/L (38-126); Aspartate Aminotransferase 38 IU/L (14-36); Bilirubin Total 0.9 mg/dL (0.2-1.3); Blood Urea Nitrogen 20 mg/dL (7-17); Calcium 9.1 mg/dL (8.4-10.2); Carbon Dioxide 22 mmol/L (22-32); Chloride 105 mmol/L (98-107); Estimated Glomerular Filt Rate > 60 mL/min (>60); Globulin 2.9 g/dL (1.7-4.1); Glucose 116 mg/dL (80-110); Magnesium 1.4 mg/dL (1.6-2.3); Phosphorous 3.7 mg/dL (2.8-4.1); Potassium 3.5 mmol/L (3.4-5.1); Sodium 140 mmol/L (137-145); Total Protein 7.1 g/dL (6.3-8.2)
[2022-11-08 09:19] LABS: HEMOLYSIS 98 (0-50)
[2022-11-18 11:11] LABS: Tacrolimus 10.1
== END ==
PROVIDERS: Family Provider Student in an Organized Health Care Education/Training Program; PCP Student in an Organized Health Care Education/Training Program; Referring Provider Internal Medicine Nephrology; Visit Provider Internal Medicine Nephrology
DX: Z94.0 Kidney transplant status (principal); Z48.298 Encounter for aftercare following other organ transplant; T86.90 Unspecified complication of unspecified transplanted organ and tissue; E83.40 Disorders of magnesium metabolism, unspecified; N39.0 Urinary tract infection, site not specified
CPT/HCPCS: 36415; 80053; 80197; 81001; 83735; 84100; 85025

== ENCOUNTER → 2022-11-22 07:22 | Outpatient (CLI) | payer MEDICARE, OTHER, SELFPAY ==
[2022-11-22 08:58] LABS: Add Manual Diff / Slide Review NO; Basophils Absolute Auto 0 /uL (0-100); Basophils Percent Auto 0.6 % (0-2); Eosinophils Absolute Auto 200 /uL (0-450); Eosinophils Percent Auto 3.9 % (2-4); Hemoglobin 15.5 g/dL (12.0-16.0); Lymphocytes Absolute Auto 800 /uL (1100-4500); Mean Corpuscular HGB Conc 33.7 % (30-36); Mean Corpuscular Hemoglobin 28.9 PG (26-34); Mean Corpuscular Volume 85.7 fL (80-100); Monocytes Absolute Auto 600 /uL (0-900); Neutrophils Absolute Auto 4800 /uL (1500-7000); Neutrophils Percent Auto 74.5 % (50-75); Platelet Count 226 X10^3/uL (150-400); Red Blood Cell Count 5.37 X10^6/uL (4.0-5.2); Red Cell Distribution Width 13.8 % (11.6-14.8); White Blood Cell Count 6.4 X10^3/uL (4.5-11.0)
[2022-11-22 09:27] LABS: Alanine Aminotransferase 28 IU/L (<35); Albumin 3.9 g/dL (3.5-5.0); Albumin Globulin Ratio 1.7 (1.0-2.8); Alkaline Phosphatase 97 U/L (38-126); Aspartate Aminotransferase 28 IU/L (14-36); BUN Creatinine Ratio 30.9 (6-22); Bilirubin Total 0.6 mg/dL (0.2-1.3); Blood Urea Nitrogen 17 mg/dL (7-17); Calcium 9.6 mg/dL (8.4-10.2); Carbon Dioxide 26 mmol/L (22-32); Chloride 106 mmol/L (98-107); Estimated Glomerular Filt Rate > 60 mL/min (>60); Globulin 2.3 g/dL (1.7-4.1); Glucose 120 mg/dL (80-110); HEMOLYSIS < 15 (0-50); Magnesium 1.4 mg/dL (1.6-2.3); Phosphorous 3.6 mg/dL (2.8-4.1); Potassium 3.4 mmol/L (3.4-5.1); Sodium 140 mmol/L (137-145); Total Protein 6.2 g/dL (6.3-8.2)
== END ==
PROVIDERS: Family Provider Student in an Organized Health Care Education/Training Program; PCP Student in an Organized Health Care Education/Training Program; Referring Provider Internal Medicine Nephrology; Visit Provider Internal Medicine Nephrology
DX: Z94.0 Kidney transplant status (principal); T86.90 Unspecified complication of unspecified transplanted organ and tissue; Z48.298 Encounter for aftercare following other organ transplant; E83.40 Disorders of magnesium metabolism, unspecified; N39.0 Urinary tract infection, site not specified
CPT/HCPCS: 36415; 80053; 80197; 83735; 84100; 85025

== ENCOUNTER → 2023-01-11 07:24 | Outpatient (CLI) | payer MEDICARE, OTHER, SELFPAY ==
[2023-01-11 08:04] LABS: Add Manual Diff / Slide Review NO; Basophils Absolute Auto 0 /uL (0-100); Basophils Percent Auto 0.6 % (0-2); Eosinophils Absolute Auto 200 /uL (0-450); Eosinophils Percent Auto 3.9 % (2-4); Hematocrit 46.5 % (36-46); Hemoglobin 15.7 g/dL (12.0-16.0); Lymphocytes Absolute Auto 900 /uL (1100-4500); Lymphocytes Percent Auto 15.1 % (25-40); Mean Corpuscular HGB Conc 33.7 % (30-36); Mean Corpuscular Hemoglobin 29.2 PG (26-34); Mean Corpuscular Volume 86.9 fL (80-100); Monocytes Absolute Auto 500 /uL (0-900); Monocytes Percent Auto 9.1 % (3-14); Neutrophils Absolute Auto 4300 /uL (1500-7000); Neutrophils Percent Auto 71.3 % (50-75); Platelet Count 238 X10^3/uL (150-400); Red Blood Cell Count 5.35 X10^6/uL (4.0-5.2); Red Cell Distribution Width 13.6 % (11.6-14.8)
[2023-01-11 08:05] LABS: Appearance Urine UA CLEAR; Bilirubin Urine UA NEGATIVE (NEGATIVE); Color Urine UA YELLOW; Glucose Urine UA 3+ g/dL (Negative); Ketones Urine UA NEGATIVE (NEGATIVE); Leukocyte Esterase Urine UA NEGATIVE (NEGATIVE); Nitrite Urine UA NEGATIVE (Negative); Occult Blood Urine UA NEGATIVE (Negative); Protein Urine UA NEGATIVE (Negative); Urobilinogen Urine UA 0.2 E.U./dL (0.2)
[2023-01-11 08:12] LABS: Bacteria Urine Occasional (0-1); Culture Indicated Urine Cult Not Indicated; RBC Urine 1-5/HPF (0-5/HPF); Squamous Epithelial Cell Urine 1-5 /HPF (0-5/HPF); WBC Urine 1-5/HPF (0-5/HPF)
[2023-01-11 08:25] LABS: Alanine Aminotransferase 28 IU/L (<35); Albumin 3.9 g/dL (3.5-5.0); Albumin Globulin Ratio 1.7 (1.0-2.8); Alkaline Phosphatase 93 U/L (38-126); Aspartate Aminotransferase 28 IU/L (14-36); BUN Creatinine Ratio 30.4 (6-22); Bilirubin Total 0.5 mg/dL (0.2-1.3); Blood Urea Nitrogen 17 mg/dL (7-17); Calcium 9.7 mg/dL (8.4-10.2); Carbon Dioxide 27 mmol/L (22-32); Chloride 104 mmol/L (98-107); Estimated Glomerular Filt Rate > 60 mL/min (>60); Globulin 2.3 g/dL (1.7-4.1); Glucose 108 mg/dL (80-110); HEMOLYSIS 18 (0-50); Magnesium 1.6 mg/dL (1.6-2.3); Phosphorous 3.9 mg/dL (2.8-4.1); Potassium 3.6 mmol/L (3.4-5.1); Sodium 139 mmol/L (137-145); Total Protein 6.2 g/dL (6.3-8.2)
[2023-01-11 08:41] LABS: Creatinine Urine Random 77.1 mg/dL; Protein (Total) Urine Random 20 mg/dL (0-12); Protein Creatinine Ratio Urine 0.25 GRAM/24H
[2023-01-13 07:19] LABS: Parathyroid Hormone Int 73 pg/mL (15-65)
[2023-01-13 07:30] LABS: Tacrolimus 6.4
== END ==
PROVIDERS: Family Provider Student in an Organized Health Care Education/Training Program; PCP Pediatrics; Referring Provider Student in an Organized Health Care Education/Training Program; Visit Provider Student in an Organized Health Care Education/Training Program
DX: D70.9 Neutropenia, unspecified (principal); N25.81 Secondary hyperparathyroidism of renal origin; D63.1 Anemia in chronic kidney disease; N05.9 Unspecified nephritic syndrome with unspecified morphologic changes; E83.30 Disorder of phosphorus metabolism, unspecified; E83.40 Disorders of magnesium metabolism, unspecified; T86.10 Unspecified complication of kidney transplant; N30.00 Acute cystitis without hematuria; R80.9 Proteinuria, unspecified
CPT/HCPCS: 36415; 80053; 80197; 81001; 82570; 83735; 83970; 84100; 84156; 85025

== ENCOUNTER → 2023-01-27 07:28 | Outpatient (CLI) | payer MEDICARE, OTHER, SELFPAY ==
[2023-02-06 11:02] LABS: Tacrolimus 7.9
== END ==
PROVIDERS: Family Provider Student in an Organized Health Care Education/Training Program; PCP Pediatrics; Referring Provider Student in an Organized Health Care Education/Training Program; Visit Provider Student in an Organized Health Care Education/Training Program
DX: T86.10 Unspecified complication of kidney transplant (principal)
CPT/HCPCS: 36415; 80197

== ENCOUNTER → 2023-02-14 07:40 | Outpatient (CLI) | payer MEDICARE, OTHER, SELFPAY ==
[2023-02-22 09:49] LABS: Tacrolimus 4.9
== END ==
PROVIDERS: Family Provider Student in an Organized Health Care Education/Training Program; PCP Pediatrics; Referring Provider Internal Medicine Nephrology; Visit Provider Internal Medicine Nephrology
DX: Z94.0 Kidney transplant status (principal); T86.90 Unspecified complication of unspecified transplanted organ and tissue; Z48.298 Encounter for aftercare following other organ transplant; E83.40 Disorders of magnesium metabolism, unspecified
CPT/HCPCS: 36415; 80197

== ENCOUNTER → 2023-03-09 08:14 | Outpatient (CLI) | payer MEDICARE, OTHER, SELFPAY ==
[2023-03-09 09:14] LABS: Add Manual Diff / Slide Review NO; Basophils Absolute Auto 100 /uL (0-100); Basophils Percent Auto 0.7 % (0-2); Eosinophils Absolute Auto 300 /uL (0-450); Eosinophils Percent Auto 4.2 % (2-4); Hematocrit 47.7 % (36-46); Lymphocytes Absolute Auto 1400 /uL (1100-4500); Lymphocytes Percent Auto 17.5 % (25-40); Mean Corpuscular HGB Conc 33.5 % (30-36); Mean Corpuscular Hemoglobin 29.4 PG (26-34); Mean Corpuscular Volume 87.7 fL (80-100); Monocytes Absolute Auto 700 /uL (0-900); Monocytes Percent Auto 7.9 % (3-14); Neutrophils Absolute Auto 5800 /uL (1500-7000); Neutrophils Percent Auto 69.7 % (50-75); Platelet Count 242 X10^3/uL (150-400); Red Blood Cell Count 5.44 X10^6/uL (4.0-5.2); Red Cell Distribution Width 14.5 % (11.6-14.8); White Blood Cell Count 8.2 X10^3/uL (4.5-11.0)
[2023-03-09 09:39] LABS: Appearance Urine UA CLEAR; Bilirubin Urine UA NEGATIVE (NEGATIVE); Color Urine UA YELLOW; Glucose Urine UA 3+ g/dL (Negative); Ketones Urine UA TRACE (NEGATIVE); Leukocyte Esterase Urine UA NEGATIVE (NEGATIVE); Nitrite Urine UA NEGATIVE (Negative); Occult Blood Urine UA NEGATIVE (Negative); Protein Urine UA NEGATIVE (Negative); Urobilinogen Urine UA 0.2 E.U./dL (0.2)
[2023-03-09 09:41] LABS: pH Urine UA 6.5 (4.5-8.0)
[2023-03-09 09:47] LABS: Alanine Aminotransferase 24 IU/L (<35); Albumin 4.1 g/dL (3.5-5.0); Albumin Globulin Ratio 1.7 (1.0-2.8); Alkaline Phosphatase 84 U/L (38-126); Aspartate Aminotransferase 28 IU/L (14-36); BUN Creatinine Ratio 22.4 (6-22); Blood Urea Nitrogen 13 mg/dL (7-17); Calcium 9.8 mg/dL (8.4-10.2); Carbon Dioxide 22 mmol/L (22-32); Chloride 106 mmol/L (98-107); Estimated Glomerular Filt Rate > 60 mL/min (>60); Globulin 2.4 g/dL (1.7-4.1); Glucose 156 mg/dL (80-110); HEMOLYSIS < 15 (0-50); Magnesium 1.5 mg/dL (1.6-2.3); Phosphorous 4.1 mg/dL (2.8-4.1); Potassium 3.9 mmol/L (3.4-5.1); Sodium 139 mmol/L (137-145); Total Protein 6.5 g/dL (6.3-8.2)
[2023-03-09 10:20] LABS: Creatinine Urine Random 77.7 mg/dL; Protein (Total) Urine Random 21 mg/dL (0-12); Protein Creatinine Ratio Urine 0.27 GRAM/24H
[2023-03-09 11:09] LABS: Amorphous Sediment Urine 2+; Bacteria Urine None Seen; Culture Indicated Urine Cult Not Indicated; RBC Urine None Seen (0-5/HPF); Squamous Epithelial Cell Urine None Seen (0-5/HPF); WBC Urine 1-5/HPF (0-5/HPF)
[2023-03-10 09:21] LABS: Parathyroid Hormone Int 76 pg/mL (15-65)
[2023-03-20 14:24] LABS: Tacrolimus 4.3
== END ==
PROVIDERS: Family Provider Student in an Organized Health Care Education/Training Program; PCP Pediatrics; Referring Provider Student in an Organized Health Care Education/Training Program; Visit Provider Student in an Organized Health Care Education/Training Program
DX: D70.9 Neutropenia, unspecified (principal); N25.81 Secondary hyperparathyroidism of renal origin; D63.1 Anemia in chronic kidney disease; N05.9 Unspecified nephritic syndrome with unspecified morphologic changes; E83.40 Disorders of magnesium metabolism, unspecified; E83.30 Disorder of phosphorus metabolism, unspecified; N30.00 Acute cystitis without hematuria; R80.9 Proteinuria, unspecified
CPT/HCPCS: 36415; 80053; 80197; 81001; 82570; 83735; 83970; 84100; 84156; 85025

== ENCOUNTER → 2023-03-09 10:26 | Outpatient (CLI) | payer MEDICARE, OTHER, SELFPAY ==
--- NOTE | 2023-03-09 10:28 | DI.RAD.S_ITS ---
PROCEDURE: XR LUMBAR SPINE 2-3V INDICATIONS: eval back pain TECHNIQUE: 3 views of the lumbar spine were acquired. COMPARISON: [facility], , L-SPINE 4V PLUS BENDING, 01/31/2008, 11:57. FINDINGS: Bones: 5 [id number]-tcaderq vertebrae are present. There is normal bony alignment. No vertebral body compression fractures. No suspicious bony lesions. Degenerative disc space narrowing and hypertrophic facet joints noted the lower lumbar spine Soft tissues: Overlying bowel gas pattern is normal. No suspicious soft tissue calcifications. Surgical clips in the right upper quadrant and right hemipelvis noted. Atherosclerotic calcification in the abdominal aorta noted without evidence of aneurysm. 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 Aortic atherosclerosis without aneurysm Approved by: Hardeep Echols M.D. on 03/09/2023 at 15:56
== END ==
PROVIDERS: Family Provider Student in an Organized Health Care Education/Training Program; PCP Family Medicine; Referring Provider Family Medicine; Visit Provider Family Medicine
DX: M48.061 Spinal stenosis, lumbar region without neurogenic claudication (principal); M47.816 Spondylosis without myelopathy or radiculopathy, lumbar region; M51.36 Other intervertebral disc degeneration, lumbar region; I70.0 Atherosclerosis of aorta; M54.9 Dorsalgia, unspecified
CPT/HCPCS: 72100

== ENCOUNTER → 2023-04-05 12:46 | Outpatient (CLI) | payer MEDICARE, OTHER, SELFPAY ==
--- NOTE | 2023-04-05 12:47 | DI.US.S_ITS ---
PROCEDURE: US THYROID INDICATIONS: FOLLOW UP THRYOID NODULES. FIRST ULTRASOUND SINCE FNA. TECHNIQUE: Real-time scanning was performed of the thyroid gland, with image documentation. COMPARISON: [facility], US, US THYROID, 07/13/2020, 14:15. FINDINGS: Right: Thyroid lobe measures 5.6 x 1.2 x 2.5 cm, and is homogeneous in echotexture. Left: Thyroid lobe measures 7.7 x 4.1 x 2.9 cm, and is homogenous in echotexture. Isthmus: 4.6 mm thick. Nodule number: 1 Location: Right superior/anterior Size: 1.2 x 1.1 x 0.8 cm, previously 1.8 x 1.4 x 0.9 cm. Composition: Solid Echogenicity: Isoechoic Shape: wider than tall. Margins: Smooth Echogenic foci: Punctate Total points: 6 ACR TI-RADS category: 4 Nodule number: 2 Location: Left superior Size: 4.9 x 3.5 x 2.9 cm, previously 3.8 x 3.1 x 2.6 cm. Composition: Solid Echogenicity: Isoechoic Shape: wider than tall. Margins: Smooth Echogenic foci: Non Total points: 3 ACR TI-RADS category: 3 Nodule number: 3 Location: Left mid Size: 2.1 x 1.6 x 1.5, previously 1.7 x 1.5 x 1.6 cm. Composition: Solid Echogenicity: Hypoechoic Shape: wider than tall. Margins: Smooth Echogenic foci: Peripheral calcifications Total points: 6 ACR TI-RADS category: 4 Nodule number: 4 Location: Left inferior Size: 0.7 x 0.8 cm, previously 1.4 x 1.3 x 1.2 cm. Composition: Solid Echogenicity: Hypoechoic Shape: wider than tall. Margins: Smooth Echogenic foci: Peripheral calcification Total points: 6 ACR TI-RADS category: 4 IMPRESSION: Multinodular goiter. Best practice guidelines suggest FNA or biopsy nodules 2 and 3 if not done previously ACR TI-RADS definitions and recommendations: TI-RADS 1 (benign): 0 points. FNA not needed. TI-RADS 2 (not suspicious): 2 points. FNA not needed. TI-RADS 3 (mildly suspicious): 3 points. * FNA if 2.5 cm or larger, follow up if 1.5 cm or larger (at 1, 3, and 5 years). TI-RADS 4 (moderately suspicious): 4-6 points. * FNA if 1.5 cm or larger, follow up if 1 cm or larger (at 1, 2, 3, and 5 years). TI-RADS 5 (highly suspicious): 7 points or more. * FNA if 1 cm or larger, follow up if 0.5 cm or larger (every year for 5 years). Approved by: Hardeep Echols M.D. on 04/05/2023 at 17:51
== END ==
PROVIDERS: Family Provider Student in an Organized Health Care Education/Training Program; PCP Family Medicine; Referring Provider Family Medicine; Visit Provider Family Medicine
DX: E04.2 Nontoxic multinodular goiter (principal)
CPT/HCPCS: 76536

== ENCOUNTER → 2023-05-25 07:19 | Outpatient (CLI) | payer MEDICARE, OTHER, SELFPAY ==
[2023-05-25 08:29] LABS: Add Manual Diff / Slide Review NO; Basophils Absolute Auto 0 /uL (0-100); Basophils Percent Auto 0.5 % (0-2); Eosinophils Absolute Auto 300 /uL (0-450); Eosinophils Percent Auto 3.7 % (2-4); Hematocrit 48.7 % (36-46); Hemoglobin 16.5 g/dL (12.0-16.0); Lymphocytes Absolute Auto 1200 /uL (1100-4500); Lymphocytes Percent Auto 14.3 % (25-40); Mean Corpuscular HGB Conc 33.9 % (30-36); Mean Corpuscular Volume 88.4 fL (80-100); Monocytes Absolute Auto 600 /uL (0-900); Monocytes Percent Auto 7.2 % (3-14); Neutrophils Absolute Auto 6200 /uL (1500-7000); Neutrophils Percent Auto 74.3 % (50-75); Platelet Count 233 X10^3/uL (150-400); Red Blood Cell Count 5.51 X10^6/uL (4.0-5.2); White Blood Cell Count 8.3 X10^3/uL (4.5-11.0)
[2023-05-25 08:44] LABS: Magnesium 1.7 mg/dL (1.6-2.3); Phosphorous 3.6 mg/dL (2.8-4.1)
[2023-05-25 08:49] LABS: Alanine Aminotransferase 30 IU/L (<35); Albumin 4.1 g/dL (3.5-5.0); Albumin Globulin Ratio 1.4 (1.0-2.8); Alkaline Phosphatase 99 U/L (38-126); Aspartate Aminotransferase 34 IU/L (14-36); BUN Creatinine Ratio 25.9 (6-22); Bilirubin Total 0.8 mg/dL (0.2-1.3); Blood Urea Nitrogen 15 mg/dL (7-17); Carbon Dioxide 21 mmol/L (22-32); Chloride 106 mmol/L (98-107); Estimated Glomerular Filt Rate > 60 mL/min (>60); Globulin 2.9 g/dL (1.7-4.1); Glucose 130 mg/dL (80-110); HEMOLYSIS 29 (0-50); Potassium 3.5 mmol/L (3.4-5.1); Sodium 139 mmol/L (137-145)
[2023-05-25 08:55] LABS: Hemoglobin A1C% w Est Avg Glu 5.6 % (4.0-6.0)
[2023-05-25 09:20] LABS: Bilirubin Urine UA NEGATIVE (NEGATIVE); Glucose Urine UA 3+ g/dL (Negative); Ketones Urine UA NEGATIVE (NEGATIVE); Leukocyte Esterase Urine UA NEGATIVE (NEGATIVE); Nitrite Urine UA NEGATIVE (Negative); Occult Blood Urine UA NEGATIVE (Negative); Protein Urine UA NEGATIVE (Negative); Specific Gravity Urine UA 1.025 (1.000-1.035); Urobilinogen Urine UA 0.2 E.U./dL (0.2)
[2023-05-25 09:37] LABS: Appearance Urine UA Clear; Color Urine UA Yellow; RBC Urine None Seen (0-5/HPF); WBC Urine 0-1/HPF (0-5/HPF); pH Urine UA 5.5 (4.5-8.0)
[2023-05-25 09:38] LABS: Bacteria Urine Few (2-10); Culture Indicated Urine Cult Not Indicated; Squamous Epithelial Cell Urine 0-1 /HPF (0-5/HPF)
[2023-05-25 09:58] LABS: Creatinine Urine Random 58.7 mg/dL; Protein (Total) Urine Random 25 mg/dL (0-12); Protein Creatinine Ratio Urine 0.42 GRAM/24H
[2023-05-26 09:37] LABS: Tacrolimus 5.3
[2023-05-26 12:06] LABS: Parathyroid Hormone Int 81 pg/mL (15-65)
== END ==
PROVIDERS: Family Provider Student in an Organized Health Care Education/Training Program; PCP Family Medicine; Referring Provider Student in an Organized Health Care Education/Training Program; Visit Provider Student in an Organized Health Care Education/Training Program
DX: R73.9 Hyperglycemia, unspecified (principal); D70.9 Neutropenia, unspecified; N25.81 Secondary hyperparathyroidism of renal origin; D63.1 Anemia in chronic kidney disease; N05.9 Unspecified nephritic syndrome with unspecified morphologic changes; T86.10 Unspecified complication of kidney transplant; E83.30 Disorder of phosphorus metabolism, unspecified; E83.40 Disorders of magnesium metabolism, unspecified; N30.00 Acute cystitis without hematuria; R80.9 Proteinuria, unspecified
CPT/HCPCS: 36415; 80053; 80197; 81001; 82570; 83036; 83735; 83970; 84100; 84156; 85025

== ENCOUNTER → 2023-07-06 08:05 | Outpatient (CLI) | payer MEDICARE, OTHER, SELFPAY ==
[2023-07-06 09:24] LABS: Add Manual Diff / Slide Review NO; Basophils Absolute Auto 0 /uL (0-100); Basophils Percent Auto 0.7 % (0-2); Eosinophils Absolute Auto 300 /uL (0-450); Eosinophils Percent Auto 5.1 % (2-4); Hematocrit 46.9 % (36-46); Hemoglobin 15.8 g/dL (12.0-16.0); Lymphocytes Absolute Auto 1100 /uL (1100-4500); Lymphocytes Percent Auto 17.3 % (25-40); Mean Corpuscular HGB Conc 33.6 % (30-36); Mean Corpuscular Hemoglobin 29.5 PG (26-34); Mean Corpuscular Volume 87.9 fL (80-100); Monocytes Absolute Auto 600 /uL (0-900); Monocytes Percent Auto 8.9 % (3-14); Neutrophils Absolute Auto 4400 /uL (1500-7000); Platelet Count 243 X10^3/uL (150-400); Red Blood Cell Count 5.34 X10^6/uL (4.0-5.2); Red Cell Distribution Width 13.4 % (11.6-14.8); White Blood Cell Count 6.5 X10^3/uL (4.5-11.0)
[2023-07-06 09:51] LABS: Alanine Aminotransferase 30 IU/L (<35); Albumin 3.7 g/dL (3.5-5.0); Albumin Globulin Ratio 1.5 (1.0-2.8); Alkaline Phosphatase 94 U/L (38-126); Aspartate Aminotransferase 34 IU/L (14-36); BUN Creatinine Ratio 24.5 (6-22); Bilirubin Total 0.8 mg/dL (0.2-1.3); Blood Urea Nitrogen 12 mg/dL (7-17); Calcium 9.9 mg/dL (8.4-10.2); Carbon Dioxide 19 mmol/L (22-32); Chloride 109 mmol/L (98-107); Estimated Glomerular Filt Rate > 60 mL/min (>60); Globulin 2.5 g/dL (1.7-4.1); Glucose 141 mg/dL (80-110); HEMOLYSIS < 15 (0-50); Magnesium 1.5 mg/dL (1.6-2.3); Potassium 3.7 mmol/L (3.4-5.1); Sodium 138 mmol/L (137-145); Total Protein 6.2 g/dL (6.3-8.2)
[2023-07-06 10:58] LABS: Appearance Urine UA CLEAR; Bilirubin Urine UA NEGATIVE (NEGATIVE); Color Urine UA YELLOW; Glucose Urine UA 3+ g/dL (Negative); Ketones Urine UA NEGATIVE (NEGATIVE); Leukocyte Esterase Urine UA NEGATIVE (NEGATIVE); Nitrite Urine UA NEGATIVE (Negative); Occult Blood Urine UA NEGATIVE (Negative); Protein Urine UA NEGATIVE (Negative); Urobilinogen Urine UA 0.2 E.U./dL (0.2)
[2023-07-06 11:08] LABS: Bacteria Urine Occasional (0-1); Culture Indicated Urine Cult Not Indicated; RBC Urine 0-1/HPF (0-5/HPF); Squamous Epithelial Cell Urine 0-1 /HPF (0-5/HPF); WBC Urine 0-1/HPF (0-5/HPF)
[2023-07-06 15:57] LABS: Creatinine Urine Random 55.3 mg/dL; Protein (Total) Urine Random 21 mg/dL (0-12); Protein Creatinine Ratio Urine 0.37 GRAM/24H
[2023-07-08 07:31] LABS: Parathyroid Hormone Int 67 pg/mL (15-65)
[2023-07-11 09:27] LABS: Tacrolimus 5.3
== END ==
PROVIDERS: Family Provider Student in an Organized Health Care Education/Training Program; PCP Family Medicine; Referring Provider Student in an Organized Health Care Education/Training Program; Visit Provider Student in an Organized Health Care Education/Training Program
DX: D70.9 Neutropenia, unspecified (principal); N25.81 Secondary hyperparathyroidism of renal origin; D63.1 Anemia in chronic kidney disease; N05.9 Unspecified nephritic syndrome with unspecified morphologic changes; T86.10 Unspecified complication of kidney transplant; D64.9 Anemia, unspecified; E83.40 Disorders of magnesium metabolism, unspecified; E83.30 Disorder of phosphorus metabolism, unspecified; N30.00 Acute cystitis without hematuria; R80.9 Proteinuria, unspecified
CPT/HCPCS: 36415; 80053; 80197; 81001; 82570; 83735; 83970; 84100; 84156; 85025

== ENCOUNTER → 2023-09-26 07:35 | Outpatient (CLI) | payer MEDICARE, OTHER, SELFPAY ==
[2023-09-26 08:35] LABS: Hematocrit 47.6 % (36-46); Hemoglobin 15.9 g/dL (12.0-16.0); Mean Corpuscular HGB Conc 33.5 % (30-36); Mean Corpuscular Hemoglobin 29.5 PG (26-34); Mean Corpuscular Volume 88.1 fL (80-100); Platelet Count 203 X10^3/uL (150-400); Red Blood Cell Count 5.41 X10^6/uL (4.0-5.2); Red Cell Distribution Width 14.5 % (11.6-14.8); White Blood Cell Count 5.9 X10^3/uL (4.5-11.0)
[2023-09-26 08:43] LABS: Hemoglobin A1C% w Est Avg Glu 5.4 % (4.0-6.0)
[2023-09-26 08:47] LABS: Appearance Urine UA CLEAR; Bilirubin Urine UA NEGATIVE (NEGATIVE); Color Urine UA YELLOW; Glucose Urine UA 3+ g/dL (Negative); Ketones Urine UA NEGATIVE (NEGATIVE); Leukocyte Esterase Urine UA NEGATIVE (NEGATIVE); Nitrite Urine UA NEGATIVE (Negative); Occult Blood Urine UA NEGATIVE (Negative); Protein Urine UA NEGATIVE (Negative); Specific Gravity Urine UA 1.015 (1.000-1.035); Urobilinogen Urine UA 0.2 E.U./dL (0.2)
[2023-09-26 08:48] LABS: pH Urine UA 5.5 (4.5-8.0)
[2023-09-26 08:53] LABS: Bacteria Urine None Seen; Culture Indicated Urine Cult Not Indicated; RBC Urine None Seen (0-5/HPF); Squamous Epithelial Cell Urine None Seen (0-5/HPF); Urine Volume 10mL (spun); WBC Urine None Seen (0-5/HPF)
[2023-09-26 09:12] LABS: Alanine Aminotransferase 29 IU/L (<35); Albumin 3.9 g/dL (3.5-5.0); Albumin Globulin Ratio 1.6 (1.0-2.8); Alkaline Phosphatase 96 U/L (38-126); Aspartate Aminotransferase 28 IU/L (14-36); BUN Creatinine Ratio 25.9 (6-22); Bilirubin Total 0.9 mg/dL (0.2-1.3); Blood Urea Nitrogen 14 mg/dL (7-17); Calcium 9.8 mg/dL (8.4-10.2); Carbon Dioxide 24 mmol/L (22-32); Chloride 108 mmol/L (98-107); Estimated Glomerular Filt Rate > 60 mL/min (>60); Globulin 2.5 g/dL (1.7-4.1); Glucose 122 mg/dL (80-110); HEMOLYSIS < 15 (0-50); Magnesium 1.4 mg/dL (1.6-2.3); Phosphorous 3.8 mg/dL (2.8-4.1); Potassium 3.7 mmol/L (3.4-5.1); Sodium 140 mmol/L (137-145); Total Protein 6.4 g/dL (6.3-8.2)
[2023-09-26 09:15] LABS: Creatinine Urine Random 23.3 mg/dL; Protein (Total) Urine Random 26 mg/dL (0-12); Protein Creatinine Ratio Urine 1.11 GRAM/24H
[2023-09-28 07:41] LABS: Tacrolimus 6.7
== END ==
LOC: LAB 07:37
PROVIDERS: Family Provider Student in an Organized Health Care Education/Training Program; PCP Family Medicine; Referring Provider Student in an Organized Health Care Education/Training Program; Visit Provider Student in an Organized Health Care Education/Training Program
DX: D70.9 Neutropenia, unspecified (principal); R73.9 Hyperglycemia, unspecified; I10 Essential (primary) hypertension; D63.1 Anemia in chronic kidney disease; N05.9 Unspecified nephritic syndrome with unspecified morphologic changes; E83.40 Disorders of magnesium metabolism, unspecified; E83.30 Disorder of phosphorus metabolism, unspecified; N30.00 Acute cystitis without hematuria; R80.9 Proteinuria, unspecified; T86.10 Unspecified complication of kidney transplant
CPT/HCPCS: 36415; 80053; 80197; 81001; 82570; 83036; 83735; 84100; 84156; 85027

== ENCOUNTER → 2023-11-08 07:22 | Outpatient (CLI) | payer MEDICARE, OTHER, SELFPAY ==
[2023-11-08 07:52] LABS: Appearance Urine UA CLEAR; Bilirubin Urine UA NEGATIVE (NEGATIVE); Color Urine UA YELLOW; Glucose Urine UA 3+ g/dL (Negative); Ketones Urine UA NEGATIVE (NEGATIVE); Leukocyte Esterase Urine UA NEGATIVE (NEGATIVE); Nitrite Urine UA NEGATIVE (Negative); Occult Blood Urine UA NEGATIVE (Negative); Protein Urine UA NEGATIVE (Negative); Urobilinogen Urine UA 0.2 E.U./dL (0.2)
[2023-11-08 07:58] LABS: Hematocrit 45.8 % (36-46); Hemoglobin 15.6 g/dL (12.0-16.0); Mean Corpuscular HGB Conc 33.9 % (30-36); Mean Corpuscular Hemoglobin 30.3 PG (26-34); Mean Corpuscular Volume 89.3 fL (80-100); Platelet Count 208 X10^3/uL (150-400); Red Blood Cell Count 5.14 X10^6/uL (4.0-5.2); Red Cell Distribution Width 13.9 % (11.6-14.8); White Blood Cell Count 7.2 X10^3/uL (4.5-11.0)
[2023-11-08 08:00] LABS: Bacteria Urine None Seen; RBC Urine None Seen (0-5/HPF); Squamous Epithelial Cell Urine None Seen (0-5/HPF); Urine Volume 10mL (spun); WBC Urine None Seen (0-5/HPF)
[2023-11-08 08:01] LABS: Culture Indicated Urine Cult Not Indicated
[2023-11-08 08:32] LABS: Alanine Aminotransferase 25 IU/L (<35); Albumin 4.1 g/dL (3.5-5.0); Alkaline Phosphatase 84 U/L (38-126); Aspartate Aminotransferase 31 IU/L (14-36); BUN Creatinine Ratio 22.4 (6-22); Bilirubin Total 0.9 mg/dL (0.2-1.3); Blood Urea Nitrogen 11 mg/dL (7-17); Calcium 9.6 mg/dL (8.4-10.2); Carbon Dioxide 21 mmol/L (22-32); Chloride 110 mmol/L (98-107); Estimated Glomerular Filt Rate > 60 mL/min (>60); Glucose 124 mg/dL (80-110); HEMOLYSIS < 15 (0-50); Magnesium 1.5 mg/dL (1.6-2.3); Phosphorous 3.4 mg/dL (2.8-4.1); Potassium 3.5 mmol/L (3.4-5.1); Sodium 140 mmol/L (137-145); Total Protein 6.6 g/dL (6.3-8.2)
[2023-11-08 08:33] LABS: Albumin Globulin Ratio 1.6 (1.0-2.8); Globulin 2.5 g/dL (1.7-4.1)
[2023-11-08 08:36] LABS: Creatinine Urine Random 26.5 mg/dL; Protein (Total) Urine Random 23 mg/dL (0-12); Protein Creatinine Ratio Urine 0.86 GRAM/24H
[2023-11-09 14:46] LABS: Tacrolimus 5.3 ng/mL (2.0-20.0)
== END ==
LOC: LAB 07:24
PROVIDERS: Family Provider Student in an Organized Health Care Education/Training Program; PCP Family Medicine; Referring Provider Student in an Organized Health Care Education/Training Program; Visit Provider Student in an Organized Health Care Education/Training Program
DX: D70.9 Neutropenia, unspecified (principal); T86.10 Unspecified complication of kidney transplant; D63.1 Anemia in chronic kidney disease; N05.9 Unspecified nephritic syndrome with unspecified morphologic changes; E83.40 Disorders of magnesium metabolism, unspecified; E83.30 Disorder of phosphorus metabolism, unspecified; N30.00 Acute cystitis without hematuria; R80.9 Proteinuria, unspecified
CPT/HCPCS: 36415; 80053; 80197; 81001; 82570; 83735; 84100; 84156; 85027

== ENCOUNTER → 2024-01-19 07:31 | Outpatient (CLI) | payer MEDICARE, OTHER, SELFPAY ==
[2024-01-19 08:28] LABS: Hematocrit 45.2 % (36-46); Hemoglobin 15.2 g/dL (12.0-16.0); Mean Corpuscular HGB Conc 33.5 % (30-36); Mean Corpuscular Hemoglobin 30.6 PG (26-34); Mean Corpuscular Volume 91.2 fL (80-100); Platelet Count 200 X10^3/uL (150-400); Red Blood Cell Count 4.96 X10^6/uL (4.0-5.2); Red Cell Distribution Width 13.3 % (11.6-14.8); White Blood Cell Count 6.8 X10^3/uL (4.5-11.0)
[2024-01-19 08:31] LABS: Appearance Urine UA CLOUDY; Bilirubin Urine UA NEGATIVE (NEGATIVE); Color Urine UA YELLOW; Glucose Urine UA 3+ g/dL (Negative); Ketones Urine UA NEGATIVE (NEGATIVE); Leukocyte Esterase Urine UA NEGATIVE (NEGATIVE); Nitrite Urine UA NEGATIVE (Negative); Occult Blood Urine UA NEGATIVE (Negative); Protein Urine UA NEGATIVE (Negative); Urobilinogen Urine UA 0.2 E.U./dL (0.2); pH Urine UA 6.5 (4.5-8.0)
[2024-01-19 08:39] LABS: Amorphous Sediment Urine 4+; Bacteria Urine Occasional (0-1); Calcium Oxalate Crystals Urine Occasional; Culture Indicated Urine Cult Not Indicated; RBC Urine None Seen (0-5/HPF); Squamous Epithelial Cell Urine None Seen (0-5/HPF); Urine Volume 10mL (spun); WBC Urine 0-1/HPF (0-5/HPF)
[2024-01-19 08:46] LABS: Alanine Aminotransferase 28 IU/L (<35); Albumin 3.8 g/dL (3.5-5.0); Albumin Globulin Ratio 1.7 (1.0-2.8); Alkaline Phosphatase 99 U/L (38-126); Aspartate Aminotransferase 29 IU/L (14-36); Bilirubin Total 0.6 mg/dL (0.2-1.3); Blood Urea Nitrogen 12 mg/dL (7-17); Calcium 9.3 mg/dL (8.4-10.2); Carbon Dioxide 25 mmol/L (22-32); Chloride 107 mmol/L (98-107); Estimated Glomerular Filt Rate > 60 mL/min (>60); Globulin 2.2 g/dL (1.7-4.1); Glucose 119 mg/dL (80-110); HEMOLYSIS < 15 (0-50); Magnesium 1.7 mg/dL (1.6-2.3); Phosphorous 3.2 mg/dL (2.8-4.1); Potassium 4.1 mmol/L (3.4-5.1); Sodium 139 mmol/L (137-145)
[2024-01-19 08:50] LABS: Creatinine Urine Random 67.85 mg/dL; Protein (Total) Urine Random 19 mg/dL (0-12); Protein Creatinine Ratio Urine 0.28 GRAM/24H
== END ==
LOC: LAB 07:33
PROVIDERS: Family Provider Student in an Organized Health Care Education/Training Program; PCP Family Medicine; Referring Provider Student in an Organized Health Care Education/Training Program; Visit Provider Student in an Organized Health Care Education/Training Program
DX: D70.9 Neutropenia, unspecified (principal); N25.81 Secondary hyperparathyroidism of renal origin; D63.1 Anemia in chronic kidney disease; T86.10 Unspecified complication of kidney transplant; N05.9 Unspecified nephritic syndrome with unspecified morphologic changes; E83.40 Disorders of magnesium metabolism, unspecified; E83.30 Disorder of phosphorus metabolism, unspecified; N30.00 Acute cystitis without hematuria; R80.9 Proteinuria, unspecified
CPT/HCPCS: 36415; 80053; 80197; 81001; 82570; 83735; 83970; 84100; 84156; 85027

== ENCOUNTER → 2024-02-23 07:24 | Outpatient (CLI) | payer MEDICARE, OTHER, SELFPAY ==
[2024-02-23 08:21] LABS: Add Manual Diff / Slide Review NO; Basophils Absolute Auto 100 /uL (0-100); Basophils Percent Auto 0.6 % (0-2); Eosinophils Absolute Auto 200 /uL (0-450); Eosinophils Percent Auto 2.4 % (2-4); Hematocrit 46.1 % (36-46); Hemoglobin 15.3 g/dL (12.0-16.0); Lymphocytes Absolute Auto 1200 /uL (1100-4500); Lymphocytes Percent Auto 13.2 % (25-40); Mean Corpuscular HGB Conc 33.1 % (30-36); Mean Corpuscular Hemoglobin 29.8 PG (26-34); Mean Corpuscular Volume 90.1 fL (80-100); Monocytes Absolute Auto 800 /uL (0-900); Monocytes Percent Auto 8.2 % (3-14); Neutrophils Absolute Auto 7100 /uL (1500-7000); Neutrophils Percent Auto 75.6 % (50-75); Platelet Count 258 X10^3/uL (150-400); Red Blood Cell Count 5.12 X10^6/uL (4.0-5.2); Red Cell Distribution Width 13.1 % (11.6-14.8); White Blood Cell Count 9.4 X10^3/uL (4.5-11.0)
[2024-02-23 08:32] LABS: Appearance Urine UA CLEAR; Bilirubin Urine UA NEGATIVE (NEGATIVE); Color Urine UA YELLOW; Glucose Urine UA 3+ g/dL (Negative); Ketones Urine UA NEGATIVE (NEGATIVE); Leukocyte Esterase Urine UA NEGATIVE (NEGATIVE); Nitrite Urine UA NEGATIVE (Negative); Occult Blood Urine UA NEGATIVE (Negative); Protein Urine UA NEGATIVE (Negative); Urobilinogen Urine UA 0.2 E.U./dL (0.2)
[2024-02-23 08:37] LABS: Alanine Aminotransferase 23 IU/L (<35); Albumin 3.8 g/dL (3.5-5.0); Albumin Globulin Ratio 1.7 (1.0-2.8); Alkaline Phosphatase 100 U/L (38-126); Aspartate Aminotransferase 25 IU/L (14-36); BUN Creatinine Ratio 16.7 (6-22); Bilirubin Total 0.6 mg/dL (0.2-1.3); Blood Urea Nitrogen 11 mg/dL (7-17); Calcium 10.1 mg/dL (8.4-10.2); Carbon Dioxide 24 mmol/L (22-32); Chloride 108 mmol/L (98-107); Estimated Glomerular Filt Rate > 60 mL/min (>60); Globulin 2.3 g/dL (1.7-4.1); Glucose 139 mg/dL (80-110); HEMOLYSIS < 15 (0-50); Magnesium 1.5 mg/dL (1.6-2.3); Phosphorous 3.3 mg/dL (2.8-4.1); Potassium 4.5 mmol/L (3.4-5.1); Sodium 139 mmol/L (137-145); Total Protein 6.1 g/dL (6.3-8.2)
[2024-02-23 08:39] LABS: Creatinine Urine Random 23.97 mg/dL; Protein (Total) Urine Random 24 mg/dL (0-12); pH Urine UA 7.5 (4.5-8.0)
[2024-02-23 08:46] LABS: Bacteria Urine None Seen; Culture Indicated Urine Cult Not Indicated; RBC Urine None Seen (0-5/HPF); Squamous Epithelial Cell Urine None Seen (0-5/HPF); Urine Volume 10mL (spun); WBC Urine 0-1/HPF (0-5/HPF)
[2024-02-24 07:36] LABS: Parathyroid Hormone Int 70 pg/mL (15-65); Tacrolimus 7.1 ng/mL (2.0-20.0)
== END ==
PROVIDERS: Family Provider Student in an Organized Health Care Education/Training Program; PCP Family Medicine; Referring Provider Student in an Organized Health Care Education/Training Program; Visit Provider Student in an Organized Health Care Education/Training Program
DX: D70.9 Neutropenia, unspecified (principal); N25.81 Secondary hyperparathyroidism of renal origin; D63.1 Anemia in chronic kidney disease; N05.9 Unspecified nephritic syndrome with unspecified morphologic changes; T86.10 Unspecified complication of kidney transplant; N30.00 Acute cystitis without hematuria; R80.9 Proteinuria, unspecified; E83.30 Disorder of phosphorus metabolism, unspecified; E83.40 Disorders of magnesium metabolism, unspecified
CPT/HCPCS: 36415; 80053; 80197; 81001; 82570; 83735; 83970; 84100; 84156; 85025

== ENCOUNTER → 2024-02-29 13:40 | Outpatient (CLI) | payer MEDICARE, OTHER, SELFPAY ==
--- NOTE | 2024-02-29 | DI.MRI.S_ITS ---
PROCEDURE: MR LUMBAR SPINE WO CON INDICATIONS: HX LUMBAR FUSION,AGE RELATED OSTEOPOROSIS TECHNIQUE: Noncontrast sagittal T1 spin echo and T2 fast echo, sagittal STIR, and T2 fast spin echo through the lumbar spine. In cases with scoliosis, additional coronal T2 fast spin echo may be performed. COMPARISON: None. FINDINGS: Image quality: Excellent. Alignment and Curvature: Grade 1 anterolisthesis of L4 on L5. Straightening of lumbar lordosis. Bone Marrow: Marrow is of normal overall signal. No acute vertebral body compression fractures. Multiple Schmorl nodes. Lipid rich osseous hemangiomas present. It there is near complete fusion of the L5-S1 vertebral body. Spinal Cord: Conus medullaris terminates at the L1 level. Visualized cord demonstrates normal signal and size. Paraspinous Soft Tissues: No paravertebral masses. The ramona kidneys are atrophic and contain numerous cysts. Right lower quadrant transplanted kidney. There is some fatty atrophy of the paravertebral muscles. Intervertebral discs: Multilevel disc desiccation and height loss. T12-L1: No spinal canal stenosis or foraminal stenosis. Bilateral facet arthropathy. L1-L2: No spinal canal stenosis. No foraminal stenosis. Bilateral facet arthropathy. L2-L3: Dorsal disc bulge mildly effaces the ventral thecal sac. No foraminal stenosis. Bilateral facet arthropathy. L3-L4: Dorsal disc bulge mildly effaces the ventral thecal sac. No foraminal stenosis. Bilateral facet arthropathy. L4-L5: Dorsal disc bulge mildly effaces the ventral thecal sac. No foraminal stenosis. Bilateral facet arthropathy. No spinal canal stenosis or foraminal stenosis. L5-S1: Normal appearance. IMPRESSION: 1. No significant spinal canal stenosis or foraminal stenosis. 2. Grade 1 anterolisthesis of L4 on L5 and L5 on S1. There is straightening of cervical lordosis. This finding can be seen in some patients with muscle spasms. 4. Near complete fusion of the L5-S1 vertebral body. Dictated by: Brad Mello M.D. on 03/01/2024 at 8:22 Approved by: Brad Mello M.D. on 03/01/2024 at 8:53
== END ==
LOC: MRI 13:41
PROVIDERS: Family Provider Student in an Organized Health Care Education/Training Program; PCP Family Medicine; Referring Provider Physician Assistant Surgical; Visit Provider Physician Assistant Surgical
DX: M43.16 Spondylolisthesis, lumbar region (principal); M43.17 Spondylolisthesis, lumbosacral region; M47.816 Spondylosis without myelopathy or radiculopathy, lumbar region; M81.0 Age-related osteoporosis without current pathological fracture; Z98.1 Arthrodesis status
CPT/HCPCS: 72148

== ENCOUNTER → 2024-03-28 07:46 | Outpatient (CLI) | payer MEDICARE, OTHER, SELFPAY ==
[2024-03-28 09:21] LABS: Add Manual Diff / Slide Review NO; Basophils Absolute Auto 100 /uL (0-100); Basophils Percent Auto 0.5 % (0-2); Eosinophils Absolute Auto 200 /uL (0-450); Eosinophils Percent Auto 1.7 % (2-4); Hematocrit 46.8 % (36-46); Hemoglobin 15.2 g/dL (12.0-16.0); Lymphocytes Absolute Auto 1300 /uL (1100-4500); Lymphocytes Percent Auto 11.2 % (25-40); Mean Corpuscular HGB Conc 32.5 % (30-36); Mean Corpuscular Hemoglobin 29.2 PG (26-34); Mean Corpuscular Volume 89.7 fL (80-100); Monocytes Absolute Auto 900 /uL (0-900); Monocytes Percent Auto 7.9 % (3-14); Neutrophils Absolute Auto 9300 /uL (1500-7000); Neutrophils Percent Auto 78.7 % (50-75); Platelet Count 315 X10^3/uL (150-400); Red Blood Cell Count 5.21 X10^6/uL (4.0-5.2); Red Cell Distribution Width 13.5 % (11.6-14.8); White Blood Cell Count 11.8 X10^3/uL (4.5-11.0)
[2024-03-28 10:34] LABS: Appearance Urine UA CLEAR; Bilirubin Urine UA NEGATIVE (NEGATIVE); Color Urine UA YELLOW; Glucose Urine UA 3+ g/dL (Negative); Ketones Urine UA NEGATIVE (NEGATIVE); Leukocyte Esterase Urine UA 1+ (NEGATIVE); Nitrite Urine UA NEGATIVE (Negative); Occult Blood Urine UA TRACE-INTACT (Negative); Protein Urine UA NEGATIVE (Negative); Specific Gravity Urine UA <=1.005 (1.000-1.035); Urobilinogen Urine UA 0.2 E.U./dL (0.2); pH Urine UA 6.5 (4.5-8.0)
[2024-03-28 10:39] LABS: Alanine Aminotransferase 23 IU/L (<35); Albumin 3.7 g/dL (3.5-5.0); Albumin Globulin Ratio 1.4 (1.0-2.8); Alkaline Phosphatase 108 U/L (38-126); Aspartate Aminotransferase 26 IU/L (14-36); BUN Creatinine Ratio 16.4 (6-22); Bilirubin Total 1.2 mg/dL (0.2-1.3); Blood Urea Nitrogen 12 mg/dL (7-17); Calcium 10.3 mg/dL (8.4-10.2); Carbon Dioxide 23 mmol/L (22-32); Chloride 102 mmol/L (98-107); Estimated Glomerular Filt Rate > 60 mL/min (>60); Globulin 2.6 g/dL (1.7-4.1); Glucose 166 mg/dL (80-110); HEMOLYSIS < 15 (0-50); Magnesium 1.5 mg/dL (1.6-2.3); Phosphorous 3.9 mg/dL (2.8-4.1); Sodium 137 mmol/L (137-145); Total Protein 6.3 g/dL (6.3-8.2)
[2024-03-28 10:55] LABS: Bacteria Urine None Seen; Culture Indicated Urine Specimen Cultured; RBC Urine 0-1/HPF (0-5/HPF); Squamous Epithelial Cell Urine None Seen (0-5/HPF); Urine Volume 10mL (spun); WBC Urine 10-30/HPF (0-5/HPF)
[2024-03-28 11:28] LABS: Creatinine Urine Random 59.59 mg/dL; Protein (Total) Urine Random 40 mg/dL (0-12); Protein Creatinine Ratio Urine 0.67 GRAM/24H
[2024-03-29 09:36] LABS: Tacrolimus 4.1 ng/mL (2.0-20.0)
== END ==
PROVIDERS: Family Provider Student in an Organized Health Care Education/Training Program; PCP Family Medicine; Referring Provider Internal Medicine Nephrology; Visit Provider Internal Medicine Nephrology
DX: Z94.0 Kidney transplant status (principal)
CPT/HCPCS: 36415; 80053; 80197; 81001; 82570; 83735; 84100; 84156; 85025; 87086

== ENCOUNTER → 2024-05-22 07:27 | Outpatient (CLI) | payer MEDICARE, OTHER, SELFPAY ==
[2024-05-22 09:06] LABS: Add Manual Diff / Slide Review NO; Appearance Urine UA SL CLOUDY; Basophils Absolute Auto 100 /uL (0-100); Basophils Percent Auto 0.8 % (0-2); Bilirubin Urine UA NEGATIVE (NEGATIVE); Color Urine UA YELLOW; Eosinophils Absolute Auto 500 /uL (0-450); Eosinophils Percent Auto 6.1 % (2-4); Glucose Urine UA 2+ g/dL (Negative); Hematocrit 47.7 % (36-46); Hemoglobin 15.6 g/dL (12.0-16.0); Ketones Urine UA TRACE (NEGATIVE); Leukocyte Esterase Urine UA NEGATIVE (NEGATIVE); Lymphocytes Absolute Auto 1000 /uL (1100-4500); Lymphocytes Percent Auto 13.4 % (25-40); Mean Corpuscular HGB Conc 32.7 % (30-36); Mean Corpuscular Hemoglobin 29.3 PG (26-34); Mean Corpuscular Volume 89.7 fL (80-100); Monocytes Absolute Auto 600 /uL (0-900); Monocytes Percent Auto 8.6 % (3-14); Neutrophils Absolute Auto 5400 /uL (1500-7000); Neutrophils Percent Auto 71.1 % (50-75); Nitrite Urine UA NEGATIVE (Negative); Occult Blood Urine UA NEGATIVE (Negative); Platelet Count 254 X10^3/uL (150-400); Protein Urine UA NEGATIVE (Negative); Red Blood Cell Count 5.32 X10^6/uL (4.0-5.2); Red Cell Distribution Width 14.5 % (11.6-14.8); Urobilinogen Urine UA 0.2 E.U./dL (0.2); White Blood Cell Count 7.6 X10^3/uL (4.5-11.0)
[2024-05-22 09:07] LABS: Urine Volume 10mL (spun)
[2024-05-22 09:08] LABS: Amorphous Sediment Urine 2+; Bacteria Urine None Seen; Culture Indicated Urine Cult Not Indicated; RBC Urine None Seen (0-5/HPF); Squamous Epithelial Cell Urine None Seen (0-5/HPF); WBC Urine None Seen (0-5/HPF)
[2024-05-22 09:25] LABS: Creatinine Urine Random 43.07 mg/dL; Protein (Total) Urine Random 26 mg/dL (0-12)
[2024-05-22 09:32] LABS: Alanine Aminotransferase 28 IU/L (<35); Albumin 3.9 g/dL (3.5-5.0); Albumin Globulin Ratio 1.6 (1.0-2.8); Alkaline Phosphatase 105 U/L (38-126); Aspartate Aminotransferase 29 IU/L (14-36); BUN Creatinine Ratio 14.8 (6-22); Bilirubin Total 0.8 mg/dL (0.2-1.3); Blood Urea Nitrogen 9 mg/dL (7-17); Carbon Dioxide 22 mmol/L (22-32); Chloride 108 mmol/L (98-107); Estimated Glomerular Filt Rate > 60 mL/min (>60); Globulin 2.5 g/dL (1.7-4.1); Glucose 101 mg/dL (80-110); HEMOLYSIS < 15 (0-50); Magnesium 1.5 mg/dL (1.6-2.3); Phosphorous 2.8 mg/dL (2.8-4.1); Potassium 3.7 mmol/L (3.4-5.1); Sodium 139 mmol/L (137-145); Total Protein 6.4 g/dL (6.3-8.2)
[2024-05-24 07:11] LABS: Parathyroid Hormone Int 60 pg/mL (15-65)
== END ==
PROVIDERS: Family Provider Student in an Organized Health Care Education/Training Program; PCP Family Medicine; Referring Provider Student in an Organized Health Care Education/Training Program; Visit Provider Student in an Organized Health Care Education/Training Program
DX: D70.9 Neutropenia, unspecified (principal); N25.81 Secondary hyperparathyroidism of renal origin; N05.9 Unspecified nephritic syndrome with unspecified morphologic changes; T86.10 Unspecified complication of kidney transplant; E83.40 Disorders of magnesium metabolism, unspecified; E83.30 Disorder of phosphorus metabolism, unspecified; R80.9 Proteinuria, unspecified; N30.00 Acute cystitis without hematuria; R00.9 Unspecified abnormalities of heart beat
CPT/HCPCS: 36415; 80053; 80197; 81001; 82570; 83735; 83970; 84100; 84156; 85025

== ENCOUNTER → 2024-08-23 09:01 | Outpatient (CLI) | payer MEDICARE, OTHER, SELFPAY ==
[2024-08-23 09:47] LABS: Add Manual Diff / Slide Review NO; Basophils Absolute Auto 0 /uL (0-100); Basophils Percent Auto 0.6 % (0-2); Eosinophils Absolute Auto 400 /uL (0-450); Eosinophils Percent Auto 4.4 % (2-4); Hematocrit 47.9 % (36-46); Hemoglobin 15.7 g/dL (12.0-16.0); Lymphocytes Absolute Auto 1100 /uL (1100-4500); Lymphocytes Percent Auto 14.4 % (25-40); Mean Corpuscular HGB Conc 32.8 % (30-36); Mean Corpuscular Hemoglobin 29.9 PG (26-34); Mean Corpuscular Volume 91.3 fL (80-100); Monocytes Absolute Auto 500 /uL (0-900); Monocytes Percent Auto 6.7 % (3-14); Neutrophils Absolute Auto 5900 /uL (1500-7000); Neutrophils Percent Auto 73.9 % (50-75); Platelet Count 245 X10^3/uL (150-400); Red Blood Cell Count 5.25 X10^6/uL (4.0-5.2); Red Cell Distribution Width 14.3 % (11.6-14.8); White Blood Cell Count 7.9 X10^3/uL (4.5-11.0)
[2024-08-23 10:00] LABS: Appearance Urine UA CLOUDY; Bilirubin Urine UA NEGATIVE (NEGATIVE); Color Urine UA YELLOW; Glucose Urine UA 3+ g/dL (Negative); Ketones Urine UA NEGATIVE (NEGATIVE); Leukocyte Esterase Urine UA NEGATIVE (NEGATIVE); Nitrite Urine UA NEGATIVE (Negative); Occult Blood Urine UA NEGATIVE (Negative); Protein Urine UA NEGATIVE (Negative); Urobilinogen Urine UA 0.2 E.U./dL (0.2)
[2024-08-23 10:06] LABS: Amorphous Sediment Urine 3+; Bacteria Urine None Seen; Culture Indicated Urine Cult Not Indicated; RBC Urine None Seen (0-5/HPF); Squamous Epithelial Cell Urine None Seen (0-5/HPF); Urine Volume 10mL (spun); WBC Urine 1-5/HPF (0-5/HPF)
[2024-08-23 10:10] LABS: Alanine Aminotransferase 39 IU/L (<35); Albumin Globulin Ratio 1.7 (1.0-2.8); Alkaline Phosphatase 86 U/L (38-126); Aspartate Aminotransferase 36 IU/L (14-36); BUN Creatinine Ratio 19.2 (6-22); Bilirubin Total 0.6 mg/dL (0.2-1.3); Blood Urea Nitrogen 14 mg/dL (7-17); Calcium 10.1 mg/dL (8.4-10.2); Carbon Dioxide 24 mmol/L (22-32); Chloride 109 mmol/L (98-107); Cholesterol 158 mg/dL (140-199); Estimated Glomerular Filt Rate > 60 mL/min (>60); Globulin 2.3 g/dL (1.7-4.1); Glucose 114 mg/dL (80-110); HDL Cholesterol 63 mg/dL (40-60); HEMOLYSIS < 15 (0-50); LDL Cholesterol Calculated 61 mg/dL (<100); Sodium 139 mmol/L (137-145); Total Protein 6.3 g/dL (6.3-8.2); Triglycerides 172 mg/dL (35-150)
[2024-08-23 10:10] LABS: Creatinine Urine Random 78.55 mg/dL; Protein (Total) Urine Random 19 mg/dL (0-12); Protein Creatinine Ratio Urine 0.24 GRAM/24H
[2024-08-23 10:11] LABS: Magnesium 1.6 mg/dL (1.6-2.3); Phosphorous 3.7 mg/dL (2.8-4.1)
[2024-08-23 10:41] LABS: TSH w/ Reflex to FT4 < 0.02 uIU/mL (0.47-4.68)
[2024-08-23 11:50] LABS: Free T4, Direct Thyroxine 1.51 ng/dL (0.78-2.19)
[2024-08-24 08:40] LABS: Tacrolimus 4.2 ng/mL (5.0-20.0)
[2024-08-24 10:08] LABS: Calcium 9.9 mg/dL (8.7-10.3); Parathyroid Hormone, Intact 75 pg/mL (15-65)
[2024-08-25 19:40] LABS: BK Virus, DNA, QN, PCR Negative (Negative)
== END ==
LOC: LAB 09:04
PROVIDERS: Family Provider Student in an Organized Health Care Education/Training Program; PCP Family Medicine; Referring Provider Student in an Organized Health Care Education/Training Program; Visit Provider Student in an Organized Health Care Education/Training Program
DX: T86.10 Unspecified complication of kidney transplant; E78.5 Hyperlipidemia, unspecified; N25.81 Secondary hyperparathyroidism of renal origin; D70.9 Neutropenia, unspecified; D63.1 Anemia in chronic kidney disease; N05.9 Unspecified nephritic syndrome with unspecified morphologic changes; E83.40 Disorders of magnesium metabolism, unspecified; Z94.0 Kidney transplant status; R80.9 Proteinuria, unspecified; I10 Essential (primary) hypertension; N30.00 Acute cystitis without hematuria; B34.9 Viral infection, unspecified; E83.30 Disorder of phosphorus metabolism, unspecified
CPT/HCPCS: 36415; 80053; 80061; 80197; 81001; 82310; 82570; 83735; 83970; 84100; 84156; 84439; 84443; 85025; 87799

== ENCOUNTER → 2025-04-08 10:39 | Outpatient (CLI) | payer MEDICARE, OTHER, SELFPAY ==
[2025-04-08 20:37] LABS: Appearance Urine UA CLEAR; Bilirubin Urine UA NEGATIVE (NEGATIVE); Color Urine UA YELLOW; Glucose Urine UA 3+ g/dL (Negative); Ketones Urine UA NEGATIVE (NEGATIVE); Leukocyte Esterase Urine UA TRACE (NEGATIVE); Nitrite Urine UA NEGATIVE (Negative); Occult Blood Urine UA NEGATIVE (Negative); Protein Urine UA NEGATIVE (Negative); Specific Gravity Urine UA 1.010 (1.000-1.035); Urobilinogen Urine UA 0.2 E.U./dL (0.2)
[2025-04-08 20:38] LABS: pH Urine UA 6.0 (4.5-8.0)
== END ==
PROVIDERS: PCP Family Medicine; Visit Provider Family Medicine
DX: N30.00 Acute cystitis without hematuria (principal)
CPT/HCPCS: 81003; 81015; 87077; 87086; 87147; 87186

== ENCOUNTER → 2025-05-28 09:53 | Outpatient (CLI) | payer MEDICARE, OTHER, SELFPAY ==
[2025-05-28 10:35] LABS: Appearance Urine UA CLEAR; Bilirubin Urine UA NEGATIVE (NEGATIVE); Color Urine UA YELLOW; Glucose Urine UA 3+ g/dL (Negative); Ketones Urine UA NEGATIVE (NEGATIVE); Leukocyte Esterase Urine UA NEGATIVE (NEGATIVE); Nitrite Urine UA NEGATIVE (Negative); Occult Blood Urine UA NEGATIVE (Negative); Protein Urine UA NEGATIVE (Negative); Specific Gravity Urine UA 1.010 (1.000-1.035); Urobilinogen Urine UA 0.2 E.U./dL (0.2)
[2025-05-28 10:36] LABS: Add Manual Diff / Slide Review NO; Hematocrit 48.4 % (36-46); Hemoglobin 16.0 g/dL (12.0-16.0); Lymphocytes Absolute Auto 1100 /uL (1100-4500); Mean Corpuscular HGB Conc 33.0 % (30-36); Mean Corpuscular Hemoglobin 29.5 PG (26-34); Mean Corpuscular Volume 89.2 fL (80-100); Platelet Count 227 X10^3/uL (150-400)
[2025-05-28 10:40] LABS: pH Urine UA 6.0 (4.5-8.0)
[2025-05-28 10:44] LABS: Culture Indicated Urine Cult Not Indicated
[2025-05-28 10:53] LABS: Protein (Total) Urine Random 21 mg/dL (0-12); Protein Creatinine Ratio Urine 0.41 GRAM/24H
[2025-05-28 10:56] LABS: Alanine Aminotransferase 33 IU/L (<35); Albumin 3.9 g/dL (3.5-5.0); Albumin Globulin Ratio 1.5 (1.0-2.8); Alkaline Phosphatase 77 U/L (38-126); Blood Urea Nitrogen 14 mg/dL (7-17); Calcium 9.8 mg/dL (8.4-10.2); Carbon Dioxide 22 mmol/L (22-32); Chloride 104 mmol/L (98-107); Estimated Glomerular Filt Rate > 60 mL/min (>60); Globulin 2.6 g/dL (1.7-4.1); Glucose 143 mg/dL (70-99); Magnesium 1.6 mg/dL (1.6-2.3); Phosphorous 3.6 mg/dL (2.8-4.1); Potassium 4.0 mmol/L (3.4-5.1); Sodium 139 mmol/L (137-145); Total Protein 6.5 g/dL (6.3-8.2)
[2025-05-28 10:57] LABS: HEMOLYSIS 58 (0-50)
== END ==
PROVIDERS: PCP Family Medicine; Referring Provider Student in an Organized Health Care Education/Training Program; Visit Provider Student in an Organized Health Care Education/Training Program
DX: B34.9 Viral infection, unspecified (principal); N25.81 Secondary hyperparathyroidism of renal origin; D63.1 Anemia in chronic kidney disease; D70.9 Neutropenia, unspecified; E83.30 Disorder of phosphorus metabolism, unspecified; E83.40 Disorders of magnesium metabolism, unspecified; N05.9 Unspecified nephritic syndrome with unspecified morphologic changes; N30.00 Acute cystitis without hematuria; R80.9 Proteinuria, unspecified
CPT/HCPCS: 36415; 80053; 81001; 82570; 83735; 83970; 84100; 84156; 85025; 87799

== ENCOUNTER → 2025-06-06 07:27 | Outpatient (CLI) | payer MEDICARE, OTHER, SELFPAY | PROVIDERS: PCP Family Medicine; Referring Provider Student in an Organized Health Care Education/Training Program; Visit Provider Student in an Organized Health Care Education/Training Program | DX: T86.10 Unspecified complication of kidney transplant (principal) | CPT/HCPCS: 36415; 80197 ==